=== PATIENT | female | born 1940 | race Caucasian/White ===

== ENCOUNTER → 2019-10-24 11:47 | Outpatient (BNVA) | payer MEDICARE, OTHER, SELFPAY | PROVIDERS: Family Provider Family Medicine; PCP Family Medicine; Referring Provider Family Medicine; Visit Provider Specialist | DX: M25.561 Pain in right knee (principal); M77.31 Calcaneal spur, right foot | CPT/HCPCS: 73560; 73565 ==

== ENCOUNTER → 2019-11-16 10:56 | Outpatient (BNVA) | payer MEDICARE, OTHER, SELFPAY | PROVIDERS: Family Provider Family Medicine; PCP Family Medicine; Visit Provider Nurse Practitioner | DX: R05 Cough (principal); R50.9 Fever, unspecified; J01.10 Acute frontal sinusitis, unspecified; J20.8 Acute bronchitis due to other specified organisms; B96.89 Other specified bacterial agents as the cause of diseases classified elsewhere | CPT/HCPCS: 87804 ==

== ENCOUNTER → 2019-11-22 00:01 | Outpatient (BNVA) | payer MEDICARE, OTHER, SELFPAY | PROVIDERS: Family Provider Family Medicine; PCP Family Medicine; Visit Provider Nurse Practitioner Family | DX: R05 Cough (principal); J02.9 Acute pharyngitis, unspecified; Z79.01 Long term (current) use of anticoagulants; E11.9 Type 2 diabetes mellitus without complications; J20.8 Acute bronchitis due to other specified organisms; B96.89 Other specified bacterial agents as the cause of diseases classified elsewhere; J32.9 Chronic sinusitis, unspecified; Z95.0 Presence of cardiac pacemaker; I51.7 Cardiomegaly | CPT/HCPCS: 71046; 83036; 85025; 85610; 87081; 87880 ==

== ENCOUNTER → 2020-01-16 12:35 | Outpatient (BNVA) | payer MEDICARE, OTHER, SELFPAY | PROVIDERS: Family Provider Family Medicine; PCP Family Medicine; Visit Provider Family Medicine | DX: I48.91 Unspecified atrial fibrillation (principal) | CPT/HCPCS: 85610 ==

== ENCOUNTER → 2020-04-10 11:16 | Outpatient (BNVA) | payer MEDICARE, OTHER, SELFPAY | PROVIDERS: Family Provider Family Medicine; PCP Nurse Practitioner Family; Visit Provider Nurse Practitioner Family | DX: E11.65 Type 2 diabetes mellitus with hyperglycemia (principal); I48.91 Unspecified atrial fibrillation; E55.9 Vitamin D deficiency, unspecified | CPT/HCPCS: 80053; 80061; 82306; 83036; 85025; 85610 ==

== ENCOUNTER → 2020-04-14 10:24 | Outpatient (BNVA) | payer MEDICARE, OTHER, SELFPAY | PROVIDERS: Family Provider Family Medicine; PCP Nurse Practitioner Family; Visit Provider Nurse Practitioner Family | DX: E11.9 Type 2 diabetes mellitus without complications (principal); I10 Essential (primary) hypertension; E11.65 Type 2 diabetes mellitus with hyperglycemia | CPT/HCPCS: 82043 ==

== ENCOUNTER → 2020-05-20 14:30 | Outpatient (BNVA) | payer MEDICARE, OTHER, SELFPAY | PROVIDERS: Family Provider Family Medicine; PCP Nurse Practitioner Family | DX: I48.91 Unspecified atrial fibrillation (principal); Z95.0 Presence of cardiac pacemaker | CPT/HCPCS: 85610 ==

== ENCOUNTER → 2020-07-06 12:12 | Outpatient (BNVA) | payer MEDICARE, OTHER, SELFPAY | PROVIDERS: Family Provider Family Medicine; PCP Nurse Practitioner Family; Visit Provider Nurse Practitioner Family | DX: I10 Essential (primary) hypertension (principal); E11.9 Type 2 diabetes mellitus without complications; Z79.01 Long term (current) use of anticoagulants | CPT/HCPCS: 80053; 80061; 83036; 85025; 85610 ==

== ENCOUNTER → 2020-08-26 16:55 | Outpatient (BNVA) | payer MEDICARE, OTHER, SELFPAY | PROVIDERS: Family Provider Family Medicine; PCP Nurse Practitioner Family; Visit Provider Nurse Practitioner Family | DX: I48.91 Unspecified atrial fibrillation (principal) | CPT/HCPCS: 85610 ==

== ENCOUNTER 2020-08-28 10:09 | Outpatient (CLI) | payer MEDICARE, OTHER, SELFPAY ==
--- NOTE | 2020-08-28 | CT_ITS ---
WS: [id number] CT NECK TECHNIQUE: Contrast-enhanced CT of the neck with coronal and sagittal reformatted images. CLINICAL INFORMATION: DISORDERS OF NOSE AND NASAL SINUSES COMPARISON: CT neck 3 13,018 DLP: 2855.[address] scans at [facility] use at least one of these dose optimization techniques: automat ed exposure control; mA and/or kV adjustment per patient size (includes targeted exams where dose is matched to clinical indication); or iterative reconstruction. FINDINGS: Parotid glands are normal. Normal submandibular glands. Dental artifact degrades images at the skull base. Mastoid air cells and paranasal sinuses are well aerated. Normal parapharyngeal fat. Normal pos terior nasopharynx. No cervical lymphadenopathy. No evidence of supraglottic or glottic mass. Normal epiglottis. Subglottic airway is normal. Multinodular enlarged thyroid similar in appearance to previ ous. Lung apices are well aerated. Partially visualized intracranial contents are normal. Hypertrophic diego nges cervical spine. Cervical lymphadenopathy. CT/CT neck w con* [id number] IMPRESSION: 1. Salivary glands are normal in appearance. 2. No evidence of supraglottic or glottic mass. Subglottic airway is normal. 3. No cervical lymphadenopathy. 4. Multinodular enlarged thyroid is unchanged.
[2020-08-28 10:54] LABS: Blood Urea Nitrogen 21 mg/dL (8-23)
== END 2020-08-28 10:10 | disposition home or self-care (01) ==
LOC: RADWPI 10:16
PROVIDERS: PCP Family Medicine; Visit Provider Specialist
DX: J34.89 Other specified disorders of nose and nasal sinuses (principal); R13.19 Other dysphagia; E04.2 Nontoxic multinodular goiter
CPT/HCPCS: 70491; 82565; 84520

== ENCOUNTER → 2020-11-19 11:25 | Outpatient (BNVA) | payer MEDICARE, OTHER, SELFPAY | PROVIDERS: PCP Family Medicine; Visit Provider Specialist | DX: M17.11 Unilateral primary osteoarthritis, right knee (principal) ==

== ENCOUNTER → 2021-01-14 11:33 | Outpatient (BNVA) | payer MEDICARE, OTHER, SELFPAY | PROVIDERS: PCP Family Medicine; Visit Provider Nurse Practitioner Family | DX: E78.2 Mixed hyperlipidemia (principal); I10 Essential (primary) hypertension; E11.9 Type 2 diabetes mellitus without complications; I48.19 Other persistent atrial fibrillation; M1A.9XX0 Chronic gout, unspecified, without tophus (tophi); J30.89 Other allergic rhinitis; Z79.4 Long term (current) use of insulin | CPT/HCPCS: 80053; 80061; 83036; 84443; 84550; 85025; 85610 ==

== ENCOUNTER → 2021-01-18 12:09 | Outpatient (BNVA) | payer MEDICARE, OTHER, SELFPAY | PROVIDERS: PCP Family Medicine; Visit Provider Nurse Practitioner Family | DX: I48.19 Other persistent atrial fibrillation (principal) | CPT/HCPCS: 85610 ==

== ENCOUNTER → 2021-02-01 11:53 | Outpatient (BNVA) | payer MEDICARE, OTHER, SELFPAY | PROVIDERS: PCP Family Medicine; Visit Provider Family Medicine | DX: I48.19 Other persistent atrial fibrillation (principal) | CPT/HCPCS: 85610 ==

== ENCOUNTER → 2021-02-17 15:39 | Outpatient (BNVA) | payer MEDICARE, OTHER, SELFPAY | PROVIDERS: PCP Family Medicine; Visit Provider Nurse Practitioner Family | DX: I48.19 Other persistent atrial fibrillation (principal) | CPT/HCPCS: 85610 ==

== ENCOUNTER → 2021-03-01 13:52 | Outpatient (BNVA) | payer MEDICARE, OTHER, SELFPAY | PROVIDERS: PCP Family Medicine; Visit Provider Nurse Practitioner Family | DX: R19.7 Diarrhea, unspecified (principal) | CPT/HCPCS: 83630; 87493; 87506 ==

== ENCOUNTER → 2021-03-24 11:18 | Outpatient (BNVA) | payer MEDICARE, OTHER, SELFPAY | PROVIDERS: PCP Family Medicine; Visit Provider Family Medicine | DX: R19.7 Diarrhea, unspecified (principal); I48.19 Other persistent atrial fibrillation | CPT/HCPCS: 85610; 87338 ==

== ENCOUNTER → 2021-04-26 11:32 | Outpatient (BNVA) | payer MEDICARE, OTHER, SELFPAY | PROVIDERS: PCP Family Medicine; Visit Provider Nurse Practitioner Family | DX: R79.89 Other specified abnormal findings of blood chemistry (principal); I48.19 Other persistent atrial fibrillation | CPT/HCPCS: 84439; 84443; 84481; 85610 ==

== ENCOUNTER 2021-06-03 09:24 | Outpatient (CLI) | payer MEDICARE, OTHER, SELFPAY ==
--- NOTE | 2021-06-03 09:44 | FL_ITS ---
WS: [id number] ESOPHAGRAM TECHNIQUE: Double contrast examination was performed with thin and thick barium. Upright and BEGUM imag es were obtained. CLINICAL INFORMATION: DYSPHAGIA COMPARISON: Barium swallow 3 16,018 FINDINGS: Exam is somewhat limited due to difficulty swallowing. Swallowing: No evidence of aspiration or penetration. Delayed oropharyngeal phase with small swallows . Esophagus: Moderate to advanced esophageal dysmotility with delayed emptying on the upright and supin e positions. No high-grade stricture or obstructing mass. Gastroesophageal reflux: Moderate reflux is visualized in the supine position with delayed emptying. Small esophageal hiatal hernia. Moderate spondylitic changes cervical spine with protruding osteophytes at C4-C6 with slight indentat ion on the pharynx. No significant pharyngeal stenosis. Cardiac pacer. * Fluoroscopy time: 2.8 minutes. FL/FL barium swallow [id number] IMPRESSION: 1. No evidence of high-grade stricture or obstructing mass. 2. Moderate to advanced esophageal dysmotility with delayed emptying. Associat ed tertiary contractions. 3. Moderate esophageal reflux on the supine imaging with delayed emptying. Sma ll esophageal hiatal hernia. 4. No aspiration or penetration.
--- NOTE | 2021-06-03 09:44 | CT_ITS ---
WS: [id number] CT NECK TECHNIQUE: Contrast-enhanced CT of the neck with coronal and sagittal reformatted images. CLINICAL INFORMATION: DYSPHAGIA COMPARISON: CT neck August 28, 2020 DLP: 980.[address] scans at [facility] use at least one of these dose optimization techniques: automated e xposure control; mA and/or kV adjustment per patient size (includes targeted exams where dose is matc hed to clinical indication); or iterative reconstruction. FINDINGS: Parotid glands are normal. Normal submandibular glands. Paranasal sinuses and mastoid air cells well aerated. No evidence of supraglottic or glottic mass. Normal posterior nasopharynx. Normal parapharyn geal fat. Normal vallecula. Subglottic airway is normal. Mild smooth soft tissue thickening along the posterior pharynx at the level of the hyoid with loss of the normal flat fat plane. This is likely related to prominent anterior hypertrophic changes at C4-C 6 with a small amount of retropharyngeal fluid. This can be further evaluated with endoscopy. Multino dular enlarged thyroid with mild right to left mass effect on the trachea unchanged from previous. No significant airway stenosis. No cervical lymphadenopathy. Lung apices are well aerated. Moderate spondylitic changes cervical spine. No cervical lymphadenopathy. CT/CT neck w con* [id number] IMPRESSION: 1. Normal salivary glands. 2. Mild posterior pharyngeal soft tissue thickening at the level of the hyoid extending from C4 through C6 likely related to anterior hypertrophic cervical c hanges with soft tissue thickening and a small amount of inflammatory retrophar yngeal fluid. This appears new or more prominent compared to previous. 3. Otherwise no evidence of supraglottic or glottic mass. 4. No cervical lymphadenopathy. 5. Multinodular heterogeneous enlarged thyroid unchanged from previous with mi ld mass effect on the upper trachea. 6. Paranasal sinuses and mastoid air cells are well aerated. 7. No other significant findings.
[2021-06-03 10:27] LABS: Blood Urea Nitrogen 23 mg/dL (8-23)
[2021-06-03] MEDS: iohexol 300 mg/mL 100 mL Btl IV (10:36)
== END 2021-06-03 09:25 | disposition home or self-care (01) ==
PROVIDERS: PCP Family Medicine; Visit Provider Specialist
DX: R13.19 Other dysphagia (principal); E04.2 Nontoxic multinodular goiter; K21.9 Gastro-esophageal reflux disease without esophagitis
CPT/HCPCS: 70491; 74220; 82565; 84520; Q9967

== ENCOUNTER → 2021-06-11 13:58 | Outpatient (BNVA) | payer MEDICARE, OTHER, SELFPAY | PROVIDERS: PCP Family Medicine; Visit Provider Nurse Practitioner Family | DX: I48.19 Other persistent atrial fibrillation (principal); Z79.01 Long term (current) use of anticoagulants | CPT/HCPCS: 85610 ==

== ENCOUNTER → 2021-07-07 11:09 | Outpatient (BNVA) | payer MEDICARE, OTHER, SELFPAY | PROVIDERS: PCP Family Medicine; Visit Provider Internal Medicine | DX: E11.9 Type 2 diabetes mellitus without complications (principal); E78.2 Mixed hyperlipidemia; I10 Essential (primary) hypertension; Z79.4 Long term (current) use of insulin; I48.19 Other persistent atrial fibrillation | CPT/HCPCS: 80053; 80061; 83036; 84439; 84443; 84480; 85025; 85610 ==

== ENCOUNTER → 2021-07-14 14:44 | Outpatient (BNVA) | payer MEDICARE, OTHER, SELFPAY | PROVIDERS: PCP Family Medicine; Visit Provider Family Medicine | DX: R79.89 Other specified abnormal findings of blood chemistry (principal) | CPT/HCPCS: 80053 ==

== ENCOUNTER → 2021-08-17 10:58 | Outpatient (BNVA) | payer MEDICARE, OTHER, SELFPAY | PROVIDERS: PCP Family Medicine; Visit Provider Family Medicine | DX: R07.81 Pleurodynia (principal); Z71.89 Other specified counseling | CPT/HCPCS: 71046; 80048; 84439; 84443; 84480; 85610 ==

== ENCOUNTER → 2021-09-15 13:40 | Outpatient (BNVA) | payer MEDICARE, OTHER, SELFPAY | PROVIDERS: PCP Family Medicine; Visit Provider Internal Medicine | DX: E05.90 Thyrotoxicosis, unspecified without thyrotoxic crisis or storm (principal); E07.9 Disorder of thyroid, unspecified; E11.42 Type 2 diabetes mellitus with diabetic polyneuropathy; Z79.4 Long term (current) use of insulin | CPT/HCPCS: 99214 ==

== ENCOUNTER → 2021-11-08 11:58 | Outpatient (BNVA) | payer MEDICARE, OTHER, SELFPAY | PROVIDERS: PCP Family Medicine; Visit Provider Nurse Practitioner Family | DX: N61.0 Mastitis without abscess (principal); Z20.822 Contact with and (suspected) exposure to COVID-19 | CPT/HCPCS: 87635 ==

== ENCOUNTER 2021-11-16 11:33 | Outpatient (CLI) | payer MEDICARE, OTHER, SELFPAY ==
--- NOTE | 2021-11-16 11:38 | MM_ITS ---
WS: [id number] SCREENING DIGITAL MAMMOGRAM WITH CAD HISTORY: SCREEN COMPARISON: 05/23/2019, 11/28/2017 at 08/09/2016 Bilateral CC and MLO views submitted. Computer aided detection analyzed. Breast composition: The breasts are heterogeneously dense, which may obscure small masses. There are numerous masses within each breast. Majority of these are stable. Some of these are moles. There is o ne mass measuring 6 mm along the posterior LEFT chest wall just medial to the nipple line. Not defini tely visualized on the lateral projection. This may be a mole but it is not marked. This 6 mm nodule was not seen on the prior studies. MM/[place] [id number] IMPRESSION: BI-RADS: 0-Incomplete: Need additional imaging evaluation FOLLOW UP: Need Additional Imaging LEFT breast: Spot compression views (CC and MLO). True ML. Ultrasound to follow if abnormality persists. Attempted evaluation of the 6 mm nodule in the diathermy equipment repairer ior LEFT breast. This may be a mole without a marker placed. Not definitely vis ualized on prior studies.
== END 2021-11-16 11:34 | disposition home or self-care (01) ==
LOC: RADSHAW 11:34
PROVIDERS: PCP Family Medicine; Visit Provider Family Medicine
DX: Z12.31 Encounter for screening mammogram for malignant neoplasm of breast (principal)
CPT/HCPCS: 77067

== ENCOUNTER → 2021-11-30 08:29 | Outpatient (BNVA) | payer MEDICARE, OTHER, SELFPAY | PROVIDERS: PCP Family Medicine; Visit Provider Nurse Practitioner Family | DX: E11.42 Type 2 diabetes mellitus with diabetic polyneuropathy (principal); M1A.9XX0 Chronic gout, unspecified, without tophus (tophi); I48.91 Unspecified atrial fibrillation; E78.5 Hyperlipidemia, unspecified; I10 Essential (primary) hypertension | CPT/HCPCS: 80053; 80061; 82043; 83036; 84550; 85025; 85610 ==

== ENCOUNTER 2021-12-03 10:53 | Outpatient (CLI) | payer MEDICARE, OTHER, SELFPAY ==
--- NOTE | 2021-12-03 12:00 | MM_ITS ---
WS: [id number] LEFT 3D TOMOSYNTHESIS DIGITAL MAMMOGRAPHY WITH CAD CLINICAL INFORMATION: LT BREAST NODULE HISTORY: COMPARISON: November 16, 2021 TECHNIQUE: 4 views of the left breast were obtained. FINDINGS: Scattered fibroglandular densities of the left breast. Again seen is a 6 mm nodule along the posterio r LEFT chest wall at the edge of the [id number]. This may represent an intramammary lymph node. Ul trasound is pending. ULTRASOUND BREAST LEFT TECHNIQUE: Ultrasound left breast focused area of concern. CLINICAL INFORMATION: LT BREAST NODULE COMPARISON: None. FINDINGS: Ultrasound LEFT breast 6 to 9:00 position. Small 5 x 5 x 3 mm hypoechoic lesion at the 6:00 position may represent a complex cyst or semisolid lesion. Additional complex cyst at the 7:00 position measur ing 5 x 5 x 3 mm. Findings are probably benign. Recommend 6 month follow-up. MM/MM tomos[place] [id number] IMPRESSION: BI-RADS: 3-Probably Benign FOLLOW UP: 6 Month Follow-up Recommend 6 month follow-up LEFT diagnostic mammography and ultrasound.
== END 2021-12-03 10:54 | disposition home or self-care (01) ==
PROVIDERS: PCP Family Medicine; Visit Provider Family Medicine
DX: N63.25 Unspecified lump in the left breast, overlapping quadrants (principal); N60.02 Solitary cyst of left breast
CPT/HCPCS: 76642; 77061

== ENCOUNTER → 2022-01-13 14:33 | Outpatient (BNVA) | payer MEDICARE, OTHER, SELFPAY | PROVIDERS: PCP Family Medicine; Visit Provider Internal Medicine | DX: E11.42 Type 2 diabetes mellitus with diabetic polyneuropathy (principal); E07.9 Disorder of thyroid, unspecified; Z79.4 Long term (current) use of insulin | CPT/HCPCS: 99214 ==

== ENCOUNTER → 2022-01-21 10:36 | Outpatient (BNVA) | payer MEDICARE, OTHER, SELFPAY | PROVIDERS: PCP Family Medicine; Visit Provider Internal Medicine Cardiovascular Disease | DX: I48.19 Other persistent atrial fibrillation (principal); Z45.010 Encounter for checking and testing of cardiac pacemaker pulse generator [battery]; I12.9 Hypertensive chronic kidney disease with stage 1 through stage 4 chronic kidney disease, or unspecified chronic kidney disease; E11.22 Type 2 diabetes mellitus with diabetic chronic kidney disease; N18.9 Chronic kidney disease, unspecified; Z79.4 Long term (current) use of insulin; Z79.84 Long term (current) use of oral hypoglycemic drugs; E11.42 Type 2 diabetes mellitus with diabetic polyneuropathy; E78.5 Hyperlipidemia, unspecified; Z79.01 Long term (current) use of anticoagulants | CPT/HCPCS: 93280; 99213 ==

== ENCOUNTER → 2022-01-27 14:48 | Outpatient (BNVA) | payer MEDICARE, OTHER, SELFPAY | PROVIDERS: PCP Family Medicine; Visit Provider Nurse Practitioner Family | DX: Z79.01 Long term (current) use of anticoagulants (principal) | CPT/HCPCS: 85610 ==

== ENCOUNTER → 2022-02-17 10:21 | Outpatient (BNVA) | payer MEDICARE, OTHER, SELFPAY | PROVIDERS: PCP Family Medicine; Visit Provider Specialist | DX: M17.0 Bilateral primary osteoarthritis of knee (principal); M25.561 Pain in right knee; M25.562 Pain in left knee | CPT/HCPCS: 20610; 73560; 73565; 99213; J7326 ==

== ENCOUNTER → 2022-03-10 14:20 | Outpatient (BNVA) | payer MEDICARE, OTHER, SELFPAY | PROVIDERS: PCP Family Medicine; Visit Provider Nurse Practitioner Family | DX: I48.91 Unspecified atrial fibrillation (principal) | CPT/HCPCS: 85610 ==

== ENCOUNTER → 2022-03-30 14:01 | Outpatient (BNVA) | payer MEDICARE, OTHER, SELFPAY | PROVIDERS: PCP Family Medicine; Visit Provider Nurse Practitioner Family | DX: I48.91 Unspecified atrial fibrillation (principal); E11.9 Type 2 diabetes mellitus without complications; Z79.4 Long term (current) use of insulin; E11.42 Type 2 diabetes mellitus with diabetic polyneuropathy | CPT/HCPCS: 83036; 84439; 84443; 85610 ==

== ENCOUNTER → 2022-04-08 09:39 | Outpatient (BNVA) | payer MEDICARE, OTHER, SELFPAY | PROVIDERS: PCP Family Medicine; Visit Provider Nurse Practitioner Family | DX: I10 Essential (primary) hypertension (principal); J06.9 Acute upper respiratory infection, unspecified; Z20.822 Contact with and (suspected) exposure to COVID-19; Z11.52 Encounter for screening for COVID-19; J02.9 Acute pharyngitis, unspecified | CPT/HCPCS: 80053 ==

== ENCOUNTER → 2022-05-06 15:21 | Outpatient (BNVA) | payer MEDICARE, OTHER, SELFPAY | PROVIDERS: PCP Family Medicine; Visit Provider Family Medicine | DX: I48.91 Unspecified atrial fibrillation (principal) | CPT/HCPCS: 85610 ==

== ENCOUNTER → 2022-05-17 15:48 | Outpatient (BNVA) | payer MEDICARE, OTHER, SELFPAY | PROVIDERS: PCP Family Medicine; Visit Provider Nurse Practitioner Family | DX: M79.642 Pain in left hand (principal); M65.30 Trigger finger, unspecified finger; R92.8 Other abnormal and inconclusive findings on diagnostic imaging of breast; E11.42 Type 2 diabetes mellitus with diabetic polyneuropathy | CPT/HCPCS: 73130 ==

== ENCOUNTER → 2022-07-05 13:58 | Outpatient (BNVA) | payer MEDICARE, OTHER, SELFPAY | PROVIDERS: PCP Family Medicine; Visit Provider Internal Medicine Cardiovascular Disease | DX: I48.19 Other persistent atrial fibrillation (principal); Z79.01 Long term (current) use of anticoagulants; I12.9 Hypertensive chronic kidney disease with stage 1 through stage 4 chronic kidney disease, or unspecified chronic kidney disease; E11.22 Type 2 diabetes mellitus with diabetic chronic kidney disease; N18.9 Chronic kidney disease, unspecified; Z79.4 Long term (current) use of insulin; E78.2 Mixed hyperlipidemia; E11.42 Type 2 diabetes mellitus with diabetic polyneuropathy | CPT/HCPCS: 99214 ==

== ENCOUNTER 2022-07-13 14:41 | Outpatient (CLI) | payer MEDICARE, OTHER, SELFPAY ==
--- NOTE | 2022-07-13 14:49 | MM_ITS ---
WS: [id number] LEFT 3D TOMOSYNTHESIS DIGITAL MAMMOGRAPHY WITH CAD CLINICAL INFORMATION: R92.8 - Other abnormal and inconclusive findings on diagn... HISTORY: Six-month follow-up COMPARISON: December 03, 2021 TECHNIQUE: 3 views of the left breast were obtained. FINDINGS: Scattered fibroglandular densities of the left breast. Nodular breast parenchyma is unchanged in appe arance compared to previous. Ultrasound described below. Incidental punctate calcifications. ULTRASOUND BREAST LEFT TECHNIQUE: Ultrasound left breast focused area of concern. CLINICAL INFORMATION: R92.8 - Other abnormal and inconclusive findings on diagn... COMPARISON: December 03, 2021 FINDINGS: Ultrasound LEFT breast at the 6 to 7:00 position. 6:00 complex lesion 3 cm from the nipple measures 7.4 x 5.1 x 6.5 mm increased in size from previous where it measured 5.1 x 4.5 x 3.4 mm. Considering increasing size recommend further evaluation with u ltrasound-guided biopsy. 7:00 lesion 2 cm from the nipple measures 6.1 x 6.3 x 3.6 mm cc with a nipple small amount of interna l echogenicity and through transmission. This is not significantly changed in appearance compared to previous. Recommend additional six-month follow-up of this lesion to confirm stability. MM/[place] [id number] IMPRESSION: BI-RADS: 4-Suspicious Finding-Biopsy Should Be Considered FOLLOW UP: US Guided Biopsy Recommended 6 o'clock lesion LEFT breast cyst has increased in size compared to previous an d remains indeterminate with a complex appearance. Recommend ultrasound-guided biopsy for more definitive evaluation.
== END 2022-07-13 14:42 | disposition home or self-care (01) ==
LOC: RAD 14:42
PROVIDERS: PCP Family Medicine; Visit Provider Nurse Practitioner Family
DX: R92.8 Other abnormal and inconclusive findings on diagnostic imaging of breast (principal); N63.25 Unspecified lump in the left breast, overlapping quadrants
CPT/HCPCS: 76642; 77061

== ENCOUNTER → 2022-07-19 15:28 | Outpatient (BNVA) | payer MEDICARE, OTHER, SELFPAY | PROVIDERS: PCP Family Medicine; Visit Provider Family Medicine | DX: I48.91 Unspecified atrial fibrillation (principal); Z79.01 Long term (current) use of anticoagulants | CPT/HCPCS: 85610 ==

== ENCOUNTER 2022-08-17 12:30 | Outpatient (CLI) | payer MEDICARE, OTHER, SELFPAY ==
--- NOTE | 2022-08-17 12:38 | US_ITS ---
WS: [id number] ULTRASOUND-GUIDED LEFT BREAST BIOPSY HISTORY: Biopsy LEFT breast mass at 6:00. COMPARISON: None. Procedure, risks and complications are explained to the patient. Medications are reviewed. Consent is obtained. The mass in the LEFT breast is localized with ultrasound. Mass localizes to 6:00. This mass is slight ly smaller than on the prior study. Skin is cleansed with ChloraPrep and anesthetized with 1% buffere d lidocaine. Small dermatome is made. Under sterile conditions mass is biopsied with a 14-gauge Achie ve needle. Multiple core biopsies are performed. After the initial biopsy this mass became much small er and was much more difficult to visualize. Only 2 core biopsies were obtained. Material placed in f ormalin and sent to pathology for review. No complications encountered. Breast tissue marker (Bard ultrasound enhanced ribbon): Single. Patient left the radiology suite with no complications. Patient is instructed to return to [facility] or [facility] with any concerns. US/[place] [id number] IMPRESSION: 1. Uncomplicated core needle biopsy LEFT breast mass at 6:00, 2 cm from the ni pple. PATHOLOGY: Benign breast tissue with fibrocystic changes and columnar cell bella ges. No malignancy. RECOMMENDATION: Diagnostic LEFT mammogram follow-up in 6 months. Ultrasound may also be necessary.
== END 2022-08-17 12:31 | disposition home or self-care (01) ==
LOC: RAD 12:30
PROVIDERS: PCP Family Medicine; Visit Provider Nurse Practitioner Family
DX: N63.25 Unspecified lump in the left breast, overlapping quadrants (principal)
CPT/HCPCS: 19083; 88305

== ENCOUNTER → 2022-10-25 15:50 | Outpatient (BNVA) | payer MEDICARE, OTHER, SELFPAY | PROVIDERS: PCP Family Medicine; Visit Provider Family Medicine | DX: N18.9 Chronic kidney disease, unspecified (principal); E11.42 Type 2 diabetes mellitus with diabetic polyneuropathy; M1A.9XX0 Chronic gout, unspecified, without tophus (tophi); I10 Essential (primary) hypertension; E78.5 Hyperlipidemia, unspecified; R19.7 Diarrhea, unspecified | CPT/HCPCS: 80053; 80061; 83036; 84443; 84550; 85025; 85610 ==

== ENCOUNTER → 2022-11-24 11:40 | Outpatient (BNVA) | payer MEDICARE, OTHER, SELFPAY | PROVIDERS: PCP Family Medicine; Visit Provider Specialist | DX: M17.0 Bilateral primary osteoarthritis of knee (principal) | CPT/HCPCS: 20610; J7326 ==

== ENCOUNTER 2022-12-15 23:04 | Emergency (ER) | payer MEDICARE, OTHER, SELFPAY ==
[2022-12-15 23:05] VITALS: BP 171/100; PULSE 71; RESP 17; TEMP 36.5; O2SAT 95; BMI 32.9
--- NOTE | 2022-12-15 23:38 | ED_ITS ---
HPI - Extremity Problem General: Chief complaint: Extremity Problem,Nontraumatic Stated complaint: Rt Toe Bone Showing Time Seen by Provider: 12/15/22 23:05 History of Present Illness: Patient is in today for pain to her second toe right foot. She reports that she has had bony correction surgery of that toe in the past. She reports that sometimes it does hurt her and rub however her daughter has been in the hospital and she has been doing a lot of extra walking due to this. She reports that she thinks it has been inflamed but it feels like the bone is coming through the skin. Associated symptoms: Deny chest pain or fever(s) Review of Systems Const: Denies: fever(s) or chills Card: Denies: chest pain or palpitations Resp: Denies: dyspnea, productive cough or non-productive cough Musc: Reports: joint pain PFSH ED PFSH: Medical History Atrial fibrillation Diabetes Environmental and seasonal allergies GERD (gastroesophageal reflux disease) History of nonmelanoma skin cancer History of pacemaker History of staph infection Warfarin anticoagulation Family History Other Hypertension Social History Smoking and tobacco status: never smoked Second hand smoke exposure: No Alcohol intake: current Alcohol intake frequency: holidays/special occasions only Lives independently: Yes Household members: children Marital status: / Current occupational status: retired Current gender identity: Female Special paz needs: No Physical Exam Const: COMMON NORMALS: no acute distress, patient oriented x3 and alert Resp: COMMON NORMALS: normal respiratory effort and No use of accessory muscles Extremity: OTHER: Patient patient has what appears to be a hammertoe deformity of the right foot second toe. Skin is intact. There is no erythema. No obvious soft tissue deformity. Patient is able to flex and extend the toe without difficulty, but it is mostly in a flexed position at rest. It is tender over the flexed joint. Straightening the toe out relieves pain. Neuro: COMMON NORMALS: patient oriented x3 SENSORIUM/ORIENTATION: Yes alert Course Vital Signs: Vital signs: Vital Signs Temperature 97.7 F 12/15/22 23:05 Pulse Rate 71 12/15/22 23:05 Respiratory Rate 17 12/15/22 23:05 Blood Pressure 171/100 12/15/22 23:05 Pulse Oximetry 95 12/15/22 23:05 Oxygen Delivery Me thod 12/15/22 23:05 MDM - Extremity (Nontraumatic) Medical Decision Making Patient is in for her toe pain has been worsening over the past 1 to 2 weeks that she has been walking x-ray with her daughter in the hospital. Physical exam is consistent with what appears to be a hammertoe of the second toe on the right foot. I did offer an x-ray however patient declines at this time and I agree we will refer patient to podiatry for further evaluation and treatment. I did go ahead and imelda tape the first and second toe for tonight to provide comfort and immediate relief. Encouraged the patient to use cushion pads that can be bought [id number] and wear loose-fitting shoes. Follow-up with podiatry. Return to the ER for new or worsening symptoms. Patient is agreeable with plan of care and all questions were answered to satisfaction. Discharged in stable condition Discharge Plan Discharge Patient Disposition: Home Clinical Impression: Hammertoe Qualifiers: Laterality: right Qualified Code(s): M20.41 - Other hammer toe(s) (acquired), right foot Condition: Stable Prescriptions: No Action (DME) mDINR See Rx Instructions .Route .MEDSUPPLY Qty: 1 0RF Rx Instructions: As directed (DME) Blood Glucose Test Strip See Rx Instructions .ROUTE .MEDSUPPLY Qty: 100 2RF Rx Instructions: As directed; to test TID cetirizine 10 mg tablet See Rx Instructions .ROUTE .COMPLEX Qty: 30 1RF Dose Instruction: TAKE ONE TABLET BY MOUTH EVERY DAY Rx Instructions: TAKE ONE TABLET BY MOUTH EVERY DAY diphenoxylate-atropine [Lomotil] 2.5-0.025 mg tablet 1 tab PO TID PRN (Reason: diarrhea) Qty: 20 0RF insulin aspart U-100 [Novolog FlexPen U-100 Insulin] 100 unit/mL (3 mL) insulin pen See Rx Instructions .ROUTE .COMPLEX Qty: 30 2RF Dose Instruction: inject using sliding scale THREE TIMES DAILY UP TO 100 units DAILY Rx Instructions: inject using sliding scale THREE TIMES DAILY UP TO 100 units DAILY Lantus Solostar U-100 Insulin 100 unit/mL (3 mL) insulin pen See Rx Instructions .ROUTE .COMPLEX Qty: 63 2RF Dose Instruction: inject 35 units SUBCUTANEOUSLY TWICE DAILY Rx Instructions: inject 10 units in AM and 20 units in PM lisinopril-hydrochlorothiazide 20-12.5 mg tablet See Rx Instructions .ROUTE .COMPLEX Qty: 30 2RF Dose Instruction: TAKE ONE TABLET BY MOUTH EVERY DAY Rx Instructions: TAKE ONE TABLET BY MOUTH EVERY DAY methimazole 5 mg tablet 5 mg PO DAILY Qty: 90 1RF Rx Instructions: Take one tablet by mouth daily. ketoconazole 2 % cream 1 applic topical BID PRN (Reason: intertrigo) Qty: 60 1RF Rx Instructions: inframammary folds omeprazole 20 mg capsule,delayed release(DR/EC) See Rx Instructions .ROUTE .COMPLEX Qty: 60 1RF Dose Instruction: TAKE ONE CAPSULE BY MOUTH TWICE DAILY Rx Instructions: TAKE ONE CAPSULE BY MOUTH TWICE DAILY (DME) pen needle, diabetic [TRUEplus Pen Needle] 31 gauge x 5/16 needle See Rx Instructions .ROUTE .COMPLEX Qty: 100 11RF Dose Instruction: USE THREE TIMES DAILY Rx Instructions: USE FIVE TIMES DAILY warfarin 4 mg tablet See Rx Instructions .ROUTE .COMPLEX Qty: 30 1RF Protocol: Dose Management Condition: Monday Dose/Route: 4 mg Instruction: 1 x 4 mg tablet Condition: Monday Dose/Route: 2 mg Instruction: 0.5 x 4 mg tablets Condition: Monday Dose/Route: 4 mg Instruction: 1 x 4 mg tablet Condition: Monday Dose/Route: 4 mg Instruction: 1 x 4 mg tablet Condition: Dose/Route: 4 mg Instruction: 1 x 4 mg tablet Condition: Monday Dose/Route: 4 mg Instruction: 1 x 4 mg tablet Condition: Monday Dose/Route: 4 mg Instruction: 1 x 4 mg tablet Protocol Text: Adjustment Start Date: Monday10/25/22 INR Value: 26.00 SECONDS INR Date: 10/25/22 Recheck Date: 11/24/22 Dose Instruction: TAKE ONE TABLET BY MOUTH EVERY DAY Rx Instructions: TAKE ONE TABLET BY MOUTH EVERY DAY febuxostat 40 mg tablet See Rx Instructions .ROUTE .COMPLEX Qty: 30 2RF Dose Instruction: TAKE ONE TABLET BY MOUTH EVERY DAY Rx Instructions: TAKE ONE TABLET BY MOUTH EVERY DAY warfarin 4 mg tablet See Rx Instructions .ROUTE .COMPLEX Qty: 30 1RF Protocol: Dose Management Condition: Monday Dose/Route: 4 mg Instruction: 1 x 4 mg tablet Condition: Monday Dose/Route: 2 mg Instruction: 0.5 x 4 mg tablets Condition: Monday Dose/Route: 4 mg Instruction: 1 x 4 mg tablet Condition: Monday Dose/Route: 4 mg Instruction: 1 x 4 mg tablet Condition: Dose/Route: 4 mg Instruction: 1 x 4 mg tablet Condition: Monday Dose/Route: 4 mg Instruction: 1 x 4 mg tablet Condition: Monday Dose/Route: 4 mg Instruction: 1 x 4 mg tablet Protocol Text: Adjustment Start Date: Monday10/25/22 INR Value: 26.00 SECONDS INR Date: 10/25/22 Recheck Date: 11/24/22 Dose Instruction: TAKE ONE TABLET BY MOUTH EVERY DAY ON monday,monday, MONDAY, monday AND monday Rx Instructions: TAKE ONE TABLET BY MOUTH EVERY DAY ON monday,monday, MONDAY, monday AND monday atorvastatin 40 mg tablet See Rx Instructions .ROUTE .COMPLEX Qty: 30 5RF Dose Instruction: TAKE ONE TABLET BY MOUTH EVERY DAY Rx Instructions: TAKE ONE TABLET BY MOUTH EVERY DAY (DME) FreeStyle Linda 2 Sensor Kit See Rx Instructions .ROUTE .COMPLEX Qty: 1 0RF Dose Instruction: DIRECTED Rx Instructions: DIRECTED metoprolol succinate 50 mg tablet extended release 24 hr See Rx Instructions .ROUTE .COMPLEX Qty: 45 1RF Dose Instruction: TAKE 1 AND 1/2 TABLETS BY MOUTH EVERY DAY Rx Instructions: TAKE 1 AND 1/2 TABLETS BY MOUTH EVERY DAY Discharge Orders: Discharge ED (Routine); Ordered 12/16/22 Ordered By: Nathaly Petersen Referrals: Dorothy Batista MD [Primary Care Provider] - Discharge Diet: Usual diet Discharge Activity: Resume usual activity Patient Instructions: Hammertoe Activity Restrictions/Additional Instructions: We imelda taped the toe for tonight to give you some immediate relief however after you remove the tape in 24 hours I would use the cushioning pads that you can buy [id number] for hammertoe. Make sure that you are wearing loosefitting shoes. A referral has been made to podiatry. Return to the ER as needed for new or worsening symptoms Coding Level of Care Code ED Principal Java Software Engineer for Maria Luisa Ingram
[2022-12-16 01:05] VITALS: BP 143/77; PULSE 60; RESP 16; O2SAT 94
--- NOTE | 2022-12-16 11:51 | DCPLANNER ---
Addendum entered by Tabitha Mullins 12/21/22 14:48: Patient had a follow up appointment scheduled with podiatry - patient did attend appointment Addendum entered by Tabitha Mullins 12/19/22 07:58: Patient has a follow up appointment scheduled for Monday, December 19, 2022 at 1:[address] Amezquita at ortho Original Note: cafe or restaurant manager had message to schedule a follow up appointment for patient with ortho. cafe or restaurant manager sent patients information to the front office staff at ortho. Patients information will be printed and reviewed. Clinic will call patient with appointment information.
== END 2022-12-16 01:06 | disposition home or self-care (01) ==
PROVIDERS: Emergency Provider Nurse Practitioner Family; PCP Family Medicine
DX: M20.41 Other hammer toe(s) (acquired), right foot (principal); Z79.4 Long term (current) use of insulin; Z79.01 Long term (current) use of anticoagulants; E11.9 Type 2 diabetes mellitus without complications; Z95.0 Presence of cardiac pacemaker
CPT/HCPCS: 99282

== ENCOUNTER → 2022-12-19 13:58 | Outpatient (BNVA) | payer MEDICARE, OTHER, SELFPAY | PROVIDERS: PCP Family Medicine; Visit Provider Podiatrist Foot & Ankle Surgery | DX: M20.41 Other hammer toe(s) (acquired), right foot (principal); E11.9 Type 2 diabetes mellitus without complications; Z79.4 Long term (current) use of insulin | CPT/HCPCS: 73630; 99203 ==

== ENCOUNTER 2023-03-03 14:06 | Outpatient (CLI) | payer MEDICARE, OTHER, SELFPAY ==
--- NOTE | 2023-03-03 14:13 | MM_ITS ---
WS: [id number] DIAGNOSTIC BILATERAL DIGITAL BREAST TOMOSYNTHESIS MAMMOGRAPHY WITH CAD HISTORY: 6MFU POST BX, LEFT breast COMPARISON: 11/16/2021, 05/23/2019, 07/13/2022, breast ultrasound 08/17/2022 TECHNIQUE: Bilateral craniocaudad, mediolateral oblique, and mediolateral views are submitted with to mosynthesis and SM. Spot compression LEFT CC and MLO. Computer aided detection utilized. Breast composition: There are scattered areas of fibroglandular density. The previously biopsied nodu le no longer present. Patient has multiple skin moles with markers placed. No residual mass or nodule is identified. There are numerous masses which are all stable. These are probably intramammary lymph nodes. MM/[place] [id number] IMPRESSION: BI-RADS: 2-Benign FOLLOW UP: 1 Year Follow-up Return to screening.
== END 2023-03-03 14:07 | disposition home or self-care (01) ==
LOC: RAD 14:08
PROVIDERS: PCP Family Medicine; Visit Provider Family Medicine
DX: I48.19 Other persistent atrial fibrillation (principal); E78.2 Mixed hyperlipidemia; E11.42 Type 2 diabetes mellitus with diabetic polyneuropathy; I12.9 Hypertensive chronic kidney disease with stage 1 through stage 4 chronic kidney disease, or unspecified chronic kidney disease; N18.9 Chronic kidney disease, unspecified; E11.22 Type 2 diabetes mellitus with diabetic chronic kidney disease; Z79.01 Long term (current) use of anticoagulants
CPT/HCPCS: 77062; 99214; G0279

== ENCOUNTER → 2023-04-05 11:00 | Outpatient (BNVA) | payer MEDICARE, OTHER, SELFPAY | PROVIDERS: PCP Family Medicine; Visit Provider Family Medicine | DX: I48.91 Unspecified atrial fibrillation (principal); E11.42 Type 2 diabetes mellitus with diabetic polyneuropathy; M1A.9XX0 Chronic gout, unspecified, without tophus (tophi); E78.5 Hyperlipidemia, unspecified; I10 Essential (primary) hypertension | CPT/HCPCS: 80053; 80061; 83036; 85025; 85610 ==

== ENCOUNTER → 2023-05-11 15:43 | Outpatient (BNVA) | payer MEDICARE, OTHER, SELFPAY | PROVIDERS: PCP Family Medicine; Visit Provider Family Medicine | DX: I48.91 Unspecified atrial fibrillation (principal); N18.9 Chronic kidney disease, unspecified; E11.9 Type 2 diabetes mellitus without complications; Z79.4 Long term (current) use of insulin | CPT/HCPCS: 85610 ==

== ENCOUNTER → 2023-05-24 16:26 | Outpatient (BNVA) | payer MEDICARE, OTHER, SELFPAY | PROVIDERS: PCP Family Medicine; Visit Provider Nurse Practitioner Family | DX: J02.9 Acute pharyngitis, unspecified (principal); R05.9 Cough, unspecified; Z79.01 Long term (current) use of anticoagulants | CPT/HCPCS: 85610; 87071; 87400; 87426; 87880 ==

== ENCOUNTER → 2023-06-08 15:25 | Outpatient (BNVA) | payer MEDICARE, OTHER, SELFPAY | PROVIDERS: PCP Family Medicine; Visit Provider Family Medicine | DX: I48.91 Unspecified atrial fibrillation (principal); N18.9 Chronic kidney disease, unspecified; E11.9 Type 2 diabetes mellitus without complications; Z79.4 Long term (current) use of insulin; Z79.01 Long term (current) use of anticoagulants; K21.9 Gastro-esophageal reflux disease without esophagitis | CPT/HCPCS: 85610 ==

== ENCOUNTER → 2023-08-09 13:23 | Outpatient (BNVA) | payer MEDICARE, OTHER, SELFPAY | PROVIDERS: PCP Family Medicine; Referring Provider Family Medicine; Visit Provider Surgery | DX: K21.9 Gastro-esophageal reflux disease without esophagitis (principal); K92.0 Hematemesis; J04.0 Acute laryngitis | CPT/HCPCS: 99204 ==

== ENCOUNTER → 2023-08-30 12:42 | Outpatient (BNVA) | payer MEDICARE, OTHER, SELFPAY | PROVIDERS: PCP Family Medicine; Visit Provider Specialist | DX: M17.0 Bilateral primary osteoarthritis of knee (principal); Z71.89 Other specified counseling | CPT/HCPCS: 20610 ==

== ENCOUNTER 2023-09-20 08:14 | Day surgery (SDC) | payer MEDICARE, OTHER, SELFPAY ==
[2023-09-20] MEDS: sodium chloride 0.9% 1,000 ML 30 ML IV (08:49)
[2023-09-20 08:53] VITALS: BP 148/87; PULSE 87; RESP 18; TEMP 36.5; O2SAT 93
[2023-09-20 09:05] LABS: OR HCG Qualitative Urine Negative (Negative)
[2023-09-20 09:11] LABS: Glucose Point of Care 165 mg/dL (70-110)
--- NOTE | 2023-09-20 09:21 | PM.HP ---
Providers/Chief Complaint Primary Care Provider: Diego Saucedo DO Chief Complaint: [id number] History of Present Illness Mae Rosa is a 82 year old female Review of Systems General: Reports: 10 or more systems reviewed and unremarkable except in HPI and below Medications/Allergies Home Medications Medication Instructions Recorded Confirmed Last Taken Type diphenoxylate-atropine 2.5 1 tab PO TID PRN diarrhea #20 tabs 11/03/22 09/15/23 09/19/23 Rx mg-0.025 mg tablet (Lomotil) insulin aspart U-100 100 unit/mL See Rx Instructions .Route 11/03/22 09/15/23 09/19/23 Rx (3 mL) subcutaneous pen (Novolog .COMPLEX #30 mL FlexPen U-100 Insulin aspart) pen needle, diabetic 31 gauge x #100 ea 11/03/22 09/15/23 09/15/23 Rx 5/16 (TRUEplus Pen Needle) flash glucose sensor (FreeStyle #1 kit 11/25/22 09/15/23 09/15/23 Rx Linda 2 Sensor kit) metoprolol succinate 50 mg 75 mg PO DAILY 03/03/23 09/15/23 09/20/23 History tablet,extended release 24 hr insulin glargine 100 unit/mL (3 See Rx Instructions .Route 05/11/23 09/15/23 09/19/23 Rx mL) subcutaneous pen (Lantus .COMPLEX #63 mL Solostar U-100 Insulin) pantoprazole 40 mg tablet,delayed 40 mg PO BID #60 tabs 06/08/23 09/15/23 09/19/23 Rx release blood sugar diagnostic (Blood #100 ea 06/23/23 09/15/23 09/15/23 Rx Glucose Test strips) lisinopril 20 1 tab PO DAILY #30 tabs 07/04/23 09/15/23 09/19/23 Rx mg-hydrochlorothiazide 12.5 mg tablet mupirocin 2 % topical ointment 1 applic topical BID #22 grams 07/20/23 09/15/23 09/19/23 Rx methimazole 5 mg tablet 5 mg PO DAILY #90 tabs 08/02/23 09/15/23 09/19/23 Rx apixaban 2.5 mg tablet 2.5 mg PO BID #60 tabs 08/24/23 09/15/23 09/17/23 Rx atorvastatin 40 mg tablet 40 mg PO DAILY 09/15/23 09/15/23 09/19/23 History cetirizine 10 mg tablet 10 mg PO DAILY 09/15/23 09/15/23 09/19/23 History febuxostat 40 mg tablet 40 mg PO DAILY 09/15/23 09/15/23 09/19/23 History Allergies Allergy/AdvReac Type Severity Reaction Status Date / Time aspirin Allergy vomit Verified 09/15/23 13:21 codeine Allergy vomit Verified 09/15/23 13:21 liraglutide [From Victoza] Allergy ADR-Vomitin Verified 09/15/23 13:21 g meperidine [From Demerol] Allergy vomit Verified 09/15/23 13:21 Penicillins Allergy hives Verified 09/15/23 13:21 PFSH Acute PFSH: Medical History GERD (gastroesophageal reflux disease) Warfarin anticoagulation Environmental and seasonal allergies History of nonmelanoma skin cancer Diabetes Atrial fibrillation History of pacemaker History of staph infection Family History Other Hypertension Social History Smoking and tobacco/nicotine status: never used tobacco/nicotine Second hand smoke exposure: No Alcohol intake: never Substance/Drug Use: never Lives independently: Yes Household members: children Marital status: / Current occupational status: retired Current gender identity: Female Special paz needs: No Female Reproductive History: Spontaneous abortions: No Vitals/I&O/Wt Last Vital Signs Temp 97.7 F 09/20/23 08:53 Pulse 87 09/20/23 08:53 Resp 18 09/20/23 08:53 BP 148/87 09/20/23 08:53 Pulse Ox 93 09/20/23 08:53 O2 Del Method Room Air 09/20/23 08:53 Weight last 48 hrs Weight 190 lb A&P Assessment and plan (1) GERD (gastroesophageal reflux disease): Qualifiers: Esophagitis presence: without esophagitis Qualified Code(s): K21.9 - Gastro-esophageal reflux disease without esophagitis (2) Hematemesis/vomiting blood: Plan EGD Attestations Medical Necessity Statement*: home Coding Level of Care Code Acute Code for Chg Fwd Diagnoses Gastroesophageal reflux disease without esophagitis K21.9 Esophagitis presence: without esophagitis Hematemesis/vomiting blood K92.0
--- NOTE | 2023-09-20 09:23 | ANES.PREANE2 ---
Pre-Anesthetic Assessment Height/Weight: Height 1.57 m Weight 86.183 kg Temp Pulse Resp BP Pulse Ox O2 Del Method 97.7 F 87 18 148/87 93 Room Air 09/20/23 08:53 09/20/23 08:53 09/20/23 08:53 09/20/23 08:53 09/20/23 08:53 09/20/23 08:53 Preop Diagnosis: Gerd, hematemesis Operation Date: 09/20/23 09:15 Proposed Procedures p 70587 egd K21.9,K92.0,J04.0(Not Applicable) - Oleg Padilla DO Familial anesthetic complications: None Was Beta Yo taken within 24 hours: Yes Was Clonidine taken within 24 hours: N/A Last intake: Intake Last Liquid Date 09/19/23 Last Liquid Time 21:00 Last Solid Date 09/19/23 Last Solid Time 21:00 Social No alcohol and No tobacco Exam alert, oriented x 3 and regular rate & rhythm Airway Submandibular: within normal limits Mallampati: Class III Dentition: full History/ROS No significant history except as noted Pulmonary Cough CV/HEM Atrial Fibrillation (on eliquis- last taken 09/17) and Hypertension Kidney Stones Hepatic None reported GI Gastroesophageal Reflux Disease Metabolic Diabetes Mellitus and Thyroid Disease [facility] [place] None reported Neuropsych None reported Anesthetic Plan ASA status: 3 Anesthesia: Anesthesia Evaluation and MAC Risk of > 500 ml blood loss (7ml/kg in children): No Medications/Allergies Home Medications Medication Instructions Recorded Confirmed Last Taken Type diphenoxylate-atropine 2.5 1 tab PO TID PRN diarrhea #20 tabs 11/03/22 09/15/23 09/19/23 Rx mg-0.025 mg tablet (Lomotil) insulin aspart U-100 100 unit/mL See Rx Instructions .Route 11/03/22 09/15/23 09/19/23 Rx (3 mL) subcutaneous pen (Novolog .COMPLEX #30 mL FlexPen U-100 Insulin aspart) pen needle, diabetic 31 gauge x #100 ea 11/03/22 09/15/23 09/15/23 Rx 5/16 (TRUEplus Pen Needle) flash glucose sensor (FreeStyle #1 kit 11/25/22 09/15/23 09/15/23 Rx Linda 2 Sensor kit) metoprolol succinate 50 mg 75 mg PO DAILY 03/03/23 09/15/23 09/20/23 History tablet,extended release 24 hr insulin glargine 100 unit/mL (3 See Rx Instructions .Route 05/11/23 09/15/23 09/19/23 Rx mL) subcutaneous pen (Lantus .COMPLEX #63 mL Solostar U-100 Insulin) pantoprazole 40 mg tablet,delayed 40 mg PO BID #60 tabs 06/08/23 09/15/23 09/19/23 Rx release blood sugar diagnostic (Blood #100 ea 06/23/23 09/15/23 09/15/23 Rx Glucose Test strips) lisinopril 20 1 tab PO DAILY #30 tabs 07/04/23 09/15/23 09/19/23 Rx mg-hydrochlorothiazide 12.5 mg tablet mupirocin 2 % topical ointment 1 applic topical BID #22 grams 07/20/23 09/15/23 09/19/23 Rx methimazole 5 mg tablet 5 mg PO DAILY #90 tabs 08/02/23 09/15/23 09/19/23 Rx apixaban 2.5 mg tablet 2.5 mg PO BID #60 tabs 08/24/23 09/15/23 09/17/23 Rx atorvastatin 40 mg tablet 40 mg PO DAILY 09/15/23 09/15/23 09/19/23 History cetirizine 10 mg tablet 10 mg PO DAILY 09/15/23 09/15/23 09/19/23 History febuxostat 40 mg tablet 40 mg PO DAILY 09/15/23 09/15/23 09/19/23 History Allergies Allergy/AdvReac Type Severity Reaction Status Date / Time aspirin Allergy vomit Verified 09/15/23 13:21 codeine Allergy vomit Verified 09/15/23 13:21 liraglutide [From Victoza] Allergy ADR-Vomitin Verified 09/15/23 13:21 g meperidine [From Demerol] Allergy vomit Verified 09/15/23 13:21 Penicillins Allergy hives Verified 09/15/23 13:21 Current Medications Generic Name Dose Route Start Last Admin Trade Name Freq PRN Reason Stop Dose Admin Sodium Chloride 1,000 mls @ 30 mls/hr 09/20/23 08:30 09/20/23 08:49 Sodium Chloride 0.9% IV 09/21/23 08:29 30 mls/hr .Q24H ZEFERINO Administration PFSH Anesthesia Medical History GERD (gastroesophageal reflux disease) Warfarin anticoagulation Environmental and seasonal allergies History of nonmelanoma skin cancer Diabetes Atrial fibrillation History of pacemaker History of staph infection Family History Other Hypertension Social History Smoking and tobacco/nicotine status: never used tobacco/nicotine Second hand smoke exposure: No Alcohol intake: never Substance/Drug Use: never Lives independently: Yes Household members: children Marital status: / Current occupational status: retired Current gender identity: Female Special paz needs: No Female Reproductive History Spontaneous abortions: No Data Anesthesia Cardiac Studies: No Data to Display
[2023-09-20 10:09] VITALS: BP 112/68; PULSE 60; RESP 14; TEMP 36.6; O2SAT 96
[2023-09-20 10:20] VITALS: BP 102/75; PULSE 61; RESP 16; O2SAT 98
[2023-09-20 10:30] VITALS: BP 157/102; PULSE 59; RESP 18; O2SAT 99
--- NOTE | 2023-09-20 16:35 | ANE.PACU2 ---
Inpatient post-anesthesia follow up: Airway intact: Yes Vital signs: Temperature 97.8 F Pulse Rate 59 Respiratory Rate 18 Blood Pressure 157/102 Pulse Oximetry 99 Oxygen Delivery Me thod Room Air Oxygen Flow Rate Fraction of Inspir ed Oxygen Hydration adequate: Yes Nausea and vomiting: No Pain level: 2 Mental status: Baseline
== END 2023-09-20 11:17 | disposition home or self-care (01) ==
PROVIDERS: Anesthesiology; PCP Family Medicine; Visit Provider Surgery
PROC: 0DJ08ZZ Inspection of Upper Intestinal Tract, Via Natural or Artificial Opening Endoscopic (ICD-10-PCS; CPT 43235; principal; 2023-09-20 09:15)
DX: K21.9 Gastro-esophageal reflux disease without esophagitis (principal); K92.0 Hematemesis; K29.50 Unspecified chronic gastritis without bleeding; Z79.4 Long term (current) use of insulin; Z79.01 Long term (current) use of anticoagulants; Z85.828 Personal history of other malignant neoplasm of skin; E11.9 Type 2 diabetes mellitus without complications; I48.91 Unspecified atrial fibrillation; Z95.0 Presence of cardiac pacemaker; I10 Essential (primary) hypertension
CPT/HCPCS: 36416; 43239; 76937; 82962; 84703; 88305; 88312; 88342; J2704; J7030

== ENCOUNTER → 2023-10-04 13:52 | Outpatient (BNVA) | payer MEDICARE, OTHER, SELFPAY | PROVIDERS: PCP Family Medicine; Visit Provider Surgery | DX: Z09 Encounter for follow-up examination after completed treatment for conditions other than malignant neoplasm (principal); Q40.2 Other specified congenital malformations of stomach | CPT/HCPCS: 99213 ==

== ENCOUNTER → 2023-10-12 16:00 | Outpatient (BNVA) | payer MEDICARE, OTHER, SELFPAY | PROVIDERS: PCP Family Medicine; Visit Provider Family Medicine | DX: L82.1 Other seborrheic keratosis (principal); L91.8 Other hypertrophic disorders of the skin; L98.9 Disorder of the skin and subcutaneous tissue, unspecified; I48.19 Other persistent atrial fibrillation; E11.9 Type 2 diabetes mellitus without complications; Z79.4 Long term (current) use of insulin | CPT/HCPCS: 80048; 83036; 84443; 85025 ==

== ENCOUNTER → 2023-11-09 12:42 | Outpatient (BNVA) | payer MEDICARE, OTHER, SELFPAY | PROVIDERS: PCP Family Medicine; Referring Provider Family Medicine; Visit Provider Dermatology | DX: L82.1 Other seborrheic keratosis (principal); L82.0 Inflamed seborrheic keratosis; L81.4 Other melanin hyperpigmentation; Z85.828 Personal history of other malignant neoplasm of skin | CPT/HCPCS: 17110; 99203 ==

== ENCOUNTER → 2024-01-29 14:00 | Outpatient (BNVA) | payer MEDICARE, OTHER, SELFPAY | PROVIDERS: PCP Family Medicine; Visit Provider Family Medicine | DX: E11.9 Type 2 diabetes mellitus without complications (principal); E11.42 Type 2 diabetes mellitus with diabetic polyneuropathy; I10 Essential (primary) hypertension; I48.19 Other persistent atrial fibrillation; Z79.4 Long term (current) use of insulin; I48.91 Unspecified atrial fibrillation; E78.2 Mixed hyperlipidemia; N18.9 Chronic kidney disease, unspecified | CPT/HCPCS: 80048; 83036 ==

== ENCOUNTER → 2024-03-04 12:56 | Outpatient (BNVA) | payer MEDICARE, OTHER, SELFPAY | PROVIDERS: PCP Family Medicine; Visit Provider Specialist | DX: M17.0 Bilateral primary osteoarthritis of knee (principal); Z71.89 Other specified counseling | CPT/HCPCS: 20610; J1100; J2795; J3301 ==

== ENCOUNTER → 2024-03-18 14:30 | Outpatient (BNVA) | payer MEDICARE, OTHER, SELFPAY | PROVIDERS: PCP Family Medicine; Visit Provider Internal Medicine Cardiovascular Disease | DX: I48.19 Other persistent atrial fibrillation (principal); I10 Essential (primary) hypertension; E78.2 Mixed hyperlipidemia; E11.42 Type 2 diabetes mellitus with diabetic polyneuropathy; Z79.4 Long term (current) use of insulin; Z79.01 Long term (current) use of anticoagulants | CPT/HCPCS: 99214 ==

== ENCOUNTER 2024-04-05 19:52 | Emergency (ER) | payer MEDICARE, OTHER, SELFPAY ==
[2024-04-05 19:53] VITALS: BP 148/91; PULSE 69; RESP 16; TEMP 36.7; O2SAT 97
--- NOTE | 2024-04-05 20:03 | XRR_ITS ---
PROCEDURE INFORMATION: Exam: XR Chest Exam date and time: 04/05/2024 8:13 PM Age: 83 years old Clinical indication: Patient HX: Fever; Weakness TECHNIQUE: Imaging protocol: Radiologic exam of the chest. Views: 1 view. COMPARISON: CR XR chest 2V* [id number] 08/17/2021 11:08 AM FINDINGS: Tubes, catheters and devices: Pacer device noted in the right chest wall. Lungs: Unremarkable. No consolidation. Pleural spaces: Unremarkable. No pleural effusion. No pneumothorax. Heart/Mediastinum: Cardiomegaly. Bones/joints: Unremarkable. XR/XR chest 1V portable [id number] IMPRESSION: No acute findings.
--- NOTE | 2024-04-05 20:05 | ECG_ITS ---
[facility] Test Date: 2024-04-05 Pat Name: Mae Rosa Department: Room: Gender: Female Soup Mixer: : 1940 Requested By: Sam Alvarado Order Number: [id number] Efrain MD: Tre Mae M.D. Measurements Intervals [place] Rate: 62 P: 265 VA: 262 QRS: 4 QRSD: 106 T: 21 QT: 408 QTc: 416 Interpretive Statements ELECTRONIC ATRIAL PACEMAKER LOW QRS VOLTAGE IN PRECORDIAL LEADS [QRS DEFLECTION < 1.0 mV IN CHEST LEADS] MODERATE VOLTAGE CRITERIA FOR LVH, CONSIDER NORMAL VARIANT [MEETS CRITERIA IN ONE OF: R(aVL), S(V1), R(V5), R(V5/V6)+S(V1)] ABNORMAL RHYTHM ECG Compared to ECG 05/14/2018 13:32:03 Low QRS voltage now present Electronically Signed On 04-05-2024 22:41:30 CDT by Tre Mae M.D. [id number]
[2024-04-05 20:16] VITALS: BP 163/91; PULSE 65; O2SAT 94
[2024-04-05 20:21] LABS: Basophils # 0.1 10^3/uL (0.0-0.1); Basophils % 0.7 %; Eosinophils # 0.2 10^3/uL (0.0-0.8); Eosinophils % 2.1 %; Hematocrit 35.3 % (36-47); Lymphocytes # 1.9 10^3/uL (0.8-4.8); Lymphocytes % 26.7 %; Mean Corpuscular Volume 90.5 fl (85-98); Mean Platelet Volume 9.9 fL (7.4-10.4); Monocytes # 0.6 10^3/uL (0.2-0.9); Monocytes % 7.9 %; Neutrophils % 62.5 %; Nucleated Red Blood Cells % 0 %; Platelet Count 208 10^3/cmm (157-399); Red Cell Distribution Width 13.1 % (12.1-15.1)
[2024-04-05 20:33] VITALS: BP 150/78; PULSE 68; O2SAT 93
[2024-04-05 20:37] LABS: Add Urine Microscopic? NO; Charge for UA Resulting for Rev
[2024-04-05 20:38] LABS: Troponin(5th) Baseline 36 ng/L (0-10)
--- NOTE | 2024-04-05 20:40 | CTR_ITS ---
PROCEDURE INFORMATION: Exam: CT Head Without Contrast Exam date and time: 04/05/2024 8:48 PM Age: 83 years old Clinical indication: Pain; Headache; Patient HX: Frontal GÓMEZ with fever and generalized weakness. ; Additional info: Frontal headache, fever, weakness TECHNIQUE: Imaging protocol: Computed tomography of the head without contrast. Radiation optimization: All CT scans at this facility use at least one of these dose optimization techniques: automated exposure control; mA and/or kV adjustment per patient size (includes targeted exams where dose is matched to clinical indication); or iterative reconstruction. COMPARISON: CT head wo con* [id number] 05/06/2019 10:56 PM RADIATION DOSE METRICS: Total DLP (mGy-cm): 1039.08 FINDINGS: Brain: No hemorrhage. No edema. Advanced diffuse cerebral atrophy and mild sequela of chronic small vessel ischemic disease. No mass effect. Cerebral ventricles: No ventriculomegaly. Paranasal sinuses: Visualized sinuses are unremarkable. No fluid levels. Mastoid air cells: Visualized mastoid air cells are well aerated. Bones: Unremarkable. No acute fracture. Soft tissues: Unremarkable. CT/CT head wo con* [id number] IMPRESSION: No acute intracranial abnormality.
[2024-04-05 20:42] LABS: Bilirubin Urine Neg (Negative); Blood Urine Neg (Negative); Glucose Urine UA Norm (Normal); Ketones Urine Negative (Negative); Nitrate Urine Negative (Negative); Protein Urine Neg (Negative); Specific Gravity, Urine 1.015 (1.005-1.030); Urine Appearance Clear (CLEAR); Urine Color Yellow (Yellow); pH Urine 5 (5-7)
--- NOTE | 2024-04-05 20:42 | ED_ITS ---
HPI - Weakness 2 General: Chief complaint: Weakness Stated complaint: Fever and light headed Time Seen by Provider: 04/05/24 20:02 History of Present Illness: Patient presents to the ER with complaints of headache in a bandlike distribution just above her eyes, patient had this when she woke up she also had a fever but then she took 2 Exer strength Tylenol and the fever went away but the headache did not go away. Patient does not have a history of headaches and she says she never gets them. Patient denies any mental status changes, vision or hearing changes. No nausea vomiting diarrhea constipation coughs colds etc. Patient did state when she got up from her chair her knees were wobbly and weak but this is resolved and she is back to normal now. Review of Systems 2 General: Reports: 10 or more systems reviewed and unremarkable except in HPI and below PFSH ED 2 PFSH: Medical History History of COVID-19 Ectopic gastric mucosa GERD (gastroesophageal reflux disease) Warfarin anticoagulation Environmental and seasonal allergies History of nonmelanoma skin cancer Diabetes Atrial fibrillation History of pacemaker History of staph infection Surgical History History of esophagogastroduodenoscopy (EGD) Family History Other Hypertension Social History Smoking and tobacco/nicotine status: never used tobacco/nicotine Second hand smoke exposure: No Alcohol intake: never Substance/Drug Use: never Lives independently: Yes Household members: children Marital status: / Current occupational status: retired Current gender identity: Female Special paz needs: No Female Reproductive History: Spontaneous abortions: No Physical Exam 2 Const: COMMON NORMALS: no acute distress, average body habitus, patient oriented x3, no limitations, healthy appearing, alert and well nourished HENMT: COMMON NORMALS: normocephalic, atraumatic, hearing grossly normal bilaterally, external ears normal, Normal external nose present and moist oral mucous membranes HEAD & SCALP: normocephalic and atraumatic NOSE: Normal external nose present EXTERNAL EAR: Yes external ears normal Eye: COMMON NORMALS: Equal, round and reactive pupils present, EOMs intact bilaterally, conjunctivae normal and no scleral icterus CONJUNCTIVA: Yes conjunctivae normal PUPIL: Yes Equal, round and reactive pupils present Neck/C-Spine: COMMON NORMALS: full ROM, no lymphadenopathy, supple, no meningeal signs and no JVD Chest: COMMONS NORMALS: normal inspection of the chest and normal palpation of entire chest wall Resp: COMMON NORMALS: normal respiratory effort, No retractions, No use of accessory muscles and clear to auscultation bilaterally AUSCULTATION: clear to auscultation bilaterally Cardio: COMMON NORMALS: no JVD, regular rate, regular rhythm, S1 normal heart sound present, S2 normal heart sound present, No gallops present (Cardio), No clicks present (Cardio), No murmurs present (Cardio) and No rub (Cardio) R ATE: regular rate RHYTHM: regular rhythm HEART SOUNDS: S1 normal heart sound present and S2 normal heart sound present GI: COMMON NORMALS: Normal to inspection, nondistended, normoactive bowel sounds present, Soft to palpation, non-tender, No hepatosplenomegaly present and no masses PALPATION: Yes Soft to palpation and Yes No hepatosplenomegaly present Neuro: COMMON NORMALS: patient oriented x3 SENSORIUM/ORIENTATION: Yes alert MENINGEAL SIGNS: Yes no meningeal signs Course 2 Vital Signs: Vital signs: Vital Signs Temperature 98.1 F 04/05/24 19:53 Pulse Rate 68 04/05/24 20:33 Respiratory Rate 16 04/05/24 19:53 Blood Pressure 150/78 04/05/24 20:33 Pulse Oximetry 93 04/05/24 20:33 Oxygen Delivery Me thod Room Air 04/05/24 20:33 MDM - Weakness Medical Decision Making Patient was worked up in a standard chest pain fashion along with having a head CT performed, while waiting on time for the second troponin to be drawn as well as a second EKG patient said she was ready to go home and refused the blood draw or the EKG. Patient be discharged home. Differential Diagnosis Unlikely acute myocardial infarction, anemia, hypoglycemia, hypothyroidism, rhabdomyolysis, sepsis or dehydration Medical Records I reviewed the patient's medical records. Lab Data I reviewed the patient's lab results. 04/05/24 20:14 04/05/24 20:14 Radiology Impressions Chest X-Ray 04/05/24 20:03 IMPRESSION: No acute findings. Head CT 04/05/24 20:40 IMPRESSION: No acute intracranial abnormality. Laboratory Results WBC 7.20 10^3/uL (3.29-11.43) 04/05/24 20:14 RBC 3.90 10^6/uL (3.85-5.65) 04/05/24 20:14 Hgb 11.30 g/dL (11.27-16.99) 04/05/24 20:14 Hct 35.3 % (36-47) L 04/05/24 20:14 MCV 90.5 fl (85-98) 04/05/24 20:14 MCH 29.0 pg (27-33) 04/05/24 20:14 MCHC 32.0 g/dL (30-55) 04/05/24 20:14 RDW 13.1 % (12.1-15.1) 04/05/24 20:14 Plt Count 208 10^3/cmm (157-399) 04/05/24 20:14 MPV 9.9 fL (7.4-10.4) 04/05/24 20:14 Neut % (Auto) 62.5 % 04/05/24 20:14 Lymph % (Auto) 26.7 % 04/05/24 20:14 [place] % (Auto) 7.9 % 04/05/24 20:14 Eos % (Auto) 2.1 % 04/05/24 20:14 Baso % (Auto) 0.7 % 04/05/24 20:14 Neut # (Auto) 4.50 10^3/uL (1.8-7.7) 04/05/24 20:14 Lymph # (Auto) 1.9 10^3/uL (0.8-4.8) 04/05/24 20:14 [place] # (Auto) 0.6 10^3/uL (0.2-0.9) 04/05/24 20:14 Eos # (Auto) 0.2 10^3/uL (0.0-0.8) 04/05/24 20:14 Baso # (Auto) 0.1 10^3/uL (0.0-0.1) 04/05/24 20:14 Nucleated RBC % (auto) 0 % 04/05/24 20:14 Nucleated RBCs # 0.0 /100WBC 04/05/24 20:14 PT 13.40 SECONDS (12.1-14.9) 04/05/24 20:14 INR 0.99 (0.8-1.2) 04/05/24 20:14 Sodium 138 mmol/L (136-145) 04/05/24 20:14 Potassium 4.2 mmol/L (3.5-5.1) 04/05/24 20:14 Chloride 104 mmol/L (98-107) 04/05/24 20:14 Carbon Dioxide 28 mmol/L (22-29) 04/05/24 20:14 Anion Gap 10.2 (5-19) 04/05/24 20:14 BUN 32 mg/dL (8-23) H 04/05/24 20:14 Creatinine 1.3 mg/dL (0.5-0.9) H 04/05/24 20:14 GFR Calculation Not Reportable 04/05/24 20:14 Glucose 137 mg/dL (65-115) H 04/05/24 20:14 Calculated Osmolality 295 mOsm/kg (285-295) 04/05/24 20:14 Calcium 9.7 mg/dL (8.5-10.5) 04/05/24 20:14 Magnesium 1.7 mg/dL (1.7-2.3) 04/05/24 20:14 Total Bilirubin 0.3 mg/dL (0.15-1.2) 04/05/24 20:14 AST 13 U/L (0-32) 04/05/24 20:14 ALT 13 U/L (0-33) 04/05/24 20:14 Alkaline Phosphatase 96 U/L (35-105) 04/05/24 20:14 Troponin T Baseline 36 ng/L (0-10) H 04/05/24 20:14 Total Protein 6.4 g/dL (6.6-8.7) L 04/05/24 20:14 Albumin 3.8 g/dL (3.5-5.2) 04/05/24 20:14 Globulin 2.6 g/dL (1.3-4.6) 04/05/24 20:14 Procalcitonin 0.04 ng/mL (0-0.5) 04/05/24 20:14 Urine Color Yellow (Yellow) 04/05/24 20:24 Urine Appearance Clear (CLEAR) 04/05/24 20:24 Urine pH 5 (5-7) 04/05/24 20:24 Ur Specific Gordon 1.015 (1.005-1.030) 04/05/24 20:24 Urine Protein Neg (Negative) 04/05/24 20:24 Urine Glucose (UA) Norm (Normal) 04/05/24 20:24 Urine Ketones Negative (Negative) 04/05/24 20:24 Urine Blood Neg (Negative) 04/05/24 20:24 Urine Nitrate Negative (Negative) 04/05/24 20:24 Urine Bilirubin Neg (Negative) 04/05/24 20:24 Urine Urobilinogen Neg mg/dL (Negative) 04/05/24 20:24 Ur Leukocyte Esterase Negative (Negative) 04/05/24 20:24 All radiology interpretation(s) finalized by discharge Discharge Plan Discharge Patient Disposition: Home Clinical Impression: Headache Qualifiers: Headache type: unspecified Headache chronicity pattern: acute headache I ntractability: not intractable Qualified Code(s): R51.9 - Headache, unspecified Condition: Stable Prescriptions: No Action (DME) pen needle, diabetic [TRUEplus Pen Needle] 31 gauge x 5/16 needle See Rx Instructions .ROUTE .COMPLEX Qty: 100 11RF Dose Instruction: USE THREE TIMES DAILY Rx Instructions: USE FIVE TIMES DAILY pantoprazole 40 mg tablet,delayed release (DR/EC) 40 mg PO DAILY 30 Days Qty: 30 11RF mupirocin 2 % ointment 1 applic topical DAILY Qty: 22 0RF atorvastatin 40 mg tablet 40 mg PO DAILY Qty: 90 3RF Rx Instructions: TAKE ONE TABLET BY MOUTH EVERY DAY insulin aspart U-100 [Novolog FlexPen U-100 Insulin] 100 unit/mL (3 mL) insulin pen See Rx Instructions .ROUTE .COMPLEX Qty: 30 2RF Dose Instruction: inject using sliding scale THREE TIMES DAILY UP TO 100 units DAILY Rx Instructions: inject using sliding scale THREE TIMES DAILY UP TO 100 units DAILY lisinopril-hydrochlorothiazide 20-12.5 mg tablet 1 tab PO DAILY Qty: 90 3RF methimazole 5 mg tablet 5 mg PO DAILY Qty: 90 1RF Rx Instructions: Take one tablet by mouth daily. metoprolol succinate 50 mg tablet extended release 24 hr 75 mg PO DAILY Qty: 90 3RF Lantus Solostar U-100 Insulin 100 unit/mL (3 mL) insulin pen See Rx Instructions .ROUTE .COMPLEX Qty: 63 2RF Dose Instruction: inject 35 units SUBCUTANEOUSLY TWICE DAILY Rx Instructions: Administer 30 units sub-q daily. apixaban 2.5 mg tablet 2.5 mg PO BID Qty: 60 11RF Hold Instructions: Resume on 09/22/23. (DME) FreeStyle Linda 2 Sensor Kit See Rx Instructions .ROUTE .COMPLEX Qty: 1 0RF Dose Instruction: DIRECTED Rx Instructions: DIRECTED (DME) Blood Glucose Test Strip See Rx Instructions .ROUTE .MEDSUPPLY Qty: 100 2RF Rx Instructions: As directed; to test TID diphenoxylate-atropine [Lomotil] 2.5-0.025 mg tablet 1 tab PO TID PRN (Reason: diarrhea) Qty: 20 0RF cetirizine 10 mg tablet 10 mg PO DAILY Qty: 30 3RF Rx Instructions: TAKE ONE TABLET BY MOUTH EVERY DAY febuxostat 40 mg tablet See Rx Instructions .ROUTE .COMPLEX Qty: 30 0RF Dose Instruction: TAKE ONE TABLET BY MOUTH EVERY DAY Rx Instructions: TAKE ONE TABLET BY MOUTH EVERY DAY Discharge Orders: Discharge ED (Routine); Ordered 04/05/24 Ordered By: Sam Alvarado Referrals: Diego Saucedo DO [Primary Care Provider] - 1 week Patient Instructions: Acute Headache (ED) Activity Restrictions/Additional Instructions: The workup we were able to perform including blood work did not show any acute causes for your symptoms. However you refused having a second troponin, second EKG, and wanted to leave before your respiratory panel came back therefore limiting our ability to fully diagnose your situation. If your symptoms worsen please feel free to return to the ER. Otherwise follow-up with your family practice physician within the next 7 to 10 days. Coding Level of Care Code ED Rn Emergency for Maria Luisa Ingram
[2024-04-05 20:43] LABS: Leukocyte Esterase Urine Negative (Negative); Urobilinogen Urine Neg (Negative)
[2024-04-05 20:50] LABS: Alanine Aminotransferase 13 U/L (0-33); Albumin Level 3.8 g/dL (3.5-5.2); Alkaline Phosphatase 96 U/L (35-105); Anion Gap 10.2 (5-19); Aspartate Amino Transferase 13 U/L (0-32); Blood Urea Nitrogen 32 mg/dL (8-23); Calcium 9.7 mg/dL (8.5-10.5); Carbon Dioxide 28 mmol/L (22-29); Chloride 104 mmol/L (98-107); Creatinine Clr Calc Pharmacy 31.3259; Globulin 2.6 g/dL (1.3-4.6); Glucose 137 mg/dL (65-115); Magnesium 1.7 mg/dL (1.7-2.3); Osmolality Calculated 295 mOsm/kg (285-295); Potassium 4.2 mmol/L (3.5-5.1); Sodium 138 mmol/L (136-145); Total Bilirubin 0.3 mg/dL (0.15-1.2); Total Protein 6.4 g/dL (6.6-8.7)
[2024-04-05 20:52] LABS: Procalcitonin 0.04 ng/mL (0-0.5)
[2024-04-05 20:53] LABS: INR 0.99 (0.8-1.2)
[2024-04-05 22:08] LABS: Adenovirus Not Detected (NOT DETECT); Chlamydia Pneumoniae Not Detected (NOT DETECT); Coronavirus 229E,HKU1,NL63,OC4 Not Detected (NOT DETECT); Human Metapneumovirus Not Detected (NOT DETECT); Human Rhinovirus/Enterovirus Not Detected (NOT DETECT); Influenza A Not Detected (NOT DETECT); Influenza A H1 Not Detected (NOT DETECT); Influenza A H1-2009 Not Detected (NOT DETECT); Influenza A H3 Not Detected (NOT DETECT); Influenza B Not Detected (NOT DETECT); Mycoplasma Pneumoniae Not Detected (NOT DETECT); Parainfluenza Virus Type 1 Not Detected (NOT DETECT); Parainfluenza Virus Type 2 Not Detected (NOT DETECT); Parainfluenza Virus Type 3 Not Detected (NOT DETECT); Parainfluenza Virus Type 4 Not Detected (NOT DETECT); Respiratory Syncytial Virus A Not Detected (NOT DETECT); Respiratory Syncytial Virus B Not Detected (NOT DETECT); SARS-COV-2 Not Detected (NOT DETECT)
== END 2024-04-05 22:22 | disposition home or self-care (01) ==
PROVIDERS: Emergency Provider Emergency Medicine; PCP Family Medicine
DX: R51.9 Headache, unspecified (principal); Z79.4 Long term (current) use of insulin; E11.9 Type 2 diabetes mellitus without complications; Z95.0 Presence of cardiac pacemaker
CPT/HCPCS: 36415; 70450; 71045; 80053; 81003; 83735; 84145; 84484; 85025; 85610; 87486; 87581; 87633; 93005; 99285

== ENCOUNTER → 2024-06-05 11:35 | Outpatient (BNVA) | payer MEDICARE, OTHER, SELFPAY | PROVIDERS: PCP Nurse Practitioner Family; Visit Provider Nurse Practitioner Family | DX: E11.42 Type 2 diabetes mellitus with diabetic polyneuropathy (principal) | CPT/HCPCS: 80053; 80061; 82607; 83036; 84439; 84443; 85025 ==

== ENCOUNTER → 2024-06-07 10:43 | Outpatient (BNVA) | payer MEDICARE, OTHER, SELFPAY | PROVIDERS: PCP Nurse Practitioner Family; Visit Provider Specialist | DX: M17.0 Bilateral primary osteoarthritis of knee (principal); Z71.89 Other specified counseling | CPT/HCPCS: 20610 ==

== ENCOUNTER → 2024-06-10 15:11 | Outpatient (BNVA) | payer MEDICARE, OTHER, SELFPAY | PROVIDERS: PCP Nurse Practitioner Family; Visit Provider Nurse Practitioner Family | DX: L82.0 Inflamed seborrheic keratosis (principal); L72.0 Epidermal cyst; D22.5 Melanocytic nevi of trunk; L81.4 Other melanin hyperpigmentation; D23.39 Other benign neoplasm of skin of other parts of face; Z85.828 Personal history of other malignant neoplasm of skin | CPT/HCPCS: 17110; 99213 ==

== ENCOUNTER 2024-07-04 21:06 | Emergency (ER) | payer MEDICARE, OTHER, SELFPAY ==
[2024-07-04 21:16] VITALS: BP 117/65; PULSE 65; RESP 18; TEMP 36.8; O2SAT 95; BMI 29.2
--- NOTE | 2024-07-04 21:43 | XRR_ITS ---
PROCEDURE INFORMATION: Exam: XR Chest Exam date and time: 07/04/2024 10:01 PM Age: 83 years old Clinical indication: Injury or trauma; Fall; Blunt trauma (contusions or hematomas); Additional info: Cough TECHNIQUE: Imaging protocol: Radiologic exam of the chest. Views: 2 views. COMPARISON: CR (CHEST, ) 04/05/2024 8:13 PM FINDINGS: Tubes, catheters and devices: Right subclavian transvenous atrioventricular pacemaker is in expected position. Lungs: Clear, symmetrically inflated lungs. Pleural spaces: No pleural effusion. No pneumothorax. Heart/Mediastinum: Stable moderate cardiomegaly. Bones/joints: Subjective bony demineralization. No displaced fractures are evident. XR/XR chest 2V* [id number] IMPRESSION: 1. Clear lungs. Stable moderate cardiomegaly. 2. No displaced rib fractures are seen, but there is limited plain film sensitivity for nondisplaced fractures. Regardless, there is no evidence of pneumothorax, pulmonary parenchymal contusion, or pleural effusion.
[2024-07-04 22:54] LABS: Basophils % 0.6 %; Eosinophils # 0.1 10^3/uL (0.0-0.8); Eosinophils % 1.8 %; Hematocrit 35.6 % (36-47); Lymphocytes # 1.7 10^3/uL (0.8-4.8); Mean Corpuscular HGB Conc 31.5 g/dL (30-55); Mean Corpuscular Hemoglobin 28.6 pg (27-33); Mean Platelet Volume 9.7 fL (7.4-10.4); Monocytes # 0.6 10^3/uL (0.2-0.9); Monocytes % 8.5 %; Neutrophils # 4.71 10^3/uL (1.8-7.7); Neutrophils % 65.7 %; Nucleated Red Blood Cells % 0 %; Platelet Count 209 10^3/cmm (157-399); Red Blood Count 3.91 10^6/uL (3.85-5.65); Red Cell Distribution Width 12.4 % (12.1-15.1); White Blood Count 7.17 10^3/uL (3.29-11.43)
--- NOTE | 2024-07-04 23:08 | W.ED.GENADLT ---
HPI - General Adult General: Chief complaint: General Medical Stated complaint: fall, fever, cough Time Seen by Provider: 07/04/24 22:37 History of Present Illness: 83-year-old female who presents emergency room with cough, subjective fevers at home. She had a fall couple of days ago. Now she hurts everywhere. Nothing focal. She has some mild bruising on her right hand. Otherwise she says she just hurts everywhere. Vitals are normal. She had no head injury. No altered mental status. No focal motor deficits. Related Data Previous Rx's Medication Instructions Recorded pen needle, diabetic 31 gauge x #100 ea 11/03/2201/31 (TRUEplus Pen Needle) flash glucose sensor (FreeStyle #1 kit 11/25/22 Linda 2 Sensor kit) pantoprazole 40 mg tablet,delayed 40 mg PO DAILY 30 days #30 tabs 10/04/23 release cetirizine 10 mg tablet 10 mg PO DAILY #30 tabs 04/29/24 metoprolol succinate 50 mg See Rx Instructions .Route 05/02/24 tablet,extended release 24 hr .COMPLEX #90 tabs apixaban 2.5 mg tablet 2.5 mg PO BID #60 tabs 05/17/24 atorvastatin 40 mg tablet 40 mg PO DAILY #90 tabs 05/17/24 blood sugar diagnostic (Blood #100 ea 05/17/24 Glucose Test strips) insulin aspart U-100 100 unit/mL See Rx Instructions .Route 05/17/24 (3 mL) subcutaneous pen (Novolog .COMPLEX #30 mL FlexPen U-100 Insulin aspart) lisinopril 20 1 tab PO DAILY #90 tabs 05/17/24 mg-hydrochlorothiazide 12.5 mg tablet methimazole 5 mg tablet See Rx Instructions .Route 05/17/24 .COMPLEX #135 tabs mupirocin 2 % topical ointment 1 applic topical DAILY #22 grams 05/17/24 insulin glargine 100 unit/mL (3 See Rx Instructions .Route 06/19/24 mL) subcutaneous pen (Lantus .COMPLEX #63 mL Solostar U-100 Insulin) febuxostat 40 mg tablet See Rx Instructions .Route 07/01/24 .COMPLEX #30 tabs azithromycin 250 mg tablet See Rx Instructions PO .COMPLEX #6 07/04/24 (Zithromax Z-Nishant) tabs Allergies Allergy/AdvReac Type Severity Reaction Status Date / Time aspirin Allergy vomit Verified 06/07/24 11:19 codeine Allergy vomit Verified 06/07/24 11:19 liraglutide [From Victoza] Allergy ADR-Vomitin Verified 06/07/24 11:19 g meperidine [From Demerol] Allergy vomit Verified 06/07/24 11:19 Penicillins Allergy hives Verified 06/07/24 11:19 Review of Systems Narrative: Constitutional symptoms: Negative except as documented in HPI. Skin symptoms: Negative except as documented in HPI. Eye symptoms: Negative except as documented in HPI. ENMT symptoms: Negative except as documented in HPI. Respiratory symptoms: Negative except as documented in HPI. Cardiovascular symptoms: Negative except as documented in HPI. Gastrointestinal symptoms: Negative except as documented in HPI. Genitourinary symptoms: Negative except as documented in HPI. Musculoskeletal symptoms: Negative except as documented in HPI. Neurologic symptoms: Negative except as documented in HPI. Psychiatric symptoms: Negative except as documented in HPI. Endocrine symptoms: Negative except as documented in HPI. PFSH ED PFSH: Medical History History of COVID-19 Ectopic gastric mucosa GERD (gastroesophageal reflux disease) Warfarin anticoagulation Environmental and seasonal allergies History of nonmelanoma skin cancer Diabetes Atrial fibrillation History of pacemaker History of staph infection Surgical History History of esophagogastroduodenoscopy (EGD) Family History Other Hypertension Social History Smoking and tobacco/nicotine status: never used tobacco/nicotine Second hand smoke exposure: No Alcohol intake: never Substance/Drug Use: never Lives independently: Yes Household members: children Marital status: / Current occupational status: retired Current gender identity: Female Special paz needs: No Female Reproductive History: Spontaneous abortions: No Physical Exam Narrative: EXAM NARRATIVE: General: Alert, no acute distress. Skin: Warm, dry. Head: Normocephalic, atraumatic. Neck: Supple, trachea midline. Eye: Extraocular movements are intact. Ears, nose, mouth and throat: mucosa moist. Cardiovascular: Regular, Normal peripheral perfusion. Respiratory: Lungs are clear to auscultation, respirations are non-labored, breath sounds are equal, Symmetrical chest wall expansion. Gastrointestinal: Soft, Nontender, Non distended Musculoskeletal: Normal ROM, no deformity. Neurological: Alert and oriented, No focal neurological deficit observed. Psychiatric: Cooperative, appropriate mood & affect. Course Vital Signs: Vital signs: Vital Signs Temperature 98.3 F 07/04/24 21:16 Pulse Rate 65 07/04/24 21:16 Respiratory Rate 18 07/04/24 21:16 Blood Pressure 117/65 07/04/24 21:16 Pulse Oximetry 95 07/04/24 21:16 Oxygen Delivery Me thod Room Air 07/04/24 21:16 MDM - General Adult Medical Decision Making Differential diagnosis for patient with shortness of breath includes but is not limited to and based on the above HPI, review of systems and physical exam: Pneumonia. Bronchitis. Asthma or COPD with acute exacerbation. Acute coronary syndrome / [place]. Pulmonary embolism. Anxiety. Congestive heart failure. Viral infections including influenza and Covid-19. Atrial fibrillation. Anxiety. Pleural effusion. Pneumothorax. Orders placed to evaluate differential diagnosis based on the above differential, HPI and physical exam Lab Review: Laboratory results were reviewed and interpreted by myself the emergency room physician. Lab work is unremarkable. Flu and COVID are pending but patient demands discharge. When I let her go home she can call back for her results. Chest x-ray: No acute process. No infiltrate. No pneumothorax. This was reviewed and interpreted by myself the ER physician. I reviewed the patient's medical record. Re patient remained stable. No increased work of breathing. No altered mental status. No focal motor deficits. Examination: Assessment and plan: Upper respiratory infection Fall - Discharged home - Discussed plan with patient. Answered any questions. - Evaluation and treatment of this problem were appropriate in the emergency setting. Lab Data 07/04/24 22:43 07/04/24 22:43 Radiology Impressions Chest X-Ray 07/04/24 21:43 IMPRESSION: 1. Clear lungs. Stable moderate cardiomegaly. 2. No displaced rib fractures are seen, but there is limited plain film sensitivity for nondisplaced fractures. Regardless, there is no evidence of pneumothorax, pulmonary parenchymal contusion, or pleural effusion. Laboratory Results WBC 7.17 10^3/uL (3.29-11.43) 07/04/24 22:43 RBC 3.91 10^6/uL (3.85-5.65) 07/04/24 22:43 Hgb 11.20 g/dL (11.27-16.99) L 07/04/24 22:43 Hct 35.6 % (36-47) L 07/04/24 22:43 MCV 91.0 fl (85-98) 07/04/24 22:43 MCH 28.6 pg (27-33) 07/04/24 22:43 MCHC 31.5 g/dL (30-55) 07/04/24 22:43 RDW 12.4 % (12.1-15.1) 07/04/24 22:43 Plt Count 209 10^3/cmm (157-399) 07/04/24 22:43 MPV 9.7 fL (7.4-10.4) 07/04/24 22:43 Neut % (Auto) 65.7 % 07/04/24 22:43 Lymph % (Auto) 23.0 % 07/04/24 22:43 [place] % (Auto) 8.5 % 07/04/24 22:43 Eos % (Auto) 1.8 % 07/04/24 22:43 Baso % (Auto) 0.6 % 07/04/24 22:43 Neut # (Auto) 4.71 10^3/uL (1.8-7.7) 07/04/24 22:43 Lymph # (Auto) 1.7 10^3/uL (0.8-4.8) 07/04/24 22:43 [place] # (Auto) 0.6 10^3/uL (0.2-0.9) 07/04/24 22:43 Eos # (Auto) 0.1 10^3/uL (0.0-0.8) 07/04/24 22:43 Baso # (Auto) 0.0 10^3/uL (0.0-0.1) 07/04/24 22:43 Nucleated RBC % (auto) 0 % 07/04/24 22:43 Nucleated RBCs # 0.0 /100WBC 07/04/24 22:43 Sodium 138 mmol/L (136-145) 10/17/24 22:43 Potassium 4.3 mmol/L (3.5-5.1) 07/04/24 22:43 Chloride 102 mmol/L (98-107) 07/04/24 22:43 Carbon Dioxide 27 mmol/L (22-29) 07/04/24 22:43 Anion Gap 13.3 (5-19) 07/04/24 22:43 BUN 32 mg/dL (8-23) H 07/04/24 22:43 Creatinine 1.2 mg/dL (0.5-0.9) H 07/04/24 22:43 GFR Calculation Not Reportable 07/04/24 22:43 Glucose 304 mg/dL (65-115) H 07/04/24 22:43 Calculated Osmolality 304 mOsm/kg (285-295) H 07/04/24 22:43 Lactic Acid 1.0 mmol/L (0.5-2.2) 07/04/24 22:43 Calcium 8.7 mg/dL (8.5-10.5) 07/04/24 22:43 Total Bilirubin 0.3 mg/dL (0.15-1.2) 07/04/24 22:43 AST 15 U/L (0-32) 07/04/24 22:43 ALT 12 U/L (0-33) 07/04/24 22:43 Alkaline Phosphatase 107 U/L (35-105) H 07/04/24 22:43 C-Reactive Protein 5.1 mg/L (0.0-4.9) H 07/04/24 22:43 Total Protein 6.4 g/dL (6.6-8.7) L 07/04/24 22:43 Albumin 3.7 g/dL (3.5-5.2) 07/04/24 22:43 Globulin 2.7 g/dL (1.3-4.6) 07/04/24 22:43 All radiology interpretation(s) finalized by discharge Discharge Plan Discharge Patient Disposition: Home Clinical Impression: Acute upper respiratory infection, Fall Condition: Stable Prescriptions: New azithromycin [Zithromax Z-Nishant] 250 mg tablet See Rx Instructions .ROUTE .COMPLEX Qty: 6 0RF Rx Instructions: For 250 mg dose pack: take 500 mg today (day 1), then 250 mg for 4 days (days 2-5) No Action (DME) pen needle, diabetic [TRUEplus Pen Needle] 31 gauge x 5/16 needle See Rx Instructions .ROUTE .COMPLEX Qty: 100 11RF Dose Instruction: USE THREE TIMES DAILY Rx Instructions: USE FIVE TIMES DAILY pantoprazole 40 mg tablet,delayed release (DR/EC) 40 mg PO DAILY 30 Days Qty: 30 11RF (DME) FreeStyle Linda 2 Sensor Kit See Rx Instructions .ROUTE .COMPLEX Qty: 1 0RF Dose Instruction: DIRECTED Rx Instructions: DIRECTED cetirizine 10 mg tablet 10 mg PO DAILY Qty: 30 3RF Rx Instructions: TAKE ONE TABLET BY MOUTH EVERY DAY metoprolol succinate 50 mg tablet extended release 24 hr See Rx Instructions .ROUTE .COMPLEX Qty: 90 3RF Dose Instruction: TAKE 1 AND 1/2 TABLETS BY MOUTH DAILY Rx Instructions: TAKE 1 AND 1/2 TABLETS BY MOUTH DAILY apixaban 2.5 mg tablet 2.5 mg PO BID Qty: 60 2RF Hold Instructions: Resume on 09/22/23. atorvastatin 40 mg tablet 40 mg PO DAILY Qty: 90 0RF Rx Instructions: TAKE ONE TABLET BY MOUTH EVERY DAY (DME) Blood Glucose Test Strip See Rx Instructions .ROUTE .MEDSUPPLY Qty: 100 2RF Rx Instructions: As directed; to test TID insulin aspart U-100 [Novolog FlexPen U-100 Insulin] 100 unit/mL (3 mL) insulin pen See Rx Instructions .ROUTE .COMPLEX Qty: 30 2RF Dose Instruction: inject using sliding scale THREE TIMES DAILY UP TO 100 units DAILY Rx Instructions: inject using sliding scale THREE TIMES DAILY UP TO 100 units DAILY lisinopril-hydrochlorothiazide 20-12.5 mg tablet 1 tab PO DAILY Qty: 90 0RF methimazole 5 mg tablet See Rx Instructions .ROUTE .COMPLEX Qty: 135 0RF Dose Instruction: TAKE ONE TABLET BY MOUTH DAILY Rx Instructions: TAKE ONE TABLET BY MOUTH DAILY mupirocin 2 % ointment 1 applic topical DAILY Qty: 22 0RF Lantus Solostar U-100 Insulin 100 unit/mL (3 mL) insulin pen See Rx Instructions .ROUTE .COMPLEX Qty: 63 2RF Dose Instruction: inject 35 units SUBCUTANEOUSLY TWICE DAILY Rx Instructions: Administer 20 units sub-q twice daily. febuxostat 40 mg tablet See Rx Instructions .ROUTE .COMPLEX Qty: 30 5RF Dose Instruction: TAKE ONE TABLET BY MOUTH EVERY DAY Rx Instructions: TAKE ONE TABLET BY MOUTH EVERY DAY Discharge Orders: Discharge ED (Routine); Ordered 07/04/24 Ordered By: Sarah Butler Referrals: Esme Ramires FNP [Primary Care Provider] - Discharge Diet: Usual diet Discharge Activity: Increase activity as tolerated Patient Instructions: Fall Prevention for Older Adults (ED), Upper Respiratory Infection (ED) Activity Restrictions/Additional Instructions: Thank you for choosing [facility] for your healthcare needs today. Please realize this is an emergency room and that we are providing you with a medical screening exam and this may not be complete and all inclusive of all the testing and or work up that you may need to determine your ailment or severity of your illness. You have been screened and evaluated and felt safe for discharge. Health conditions do change or evolve sometimes and as such it is important that you follow up with your Primary Doctor to be re checked, 3-5 days is a general good time frame for follow up. You are always welcome to return to the ED for re assessment if your symptoms are worsening or you have new concerns Coding Level of Care Code ED Rn Document Improvement Specialist for Maria Luisa Ingram
[2024-07-04 23:13] LABS: Alanine Aminotransferase 12 U/L (0-33); Albumin Level 3.7 g/dL (3.5-5.2); Alkaline Phosphatase 107 U/L (35-105); Anion Gap 13.3 (5-19); Aspartate Amino Transferase 15 U/L (0-32); Blood Urea Nitrogen 32 mg/dL (8-23); C Reactive Protein 5.1 mg/L (0.0-4.9); Calcium 8.7 mg/dL (8.5-10.5); Carbon Dioxide 27 mmol/L (22-29); Chloride 102 mmol/L (98-107); Creatinine Clr Calc Pharmacy 35.7837; Globulin 2.7 g/dL (1.3-4.6); Glucose 304 mg/dL (65-115); Osmolality Calculated 304 mOsm/kg (285-295); Potassium 4.3 mmol/L (3.5-5.1); Sodium 138 mmol/L (136-145); Total Bilirubin 0.3 mg/dL (0.15-1.2); Total Protein 6.4 g/dL (6.6-8.7)
[2024-07-05 00:19] LABS: Covid PCR NEGATIVE (Negative); Influenza A NEGATIVE (Negative); Influenza B NEGATIVE (Negative); Respiratory Syncytial Virus Ce NEGATIVE (Negative)
== END 2024-07-04 23:50 | disposition home or self-care (01) ==
PROVIDERS: Nurse Practitioner Family; Emergency Provider Emergency Medicine; PCP Nurse Practitioner Family
DX: J06.9 Acute upper respiratory infection, unspecified (principal); Z79.4 Long term (current) use of insulin; E11.9 Type 2 diabetes mellitus without complications; Z95.0 Presence of cardiac pacemaker; Z11.52 Encounter for screening for COVID-19
CPT/HCPCS: 0241U; 36415; 71046; 80053; 83605; 85025; 86140; 87040; 99284

== ENCOUNTER 2024-07-17 15:43 | Outpatient (CLI) | payer MEDICARE, OTHER, SELFPAY ==
--- NOTE | 2024-07-17 15:46 | XR_ITS ---
WS: [id number] Chest 2 views, 07/17/2024 Clinical Data: R05.9 - Cough, unspecified Comparison: Portable chest 2 views, 07/04/2024 Findings: No nodules, masses or effusions are seen. The heart is slightly enlarged. The pulmonary vas cularity is not increased. No pneumonia or pneumothorax is seen. There is a cardiac pacemaker with th e generator overlying the right upper chest unchanged. The aortic arch shows tortuosity. There are ch olecystectomy clips in the right upper quadrant. XR/XR chest 2V* [id number] Impression: Atherosclerosis, cardiomegaly and permanent cardiac pacemaker.
== END 2024-07-17 15:44 | disposition home or self-care (01) ==
LOC: RAD 15:45
PROVIDERS: PCP Nurse Practitioner Family; Visit Provider Nurse Practitioner Family
DX: R05.9 Cough, unspecified (principal); I51.7 Cardiomegaly; Z95.0 Presence of cardiac pacemaker; I70.90 Unspecified atherosclerosis
CPT/HCPCS: 71046

== ENCOUNTER → 2024-09-06 11:15 | Outpatient (BNVA) | payer MEDICARE, OTHER, SELFPAY | PROVIDERS: PCP Nurse Practitioner Family; Visit Provider Specialist | DX: M25.561 Pain in right knee (principal); M25.562 Pain in left knee; M17.0 Bilateral primary osteoarthritis of knee; Z71.89 Other specified counseling | CPT/HCPCS: 20610; J1100; J2795; J3301 ==

== ENCOUNTER 2024-10-07 15:25 | Outpatient (CLI) | payer MEDICARE, OTHER, SELFPAY ==
[2024-10-07 16:04] LABS: Basophils # 0.1 10^3/uL (0.0-0.1); Basophils % 0.8 %; Eosinophils # 0.1 10^3/uL (0.0-0.8); Eosinophils % 1.2 %; Hematocrit 39.9 % (36-47); Lymphocytes # 2.1 10^3/uL (0.8-4.8); Lymphocytes % 24.7 %; Mean Corpuscular HGB Conc 31.3 g/dL (30-55); Mean Corpuscular Hemoglobin 28.7 pg (27-33); Mean Corpuscular Volume 91.5 fl (85-98); Mean Platelet Volume 9.8 fL (7.4-10.4); Monocytes # 0.6 10^3/uL (0.2-0.9); Monocytes % 6.4 %; Neutrophils % 66.7 %; Nucleated Red Blood Cells % 0 %; Platelet Count 252 10^3/cmm (157-399); Red Blood Count 4.36 10^6/uL (3.85-5.65); Red Cell Distribution Width 12.5 % (12.1-15.1); White Blood Count 8.55 10^3/uL (3.29-11.43)
[2024-10-07 16:19] LABS: Estmated Average Glucose 240
[2024-10-07 16:45] LABS: Anion Gap 11.8 (5-19); Blood Urea Nitrogen 25 mg/dL (8-23); Carbon Dioxide 30 mmol/L (22-29); Chloride 103 mmol/L (98-107); Glucose 216 mg/dL (65-115); Osmolality Calculated 301 mOsm/kg (285-295); Potassium 4.8 mmol/L (3.5-5.1); Sodium 140 mmol/L (136-145)
== END 2024-10-07 15:26 | disposition home or self-care (01) ==
LOC: LAB 15:27
PROVIDERS: PCP Nurse Practitioner Family; Visit Provider Ophthalmology
DX: E11.9 Type 2 diabetes mellitus without complications (principal)
CPT/HCPCS: 36415; 80048; 83036; 85025

== ENCOUNTER → 2024-11-11 12:54 | Outpatient (BNVA) | payer MEDICARE, OTHER, SELFPAY | PROVIDERS: PCP Nurse Practitioner Family; Visit Provider Nurse Practitioner Family | DX: L72.0 Epidermal cyst (principal); D23.39 Other benign neoplasm of skin of other parts of face; H02.105 Unspecified ectropion of left lower eyelid; D18.01 Hemangioma of skin and subcutaneous tissue; L81.4 Other melanin hyperpigmentation; Z08 Encounter for follow-up examination after completed treatment for malignant neoplasm; Z85.828 Personal history of other malignant neoplasm of skin; L82.0 Inflamed seborrheic keratosis; R20.8 Other disturbances of skin sensation; L53.8 Other specified erythematous conditions | CPT/HCPCS: 17110; 99213 ==

== ENCOUNTER → 2024-12-13 11:09 | Outpatient (BNVA) | payer MEDICARE, OTHER, SELFPAY | PROVIDERS: PCP Nurse Practitioner Family; Visit Provider Specialist | DX: M17.0 Bilateral primary osteoarthritis of knee (principal) | CPT/HCPCS: 20610; J1100; J2795; J3301; J9999 ==

== ENCOUNTER 2024-12-23 04:10 | Emergency (ER) | payer OTHER, MEDICARE, SELFPAY ==
[2024-12-23 04:27] VITALS: BP 150/78; PULSE 80; RESP 18; TEMP 37.2; O2SAT 96; BMI 29.9
[2024-12-23 04:49] LABS: Bacteria Urine None Seen /hpf; Hyaline Casts Urine 0-4 /lpf; RBC Urine 51-100 /hpf (0-2); Squamous Epithelial Cell Urine 0-5 /hpf (0-5); WBC Urine >100 /hpf (0-5)
[2024-12-23 04:52] LABS: Add Urine Culture? Yes; Add Urine Microscopic? YES; Bilirubin Urine Neg (Negative); Blood Urine 3+ (Negative); Glucose Urine UA 1+ (Normal); Ketones Urine Negative (Negative); Leukocyte Esterase Urine 2+ (Negative); Nitrate Urine Negative (Negative); Protein Urine 1+ (Negative); Specific Gravity, Urine 1.005 (1.005-1.030); Urine Appearance Slightly Cloudy (CLEAR); Urine Color Other (Yellow); Urobilinogen Urine Norm (Negative); pH Urine 6 (5-7)
--- NOTE | 2024-12-23 04:55 | CTR_ITS ---
PROCEDURE INFORMATION: Exam: CT Abdomen And Pelvis Without Contrast Exam date and time: 12/23/2024 5:42 AM Age: 84 years old Clinical indication: Abdominal pain; Localized; Prior surgery; Surgery date: 6+ months; Surgery type: Pacer; Lower abd pain with hematuria; Additional info: Abd pain hematuria TECHNIQUE: Imaging protocol: Computed tomography of the abdomen and pelvis without contrast. Radiation optimization: All CT scans at this facility use at least one of these dose optimization techniques: automated exposure control; mA and/or kV adjustment per patient size (includes targeted exams where dose is matched to clinical indication); or iterative reconstruction. COMPARISON: CR XR chest 2V* [id number] 07/17/2024 3:51 PM RADIATION DOSE METRICS: Total DLP (mGy-cm): 473.68 FINDINGS: Tubes, catheters and devices: There is a pacemaker in place. Lungs: There is atelectasis in both lung bases.. Diaphragm: There is a small hiatal hernia. Liver: The liver is unremarkable. Gallbladder and biliary ducts: Patient has undergone previous cholecystectomy. There is no biliary ductal dilatation Pancreas: There is no pancreatic mass or ductal dilatation. Spleen: There are no focal splenic lesions. Adrenal glands: The adrenal glands are unremarkable. Kidneys and ureters: There is no renal or ureteral calculus. There is no hydronephrosis . There is a complex cystic lesion in the right mid kidney measuring 2.3 x 2.1 x 2.3 cm. Follow-up with either renal mass protocol CT or MRI. There are smaller low-density lesions in the right kidney too small to accurately characterize but likely cysts. Stomach and bowel: The bowel-gas pattern is not obstructed. There is a fairly large amount of stool suggesting constipation. There is diverticulosis without CT evidence for active diverticulitis Appendix: The appendix is not identified. There are no inflammatory changes adjacent to the cecum. Intraperitoneal space: Unremarkable. No free air. No significant fluid collection. Vasculature: Unremarkable. No abdominal aortic aneurysm. Lymph nodes: Unremarkable. No enlarged lymph nodes. Urinary bladder: There is circumferential wall thickening involving the bladder. Reproductive: Patient appears to be status post hysterectomy. Bones/joints: There are degenerative changes in the hips, symphysis, sacroiliac joints and spine. There is spinal scoliosis present. Sclerotic foci in the bony pelvis are likely bone islands in the absence of any known primary malignancy Soft tissues: There is a small umbilical hernia containing only fat. Other findings: There is an 8 mm nodule in the right breast not included in its entirety. CT/CT kidney stone [id number] IMPRESSION: 1. Previous cholecystectomy. Negative for biliary ductal dilatation 2. Previous hysterectomy 3. Circumferential wall thickening bladder 4. Negative for renal or ureteral calculi. Negative for hydronephrosis. Complex cystic lesion right kidney which needs further evaluation either with CT renal mass protocol or MRI. Ultrasound may be helpful. 5. Pacemaker 6. [id number] amount of stool suggesting constipation. Diverticulosis without CT evidence for active diverticulitis 7. Pacemaker 8. Right breast nodule. Recommend correlation with mammogram and ultrasound 9. Small hiatal hernia 10. Small umbilical hernia containing only fat COMMENTS: Consistent with the [employer]'s Incidental Findings Committee white paper (J Am Amara Radiol 2018): Any incidental renal lesion less than 1 cm or classified as too small to characterize, or any incidental cystic renal lesion characterized as simple-appearing, is likely benign. No follow-up imaging is recommended for these lesions per consensus recommendations based on imaging criteria.
[2024-12-23 05:23] VITALS: RESP 20; O2SAT 100
[2024-12-23] MEDS: ondansetron 2 mg/ML SDV 2 mL 4 MG IVP (05:23)
[2024-12-23] MEDS: fentaNYL 50 mcg/mL INJ 2mL 25 MCG IVP (05:23)
--- NOTE | 2024-12-23 05:25 | ED_ITS ---
HPI - Female Genitourinary 2 General: Chief complaint: Urogenital-Female Stated complaint: Blood in urin Time Seen by Provider: 12/23/24 04:30 History of Present Illness: 84-year-old female who lives at home. S he complains of dysuria, mild abdominal pain, and blood in her urine. She noticed the blood earlier this morning which concerned her. No fever. No vomiting. Related Data Previous Rx's ?Medication ?Instructions ?Recorded pen needle, diabetic 31 gauge x #100 ea 11/03/2201/31 (TRUEplus Pen Needle) flash glucose sensor (FreeStyle #1 kit 11/25/22 Linda 2 Sensor kit) metoprolol succinate 50 mg See Rx Instructions .Route 05/02/24 tablet,extended release 24 hr .COMPLEX #90 tabs apixaban 2.5 mg tablet 2.5 mg PO BID #60 tabs 05/17 atorvastatin 40 mg tablet 40 mg PO DAILY #90 tabs 04/20 blood sugar diagnostic (Blood #100 ea 05/17/24 Glucose Test strips) insulin aspart U-100 100 unit/mL See Rx Instructions . Route 05/17/24 (3 mL) subcutaneous pen (Novolog .COMPLEX #30 mL FlexPen U-100 Insulin aspart) lisinopril 20 1 tab PO DAILY #90 tabs 04/20 mg-hydrochlorothiazide 12.5 mg tablet mupirocin 2 % topical ointment 1 applic topical DAILY #22 grams 05/17/24 insulin glargine 100 unit/mL (3 See Rx Instructions .R oute 06/19/24 mL) subcutaneous pen (Lantus .COMPLEX #63 mL Solostar U-100 Insulin) febuxostat 40 mg tablet See Rx Instructions .Route 1 .COMPLEX #30 tabs doxycycline hyclate 100 mg capsule 100 mg PO BID 10 da ys #20 caps 07/10/24 methimazole 5 mg tablet See Rx Instructions .Route 1 10/21/23 .COMPLEX #90 tabs cetirizine 10 mg tablet See Rx Instructions .Route 0 11/22/24 .COMPLEX #30 tabs pantoprazole 40 mg tablet,delayed See Rx Instructions .Route 12/18/24 release .COMPLEX #90 tabs cefdinir 300 mg capsule 300 mg PO BID #14 caps 12/23 magnesium citrate (Citrate of 296 ml PO DAILY #296 mL 12/23/24 Magnesia oral) Allergies Allergy/AdvReac Type Severity Reaction Status Date / Time aspirin Allergy vomit Verified 12/13/24 11:19 codeine Allergy vomit Verified 12/13/24 11:19 liraglutide (From Victoza) Allergy ADR-Vomitin Verified 12/13/24 11:19 g meperidine (From Demerol) Allergy vomit Verified 12/13/24 11:19 Penicillins Allergy hives Verified 12/13/24 11:19 PFSH ED 2 PFSH: Medical History History of COVID-19 Ectopic gastric mucosa GERD (gastroesophageal reflux disease) Warfarin anticoagulation Environmental and seasonal allergies History of nonmelanoma skin cancer Diabetes Atrial fibrillation History of pacemaker History of staph infection Surgical History History of esophagogastroduodenoscopy (EGD) Family History Other Hypertension Social History Smoking and tobacco/nicotine status: never used tobacco/nicotine Second hand smoke exposure: No Alcohol intake: never Substance/Drug Use: never Lives independently: Yes Household members: children Marital status: / Current occupational status: retired Current gender identity: Female Special paz needs: No Female Reproductive History: Spontaneous abortions: No Physical Exam 2 Const: COMMON NORMALS: no acute distress GENERAL APPEARANCE: cooperative; not ill appearing HENMT: COMMON NORMALS: normocephalic, atraumatic and Normal external nose present HEAD & SCALP: normocephalic and atraumatic FACE & SINUS: normal facial exam and face symmetric NOSE: Normal external nose present Eye: COMMON NORMALS: Equal, round and reactive pupils present and EOMs intact bilaterally PUPIL: Yes Equal, round and reactive pupils present Neck/C-Spine: GENERAL: Yes trachea midline Chest: CHEST: Yes Symmetrical chest wall rise Resp: COMMON NORMALS: normal respiratory effort, No retractions, No use of accessory muscles and clear to auscultation bilaterally AUSCULTATION: clear to auscultation bilaterally Cardio: COMMON NORMALS: regular rate and regular rhythm RATE: regular rate RHYTHM: regular rhythm GI: COMMON NORMALS: Normal to inspection, nondistended, normoactive bowel sounds present Extremity: COMMON NORMALS: no pedal edema Neuro: MAGGIE COMA SCALE: document GCS findings Maggie coma scale eye opening: Spontaneous [place] coma scale verbal response: Orientated [place] coma scale motor response: Obey commands [place] coma scale total score: 15 S ENSORY EXAM: Yes extremities (intact) Psych: COMMON NORMALS: speech normal SPEECH: Yes normal speech Skin: COMMON NORMALS: no rashes or lesions noted GENERAL SKIN EXAM: no rashes or lesions noted Course 2 Vital Signs: Vital signs: Vital Signs Temperature 98.9 F 12/23/24 04:27 Pulse Rate 59 L 12/23/24 06:18 Respiratory Rate 16 12/23/24 06:18 Blood Pressure 150/60 12/23/24 06:18 Pulse Oximetry 93 12/23/24 06:18 Oxygen Delivery Me thod Room Air 12/23/24 05:28 MDM - Female Medical Decision Making White blood cell count is 14. Creatinine is 1.2. Other laboratory not remarkable. Urinalysis reveals greater than 100 whites with 50-100 RBCs and 2+ leukocyte esterase. CT shows constipation, cystitis, and no urinary obstruction or calculus. She will be discharged on antibiotics. She is given a gram of Rocephin here. She will also be given a prescription for magnesium citrate. Lab Data 12/23/24 05:20 12/23/24 05:20 Radiology Impressions Abdomen/Pelvis CT 12/23/24 04:55 IMPRESSION: 1. Previous cholecystectomy. Negative for biliary ductal dilatation 2. Previous hysterectomy 3. Circumferential wall thickening bladder 4. Negative for renal or ureteral calculi. Negative for hydronephrosis. Complex cystic lesion right kidney which needs further evaluation either with CT renal mass protocol or MRI. Ultrasound may be helpful. 5. Pacemaker 6. [id number] amount of stool suggesting constipation. Diverticulosis without CT evidence for active diverticulitis 7. Pacemaker 8. Right breast nodule. Recommend correlation with mammogram and ultrasound 9. Small hiatal hernia 10. Small umbilical hernia containing only fat COMMENTS: Consistent with the [employer]'s Incidental Findings Committee white paper (J Am Amara Radiol 2018): Any incidental renal lesion less than 1 cm or classified as too small to characterize, or any incidental cystic renal lesion characterized as simple-appearing, is likely benign. No follow-up imaging is recommended for these lesions per consensus recommendations based on imaging criteria. Laboratory Results WBC 14.11 10^3/uL (3.29-11.43) H 12/23/24 05:20 RBC 4.01 10^6/uL (3.85-5.65) 12/23/24 05:20 Hgb 11.60 g/dL (11.27-16.99) 12/23/24 05:20 Hct 36.1 % (36-47) 12/23/24 05:20 MCV 90.0 fl (85-98) 12/23/24 05:20 MCH 28.9 pg (27-33) 12/23/24 05:20 MCHC 32.1 g/dL (30-55) 12/23/24 05:20 RDW 12.5 % (12.1-15.1) 12/23/24 05:20 Plt Count 241 10^3/cmm (157-399) 12/23/24 05:20 MPV 9.7 fL (7.4-10.4) 12/23/24 05:20 Neut % (Auto) 77.2 % 12/23/24 05:20 Lymph % (Auto) 13.6 % 12/23/24 05:20 [place] % (Auto) 7.5 % 12/23/24 05:20 Eos % (Auto) 0.9 % 12/23/24 05:20 Baso % (Auto) 0.4 % 12/23/24 05:20 Neut # (Auto) 10.90 10^3/uL (1.8-7.7) H 12/23/24 05:20 Lymph # (Auto) 1.9 10^3/uL (0.8-4.8) 12/23/24 05:20 [place] # (Auto) 1.1 10^3/uL (0.2-0.9) H 12/23/24 05:20 Eos # (Auto) 0.1 10^3/uL (0.0-0.8) 12/23/24 05:20 Baso # (Auto) 0.1 10^3/uL (0.0-0.1) 12/23/24 05:20 Nucleated RBC % (auto) 0 % 12/23/24 05:20 Nucleated RBCs # 0.0 /100WBC 12/23/24 05:20 Sodium 139 mmol/L (136-145) 12/23/24 05:20 Potassium 4.5 mmol/L (3.5-5.1) 12/23/24 05:20 Chloride 102 mmol/L (98-107) 12/23/24 05:20 Carbon Dioxide 28 mmol/L (22-29) 12/23/24 05:20 Anion Gap 13.5 (5-19) 12/23/24 05:20 BUN 31 mg/dL (8-23) H 12/23/24 05:20 Creatinine 1.2 mg/dL (0.5-0.9) H 12/23/24 05:20 GFR Calculation Not Reportable 12/23/24 05:20 Glucose 231 mg/dL (65-115) H 12/23/24 05:20 Calculated Osmolality 302 mOsm/kg (285-295) H 12/23/24 05:20 Lactic Acid 0.7 mmol/L (0.5-2.2) 12/23/24 05:20 Calcium 9.5 mg/dL (8.5-10.5) 12/23/24 05:20 Total Bilirubin 0.4 mg/dL (0.15-1.2) 12/23/24 05:20 AST 10 U/L (0-32) 12/23/24 05:20 ALT 11 U/L (0-33) 12/23/24 05:20 Alkaline Phosphatase 95 U/L (35-105) 12/23/24 05:20 Total Protein 6.5 g/dL (6.6-8.7) L 12/23/24 05:20 Albumin 3.9 g/dL (3.5-5.2) 12/23/24 05:20 Globulin 2.6 g/dL (1.3-4.6) 12/23/24 05:20 Lipase 25 U/L (13-60) 12/23/24 05:20 Urine Color Other (Yellow) A 12/23/24 04:31 Urine Appearance Slightly cloudy (CLEAR) 12/23/24 04:31 Urine pH 6 (5-7) 12/23/24 04:31 Ur Specific [place] 1.005 (1.005-1.030) 12/23/24 04:31 Urine Protein 1+ (Negative) A 12/23/24 04:31 Urine Glucose (UA) 1+ (Normal) H 12/23/24 04:31 Urine Ketones Negative (Negative) 12/23/24 04:31 Urine Blood 3+ (Negative) A 12/23/24 04:31 Urine Nitrate Negative (Negative) 12/23/24 04:31 Urine Bilirubin Neg (Negative) 12/23/24 04:31 Urine Urobilinogen Norm mg/dL (Negative) 12/23/24 04:31 Ur Leukocyte Esterase 2+ (Negative) A 12/23/24 04:31 Urine RBC 51-100 /hpf (0-2) H 12/23/24 04:31 Urine WBC >100 /hpf (0-5) H 12/23/24 04:31 Ur Squamous Epith Cells 0-5 /hpf (0-5) 12/23/24 04:31 Amorphous Sediment Not Reportable 12/23/24 04:31 Urine Bacteria None seen /hpf (NONE) 12/23/24 04:31 Hyaline Casts 0-4 /lpf H 12/23/24 04:31 All radiology interpretation(s) finalized by discharge Discharge Plan Discharge Patient Disposition: Home Clinical Impression: Cystitis, Urinary tract infection, Constipation Condition: Stable Prescriptions: New cefdinir 300 mg capsule 300 mg PO BID Qty: 14 0RF magnesium citrate [Citrate of Magnesia] Solution 296 ml PO DAILY Qty: 296 0RF No Action (DME) pen needle, diabetic [TRUEplus Pen Needle] 31 gauge x 5/16 needle See Rx Instructions .ROUTE .COMPLEX Qty: 100 11RF Dose Instruction: USE THREE TIMES DAILY Rx Instructions: USE FIVE TIMES DAILY doxycycline hyclate 100 mg capsule 100 mg PO BID 10 Days Qty: 20 0RF (DME) FreeStyle Linda 2 Sensor Kit See Rx Instructions .ROUTE .COMPLEX Qty: 1 0RF Dose Instruction: DIRECTED Rx Instructions: DIRECTED metoprolol succinate 50 mg tablet extended release 24 hr See Rx Instructions .ROUTE .COMPLEX Qty: 90 3RF Dose Instruction: TAKE 1 AND 1/2 TABLETS BY MOUTH DAILY Rx Instructions: TAKE 1 AND 1/2 TABLETS BY MOUTH DAILY apixaban 2.5 mg tablet 2.5 mg PO BID Qty: 60 2RF atorvastatin 40 mg tablet 40 mg PO DAILY Qty: 90 0RF Rx Instructions: TAKE ONE TABLET BY MOUTH EVERY DAY (DME) Blood Glucose Test Strip See Rx Instructions .ROUTE .MEDSUPPLY Qty: 100 2RF Rx Instructions: As directed; to test TID insulin aspart U-100 [Novolog FlexPen U-100 Insulin] 100 unit/mL (3 mL) insulin pen See Rx Instructions .ROUTE .COMPLEX Qty: 30 2RF Dose Instruction: inject using sliding scale THREE TIMES DAILY UP TO 100 units DAILY Rx Instructions: inject using sliding scale THREE TIMES DAILY UP TO 100 units DAILY lisinopril-hydrochlorothiazide 20-12.5 mg tablet 1 tab PO DAILY Qty: 90 0RF mupirocin 2 % ointment 1 applic topical DAILY Qty: 22 0RF Lantus Solostar U-100 Insulin 100 unit/mL (3 mL) insulin pen See Rx Instructions .ROUTE .COMPLEX Qty: 63 2RF Dose Instruction: inject 35 units SUBCUTANEOUSLY TWICE DAILY Rx Instructions: Administer 20 units sub-q twice daily. febuxostat 40 mg tablet See Rx Instructions .ROUTE .COMPLEX Qty: 30 5RF Dose Instruction: TAKE ONE TABLET BY MOUTH EVERY DAY Rx Instructions: TAKE ONE TABLET BY MOUTH EVERY DAY methimazole 5 mg tablet See Rx Instructions .ROUTE .COMPLEX Qty: 90 1RF Dose Instruction: TAKE ONE TABLET BY MOUTH DAILY Rx Instructions: TAKE ONE TABLET BY MOUTH DAILY cetirizine 10 mg tablet See Rx Instructions .ROUTE .COMPLEX Qty: 30 0RF Dose Instruction: TAKE 1 TABLET BY MOUTH EVERY DAY Rx Instructions: TAKE 1 TABLET BY MOUTH EVERY DAY pantoprazole 40 mg tablet,delayed release (DR/EC) See Rx Instructions .ROUTE .COMPLEX Qty: 90 0RF Dose Instruction: TAKE ONE TABLET BY MOUTH DAILY Rx Instructions: TAKE ONE TABLET BY MOUTH DAILY Discharge Orders: Discharge ED (Routine); Ordered 12/23/24 Ordered By: Michael Grace Referrals: Esme Ramires FNP [Primary Care Provider] - 1-3 days Patient Instructions: Constipation (ED), Urinary Tract Infection in Older Adults (ED), Opioid Safety, Pain Management Activity Restrictions/Additional Instructions: Use the liquid medication prescribed for constipation. An oral antibiotic is for your bladder infection. Return for fever despite 2-3 doses of antibiotics, vomiting liquids or medications, worsening pain, other concerning symptoms. See your doctor this week. Call later this morning for an appointment. Print Language: Bel[place]ian Coding Level of Care Code ED [employer] Representative [employer] for Maria Luisa Ingram
[2024-12-23 05:28] VITALS: BP 122/77; PULSE 59; O2SAT 97
[2024-12-23 05:31] LABS: Basophils # 0.1 10^3/uL (0.0-0.1); Basophils % 0.4 %; Eosinophils # 0.1 10^3/uL (0.0-0.8); Eosinophils % 0.9 %; Hematocrit 36.1 % (36-47); Lymphocytes # 1.9 10^3/uL (0.8-4.8); Lymphocytes % 13.6 %; Mean Corpuscular HGB Conc 32.1 g/dL (30-55); Mean Corpuscular Hemoglobin 28.9 pg (27-33); Mean Platelet Volume 9.7 fL (7.4-10.4); Monocytes # 1.1 10^3/uL (0.2-0.9); Monocytes % 7.5 %; Neutrophils % 77.2 %; Nucleated Red Blood Cells % 0 %; Platelet Count 241 10^3/cmm (157-399); Red Blood Count 4.01 10^6/uL (3.85-5.65); Red Cell Distribution Width 12.5 % (12.1-15.1); White Blood Count 14.11 10^3/uL (3.29-11.43)
[2024-12-23 05:46] LABS: Lactic Sepsis W/Reflex 0.7 mmol/L (0.5-2.2)
[2024-12-23 05:47] LABS: Alanine Aminotransferase 11 U/L (0-33); Albumin Level 3.9 g/dL (3.5-5.2); Alkaline Phosphatase 95 U/L (35-105); Anion Gap 13.5 (5-19); Aspartate Amino Transferase 10 U/L (0-32); Blood Urea Nitrogen 31 mg/dL (8-23); Calcium 9.5 mg/dL (8.5-10.5); Carbon Dioxide 28 mmol/L (22-29); Chloride 102 mmol/L (98-107); Creatinine Clr Calc Pharmacy 35.5187; Globulin 2.6 g/dL (1.3-4.6); Glucose 231 mg/dL (65-115); Lipase 25 U/L (13-60); Osmolality Calculated 302 mOsm/kg (285-295); Potassium 4.5 mmol/L (3.5-5.1); Sodium 139 mmol/L (136-145); Total Bilirubin 0.4 mg/dL (0.15-1.2); Total Protein 6.5 g/dL (6.6-8.7)
[2024-12-23 06:00] VITALS: PULSE 62; RESP 18; O2SAT 97
[2024-12-23] MEDS: cefTRIAXone 1,000 mg SDV 1000 MG IVP (06:14)
[2024-12-23 06:18] VITALS: BP 150/60; PULSE 59; RESP 16; O2SAT 93
[2024-12-23 07:03] VITALS: BP 146/64; PULSE 93; O2SAT 96
== END 2024-12-23 07:05 | disposition home or self-care (01) ==
PROVIDERS: Emergency Provider Emergency Medicine; PCP Nurse Practitioner Family
DX: N30.90 Cystitis, unspecified without hematuria (principal); K59.00 Constipation, unspecified; Z79.4 Long term (current) use of insulin; E11.9 Type 2 diabetes mellitus without complications; Z95.0 Presence of cardiac pacemaker
CPT/HCPCS: 36415; 74176; 80053; 81001; 83605; 83690; 85025; 87077; 87086; 87186; 96374; 96375; 99285; J0696; J2405; J3010

== ENCOUNTER → 2025-01-02 10:11 | Outpatient (BNVA) | payer OTHER, MEDICARE, SELFPAY | PROVIDERS: PCP Family Medicine; Visit Provider Nurse Practitioner Family | DX: R39.9 Unspecified symptoms and signs involving the genitourinary system (principal) | CPT/HCPCS: 81000 ==

== ENCOUNTER 2025-02-26 11:05 | Outpatient (CLI) | payer OTHER, MEDICARE, SELFPAY ==
--- NOTE | 2025-02-26 12:00 | CT_ITS ---
WS: [id number] CT ABDOMEN AND PELVIS NONCONTRAST HISTORY: N28.9 - Disorder of kidney and ureter, unspecified TECHNIQUE: Imaging performed through the abdomen and pelvis. Coronal and sagittal reformats are submitted. All CT scans at [facility] [place] use at least one of these dose optimization techniques: automated exposure control; mA and/or kV adjustment per patient size (includes targeted exams where dose is matched to clinical indication); or iterative reconstruction. DLP: 435.40 mGy.cm COMPARISON: 12/23/2024 Lower thorax: Small hiatal hernia. Otherwise negative. Liver: Normal size liver. No mass or bile duct dilatation. Gallbladder: Prior cholecystectomy. Pancreas: Normal size and attenuation. Normal pancreatic duct. No pancreatitis or mass. Spleen: Normal. Adrenal glands: Normal RIGHT adrenal gland. Subcentimeter LEFT adrenal nodule. Right kidney: Mild perinephric stranding. No obstruction. No ureteral calcification. 1.8 cm low-attenuation mass in the RIGHT kidney. RIGHT renal cyst was located at this location on a prior ultrasound from 2014. Left kidney: Normal size kidney with mild perinephric stranding. No obstruction. Aorta: Minimal atherosclerosis aorta. No free fluid, intraperitoneal air or significant lymphadenopathy. GI tract: Prior appendectomy. No obstruction. No colitis. Mild sigmoid diverticulosis without acute diverticulitis. Abdominal wall: Small umbilical hernia contains fat only. Pelvis: Nondistended urinary bladder. Rectocele may be present. Osseous structures: Degenerative disc disease in the lumbar spine. CT/CT kidney stone [id number] IMPRESSION: 1. No acute abdominal or pelvic abnormalities identified. 2. No renal obstruction. No ureteral obstruction. 3. Prior cholecystectomy and appendectomy. 4. Moderate diffuse constipation. 5. Moderate cardiomegaly with cardiac pacer wires noted. 6. Low-attenuation mass RIGHT kidney. A cyst was noted in this location of sim ilar size in 2015.
== END 2025-02-26 11:06 | disposition home or self-care (01) ==
LOC: RAD 11:07
PROVIDERS: PCP Family Medicine; Visit Provider Family Medicine
DX: N28.1 Cyst of kidney, acquired (principal); N28.9 Disorder of kidney and ureter, unspecified; K59.00 Constipation, unspecified; Z90.49 Acquired absence of other specified parts of digestive tract; I51.7 Cardiomegaly
CPT/HCPCS: 74176

== ENCOUNTER 2025-03-24 06:12 | Emergency (ER) | payer OTHER, MEDICARE, SELFPAY ==
--- NOTE | 2025-03-24 06:17 | XRR_ITS ---
PROCEDURE INFORMATION: Exam: XR Left Knee Exam date and time: 03/24/2025 6:38 AM Age: 84 years old Clinical indication: Pain; Knee; Left; Additional info: Trauma TECHNIQUE: Imaging protocol: Radiologic exam of the left knee. Views: 3 views. COMPARISON: No relevant prior studies available. FINDINGS: Bones/joints: Mild diffuse demineralization. Moderate medial compartment narrowing. Mild chondrocalcinosis. Moderate tricompartment spurring. Soft tissues: Normal. XR/XR knee LT 3V* [id number] IMPRESSION: Degenerative changes.
--- NOTE | 2025-03-24 06:17 | XRR_ITS ---
PROCEDURE INFORMATION: Exam: XR Left Hip Exam date and time: 03/24/2025 6:38 AM Age: 84 years old Clinical indication: Hip pain; Left hip; Additional info: Trauma TECHNIQUE: Imaging protocol: Radiologic exam of the left hip. Views: 2 or 3 views hip with pelvis when performed. COMPARISON: CT kidney stone [id number] 02/26/2025 11:57 AM FINDINGS: Bones/joints: Mild articular surface narrowing and spurring. No fracture or dislocation. No acute osseous or joint abnormality.. No acute fracture. Soft tissues: Unremarkable. XR/XR hip LT 2-3V wo/w pel* [id number] IMPRESSION: Mild degenerative changes.
[2025-03-24 06:22] VITALS: BP 143/113; PULSE 75; RESP 18; TEMP 36.4; O2SAT 97; BMI 28.3
--- NOTE | 2025-03-24 06:29 | ED_ITS ---
HPI - General Adult General: Chief complaint: Extremity Problem,Nontraumatic Stated complaint: L knee and hip fall Time Seen by Provider: 03/24/25 06:16 History of Present Illness: 84-year-old female presents emergency ro om complaining of left knee and left hip pain patient was up and active just today [place] No fall or trauma. Associated symptoms: Deny chest pain, dyspnea or rash Related Data Home Medications ?Medication ?Instructions ?Recorded ?Confirmed cholecalciferol (vitamin D3) 50 PO 12/24/24 02/12/25 mcg (2,000 unit) tablet (Vitamin D3) Previous Rx's ?Medication ?Instructions ?Recorded flash glucose sensor (FreeStyle #1 kit 11/25/22 Linda 2 Sensor kit) blood sugar diagnostic (Blood #100 ea 05/17/24 Glucose Test strips) cetirizine 10 mg tablet See Rx Instructions .Route 0 12/30/24 .COMPLEX #30 tabs pen needle, diabetic 31 gauge x #100 ea 01/13/2501/31 (TRUEplus Pen Needle) apixaban 2.5 mg tablet 2.5 mg PO BID #60 tabs 02/12 atorvastatin 40 mg tablet 40 mg PO DAILY #90 tabs 01/17 05/12 febuxostat 40 mg tablet See Rx Instructions .Route 0 02/12/25 .COMPLEX #30 tabs hydrocodone 5 mg-acetaminophen 325 See Rx Instructions PO Q4H 30 days 02/12/25 mg tablet #112 tabs insulin aspart U-100 100 unit/mL See Rx Instructions . Route 02/12/25 (3 mL) subcutaneous pen (Novolog .COMPLEX #30 mL FlexPen U-100 Insulin aspart) insulin glargine 100 unit/mL (3 See Rx Instructions .R oute 02/12/25 mL) subcutaneous pen (Lantus .COMPLEX #63 mL Solostar U-100 Insulin) lisinopril 20 1 tab PO DAILY #90 tabs 01/17 05/12 mg-hydrochlorothiazide 12.5 mg tablet methimazole 5 mg tablet See Rx Instructions .Route 0 02/12/25 .COMPLEX #90 tabs metoprolol succinate 50 mg See Rx Instructions .Route 02/12/25 tablet,extended release 24 hr .COMPLEX #90 tabs pantoprazole 40 mg tablet,delayed See Rx Instructions .Route 02/12/25 release .COMPLEX #90 tabs diclofenac sodium 75 mg 75 mg PO Q12H PRN pain #20 t abs 03/24/25 tablet,delayed release prednisone 20 mg tablet 20 mg PO TID #15 tabs Allergies Allergy/AdvReac Type Severity Reaction Status Date / Time aspirin Allergy vomit Verified 02/12/25 11:37 codeine Allergy vomit Verified 02/12/25 11:37 liraglutide (From Victoza) Allergy ADR-Vomitin Verified 02/12/25 11:37 g meperidine (From Demerol) Allergy vomit Verified 02/12/25 11:37 Penicillins Allergy hives Verified 02/12/25 11:37 Review of Systems Const: Denies: fever(s) or chills Card: Denies: chest pain Resp: Denies: dyspnea GI: Denies: abdominal pain : Denies: dysuria, urinary frequency or urinary urgency Musc: Reports: joint pain; Denies: neck pain or back pain Skin/Breast: Denies: rash PFSH ED PFSH: Medical History History of COVID-19 Ectopic gastric mucosa GERD (gastroesophageal reflux disease) Warfarin anticoagulation Environmental and seasonal allergies History of nonmelanoma skin cancer Diabetes Atrial fibrillation History of pacemaker History of staph infection Surgical History History of esophagogastroduodenoscopy (EGD) Family History Other Hypertension Social History Smoking and tobacco/nicotine status: never used tobacco/nicotine Second hand smoke exposure: No Alcohol intake: never Substance/Drug Use: never Lives independently: Yes Household members: children Marital status: / Current occupational status: retired Current gender identity: Female Special paz needs: No Female Reproductive History: Spontaneous abortions: No Physical Exam Const: GENERAL APPEARANCE: cooperative ORIENTATION/CONSCIOUSNESS: Yes awake, Yes oriented to person, Yes oriented to place and Yes oriented to time HENMT: COMMON NORMALS: normocephalic, atraumatic and hearing grossly normal bilaterally HEAD & SCALP: normocephalic and atraumatic Resp: COMMON NORMALS: normal respiratory effort, No retractions, No use of accessory muscles and clear to auscultation bilaterally AUSCULTATION: clear to auscultation bilaterally Cardio: COMMON NORMALS: regular rate, regular rhythm and No murmurs present (Cardio) RATE: regular rate RHYTHM: regular rhythm Extremity: COMMON NORMALS: normal to inspection, capillary refill normal, no clubbing, cyanosis or edema, no calf tenderness and no pedal edema Neuro: SENSORIUM/ORIENTATION: Yes oriented to person, Yes oriented to place and Yes oriented to time Skin: COMMON NORMALS: no rashes or lesions noted GENERAL SKIN EXAM: no rashes or lesions noted Course Vital Signs: Vital signs: Vital Signs Temperature 97.6 F 03/24/25 06:22 Pulse Rate 75 03/24/25 06:22 Respiratory Rate 18 03/24/25 06:22 Blood Pressure 143/113 03/24/25 06:22 Pulse Oximetry 97 03/24/25 06:22 Oxygen Delivery Me thod Room Air 03/24/25 06:22 MDM - General Adult Medical Decision Making Discharge home with steroid taper diclofenac to use as needed continue the hydrocodone that she had been given previously. Keep your appointment with Dr. Bejarano later this week for joint injection. Medical Records I reviewed the patient's medical records. Lab Data I reviewed the patient's lab results. All radiology interpretation(s) finalized by discharge Discharge Plan Discharge Patient Disposition: Home Clinical Impression: Primary osteoarthritis of knees, bilateral Condition: Stable Prescriptions: New prednisone 20 mg tablet 20 mg PO TID Qty: 15 0RF Rx Instructions: 1 p.o. 3 times daily x3 days, 1 p.o. twice daily x2 days, 1 p.o. daily x2 days diclofenac sodium 75 mg tablet,delayed release (DR/EC) 75 mg PO Q12H PRN (Reason: pain) Qty: 20 0RF No Action cholecalciferol (vitamin D3) [Vitamin D3] 50 mcg (2,000 unit) tablet PO hydrocodone-acetaminophen 5-325 mg tablet See Rx Instructions PO Q4H 30 Days Qty: 112 0RF Rx Instructions: take 1/2 to 1 tab orally every 4 hour as needed for pain. apixaban 2.5 mg tablet 2.5 mg PO BID Qty: 60 5RF atorvastatin 40 mg tablet 40 mg PO DAILY Qty: 90 3RF Rx Instructions: TAKE ONE TABLET BY MOUTH EVERY DAY febuxostat 40 mg tablet See Rx Instructions .ROUTE .COMPLEX Qty: 30 4RF Dose Instruction: TAKE ONE TABLET BY MOUTH EVERY DAY Rx Instructions: TAKE ONE TABLET BY MOUTH EVERY DAY insulin aspart U-100 [Novolog FlexPen U-100 Insulin] 100 unit/mL (3 mL) insulin pen See Rx Instructions .ROUTE .COMPLEX Qty: 30 5RF Dose Instruction: inject using sliding scale THREE TIMES DAILY UP TO 100 units DAILY Rx Instructions: inject using sliding scale THREE TIMES DAILY UP TO 100 units DAILY Lantus Solostar U-100 Insulin 100 unit/mL (3 mL) insulin pen See Rx Instructions .ROUTE .COMPLEX Qty: 63 3RF Dose Instruction: inject 35 units SUBCUTANEOUSLY TWICE DAILY Rx Instructions: Administer 20 units sub-q twice daily. lisinopril-hydrochlorothiazide 20-12.5 mg tablet 1 tab PO DAILY Qty: 90 2RF methimazole 5 mg tablet See Rx Instructions .ROUTE .COMPLEX Qty: 90 1RF Dose Instruction: TAKE ONE TABLET BY MOUTH DAILY Rx Instructions: TAKE ONE TABLET BY MOUTH DAILY metoprolol succinate 50 mg tablet extended release 24 hr See Rx Instructions .ROUTE .COMPLEX Qty: 90 3RF Dose Instruction: TAKE 1 AND 1/2 TABLETS BY MOUTH DAILY Rx Instructions: TAKE 1 AND 1/2 TABLETS BY MOUTH DAILY pantoprazole 40 mg tablet,delayed release (DR/EC) See Rx Instructions .ROUTE .COMPLEX Qty: 90 2RF Dose Instruction: TAKE ONE TABLET BY MOUTH DAILY Rx Instructions: TAKE ONE TABLET BY MOUTH DAILY ([facility]) FreeStyle Linda 2 Sensor Kit See Rx Instructions .ROUTE .COMPLEX Qty: 1 0RF Dose Instruction: DIRECTED Rx Instructions: DIRECTED (DME) Blood Glucose Test Strip See Rx Instructions .ROUTE .MEDSUPPLY Qty: 100 2RF Rx Instructions: As directed; to test TID cetirizine 10 mg tablet See Rx Instructions .ROUTE .COMPLEX Qty: 30 3RF Dose Instruction: TAKE 1 TABLET BY MOUTH EVERY DAY Rx Instructions: TAKE 1 TABLET BY MOUTH EVERY DAY (DME) pen needle, diabetic [TRUEplus Pen Needle] 31 gauge x 5/16 needle See Rx Instructions .ROUTE .COMPLEX Qty: 100 3RF Dose Instruction: USE DIRECTED FIVE TIMES DAILY Rx Instructions: USE DIRECTED FIVE TIMES DAILY Discharge Orders: Discharge ED (Routine); Ordered 03/24/25 Ordered By: Nba Pereyra Referrals: Diego Saucedo, [Primary Care Provider, Family Practice] Discharge Diet: Usual diet Patient Instructions: Opioid Safety, Pain Management, Patient Portal & Jose Instructions Activity Restrictions/Additional Instructions: Thank you for choosing [facility] for your healthcare needs today. It is very important that you follow up as instructed or that you return to the Emergency Department should you have concerns or if your condition changes or worsens in any way. Follow-up with Dr. Bejarano as planned. You are given a steroid taper as well as diclofenac to use as needed. You can continue the hydrocodone as well. Print Language: Iraqi Coding Level of Care Code ED Audit Intern for Maria Luisa Ingram
[2025-03-24] MEDS: morphine 4 mg/mL SDV 1 mL IVP (07:06)
[2025-03-24] MEDS: methylPREDNISolone sod succ 125 mg/2 mL INJ IVP (07:06)
== END 2025-03-24 07:43 | disposition home or self-care (01) ==
PROVIDERS: Emergency Provider Family Medicine; PCP Family Medicine
DX: M17.0 Bilateral primary osteoarthritis of knee (principal); Z79.4 Long term (current) use of insulin; E11.9 Type 2 diabetes mellitus without complications; Z95.0 Presence of cardiac pacemaker
CPT/HCPCS: 36415; 73502; 73562; 96374; 96375; 99284; J2270; J2919

== ENCOUNTER → 2025-03-28 10:45 | Outpatient (BNVA) | payer MEDICARE, SELFPAY | PROVIDERS: PCP Nurse Practitioner Family; Visit Provider Specialist | DX: M17.0 Bilateral primary osteoarthritis of knee (principal) | CPT/HCPCS: 20610; J1100; J2795; J3301; J7326; J9999 ==

== ENCOUNTER → 2025-04-14 15:05 | Outpatient (BNVA) | payer MEDICARE, OTHER, SELFPAY | PROVIDERS: PCP Nurse Practitioner Family; Visit Provider Family Medicine | DX: E55.9 Vitamin D deficiency, unspecified (principal); I10 Essential (primary) hypertension; I48.19 Other persistent atrial fibrillation; E11.42 Type 2 diabetes mellitus with diabetic polyneuropathy; E05.90 Thyrotoxicosis, unspecified without thyrotoxic crisis or storm; N18.9 Chronic kidney disease, unspecified; R79.89 Other specified abnormal findings of blood chemistry; R30.9 Painful micturition, unspecified | CPT/HCPCS: 80053; 80061; 81000; 82306; 82607; 83036; 84439; 84443; 85025 ==

== ENCOUNTER → 2025-04-22 15:30 | Outpatient (BNVA) | payer MEDICARE, OTHER, SELFPAY | PROVIDERS: PCP Nurse Practitioner Family; Visit Provider Nurse Practitioner Family | DX: L30.4 Erythema intertrigo (principal); D23.39 Other benign neoplasm of skin of other parts of face; D18.01 Hemangioma of skin and subcutaneous tissue; Z08 Encounter for follow-up examination after completed treatment for malignant neoplasm; Z85.828 Personal history of other malignant neoplasm of skin; L82.0 Inflamed seborrheic keratosis; L29.89 Other pruritus; R20.9 Unspecified disturbances of skin sensation; R20.8 Other disturbances of skin sensation | CPT/HCPCS: 17110; 99213 ==

== ENCOUNTER 2025-04-24 11:51 | Emergency (ER) | payer MEDICARE, OTHER, SELFPAY ==
--- OUTSIDE RECORDS SUMMARY | 2025-04-24 11:57 | XMS_ITS | Patient Health Record ---
Author Organization [facility] Address [address] [place], [place] [id number] Care Team Providers Care Training Consultant Name Role Phone Sri Vann MD Primary Care Provider Unavail able Mariana GOMES, Edy Unavailable [phone] Benjamín Casas DO Unavailable Unavailable Love Pinedo Unavailable [phone] Allergies Allergen (clinical drug ingredient) Drug/Non Drug Allergy documented on EMR Reaction Allergy Type Onset Date Status codeine codeine Unknown Drug Allergy Active aspirin aspirin Unknown Drug Allergy Active penicillin Unknown Drug Allergy Active liraglutide Victoza Unknown Drug Allergy Activ e meperidine Demerol vomiting - severe Drug Allergy Active Results Component Value Reference Range Notes Urine tox screen / MS if ind icated Reviewed date:07/31/2024 03:18:04 PM Interpretation:Consistent Performing Lab: Notes/Report: Consistent Reason For Referral No Information Medications Medication SIG (Take, Route, Frequency, Duration) Notes Start Date End Date Status pantoprazole 20 mg 1 tab orally twice a day 02/16/2021 Active NovoLOG FlexPen 100 units/mL subcutaneously as directed Active acetaminophen-hydroco done 325 mg-5 mg 1/2 - 1 tab orally Q4H prn pain (max 4/day; hold within 4H of planned sleep); Duration: 28 days Do not fill prior to 01/31/25. ICD-10: G89.29 01/22/2025 Active cetirizine 10 mg 1 tab orally once a day Active Tylenol Extra Strength 500 mg 1 tab orally every 6 hours Active atorvastatin 40 mg 1 tab orally once a day Active sucralfate 1 g 1 tab orally 4 times a day (before meals and at bedtime) 02/16/2021 Active febuxostat 40 mg 1 tab orally once a day 9 Active acetaminophen-hydroco done 325 mg-5 mg 1/2 - 1 tab orally Q4H prn pain (max 4/day; hold within 4H of planned sleep); Duration: 28 days Do not fill prior to 02/28/25. ICD-10: G89.29 01/22/2025 Active Eliquis 5 mg as directed orally 2 times a day; Duration: 30 day(s) Active Vitamin D3 400 intl units 1 cap orally once a day Acti ve hydrochlorothiazide-l isinopril 12.5 mg-20 mg 1 tab orally once a day Acti ve fluticasone nasal 50 mcg/inh 1 rinse in each nostril compound once a day 05/20/2021 Active acetaminophen-hydroco done 325 mg-5 mg 1/2 - 1 tab orally Q4H prn pain (max 4/day; hold within 4H of planned sleep); Duration: 28 days Do not fill prior to 03/28/25. ICD-10: G89.29 01/22/2025 Active Metoprolol Succinate ER 50 mg 1 1/2 tabs orally once a day Active methIMAzole 5 mg 1 tab orally every 8 hours 08/11/2021 Active Lantus Solostar Pen 100 units/mL subcutaneously as directed Active Social History Tobacco Use: Social History Observation Description Date Details (start date - stop date) Never Smoker NA - NA Tobacco use: Question Answer Notes : nonsmoker AUDIT-C (Standard) Question Answer Notes Did you have a drink containing alcohol in the p ast year? No Points 0 Interpretation Negative Problems Problem Type SNOMED Code ICD Code Onset Dates Problem Status W/U Status Risk Notes Problem Low back pain (261509591) Low back pain (M54.5) Active confirmed Problem High risk drug monitoring status (574417233) retirement (current) use of opiate analgesic (Z79.891) Active confirmed Problem Pain of right knee region (finding) (94160149036175 5) Pain in right knee (M25.561) Active confirmed Problem Pain of left knee joint (finding) (37677365630546 7) Pain in left knee (M25.562) Active confirmed Problem Hypersomnia (07256783) Hypersomnia, unspecified (G47.10) Active confirmed Problem Sleep disorder (67079618) Other sleep disorders (G47.8) Active confirmed Problem Chronic pain (20940815) Other chronic pain (G89.29) Active confirmed Problem Cervicalgia (30444319) Cervicalgia (M54.2) Active confirmed Problem Long-term current use of drug therapy (918067430) 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) Active confirmed Problem Pain in lumbar spine (111886021) Vertebrogenic low back pain (M54.51) Active confirmed Vital Signs Temperature 97.1 degrees Fahrenheit 01/22/2025 Oximetry 93 % 01/22/2025 Blood pressure diastolic 61 mm Hg 01/22/2025 Height 65 in 01/22/2025 Blood pressure systolic 115 mm Hg 01/22/2025 Weight 177.6 lbs 01/22/2025 BMI 29.55 kg/m2 01/22/2025 Encounters Encounter Location Date Provider Diagnosis [facility] [place] [address] [place], [place] [id number] 05/15/2024 Love Cortez Vertebrogenic low ba ck pain M54.51 ; Other sleep disorders G47.8 and Other chronic pain G89.29 [facility] [address] [place], [place] [id number] 07/24/2024 Edy Peña Vertebrogenic low ba ck pain M54.51 ; Other chronic pain G89.29 ; Other sleep disorders G47.8 and ad terminal makeup operator (current) use of opiate analgesic Z79.891 [facility] [address] [place], [place] [id number] 09/25/2024 Edy Peña Vertebrogenic low ba ck pain M54.51 ; Other chronic pain G89.29 and Other sleep disorders G47.8 [facility] [address] [place], [place] [id number] 11/27/2024 Edy Peña Vertebrogenic low ba ck pain M54.51 ; Other chronic pain G89.29 and Other sleep disorders G47.8 [facility] [address] [place], [place] [id number] 01/22/2025 Edy Peña Vertebrogenic low ba ck pain M54.51 ; Other chronic pain G89.29 and Other sleep disorders G47.8 Assessments Encounter Date Diagnosis (ICD Code) Assessment Notes Treatment Notes Treatment Clinical Notes Section Notes 05/15/2024 Vertebrogenic low back pain (ICD-10 - M54.51) Chronic axial lumbosacral spine pain. 07/24/2024 Other chronic pain (ICD-10 - G89.29) Patient reports that taking her pain medication allows her to clean out her flower beds. Plan to continue oral opioid medication management. 07/24/2024 Vertebrogenic low back pain (ICD-10 - M54.51) Chronic axial lumbosacral spine pain. 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 Plan to continue oral opioid medication management. 09/25/2024 Vertebrogenic low back pain (ICD-10 - M54.51) Chronic axial lumbosacral spine pain. 11/27/2024 Vertebrogenic low back pain (ICD-10 - M54.51) Chronic axial lumbosacral spine pain. 01/22/2025 Vertebrogenic low back pain (ICD-10 - M54.51) Chronic axial lumbosacral spine pain. 01/22/2025 Other chronic pain (ICD-10 - G89.29) Patient reports that taking her pain medication allows her to work in her flower beds. Plan to continue oral opioid medication at today's visit. 07/24/2024 Other sleep disorders (ICD-10 - G47.8) Plan to continue to restrict opioid use in relation to sleep for safety concerns. 11/27/2024 Other chronic pain (ICD-10 - G89.29) Patient reports that taking her pain medication allows her to start cleaning out her flower beds. Plan to continue oral opioid medication management. 09/25/2024 Other sleep disorders (ICD-10 - G47.8) Plan to continue to restrict opioid use in relation to sleep for safety concerns. 05/15/2024 Other sleep disorders (ICD-10 - G47.8) Plan to continue to restrict opioid use in relation to sleep for safety concerns. 05/15/2024 Other chronic pain (ICD-10 - G89.29) Patient reports that taking her pain medication allows her to work in her yard. Plan to continue oral opioid medication management. 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 This places the patient in the low risk category. Plan urine toxicology screen today to monitor for presence of any unprescribed or illicit controlled substance(s), as well as prescribed hydrocodone. 11/27/2024 Other sleep disorders (ICD-10 - G47.8) Plan to continue to restrict opioid use in relation to sleep for safety concerns. 01/22/2025 Other sleep disorders (ICD-10 - G47.8) Plan to continue to restrict opioid use in relation to sleep for safety concerns. 07/24/2024 Other The service was provided by ALEXANDER Garcia, as part of the ongoing care plan established by Edy Peña MD, who was present in the office for direct supervision during the encounter. 09/25/2024 Other The service was provided by ALEXANDER Garcia, as part of the ongoing care plan established by Edy Peña MD, who was present in the office for direct supervision during the encounter. 11/27/2024 Other The service was provided by ALEXANDER Garcia, as part of the ongoing care plan established by Edy Peña MD, who was present in the office for direct supervision during the encounter. 01/22/2025 Other The service was provided by ALEXANDER Garcia, as part of the ongoing care plan established by Edy Peña MD, who was present in the office for direct supervision during the encounter. Patient was provided with a letter at today's visit informing patient that this clinic is closing due to Dr. Peña's prison; see scanned document. Terminal prescriptions were given to the patient along with tapering instructions. 05/15/2024 Other Plan Of Treatment No Information Insurance Providers Payer Name Payer Address Payer Phone Subscriber Number Group Number Insured Name Patient Relationship to Insured Coverage Start Date Coverage End Date [employer] Medicare Part B Claims Department [address] [address] [place] [address] [id number] Mae Rosa Self - patient is the insured [facility] [employer] [address] [place] [address] [id number] Mae Rosa Self - patient is the insured Medical (General) History Medical History History ICD Code Chronic pain Knee pain, orthopedic evaluation per Dr. Coto OA knee / history of repeated steroid in jection therapy in knee Low back pain Lumbar spondylosis, disc dis ease, spinal stenosis and remote laminectomy / discectomy Sacroiliitis Neck pain Spinal stenosis in cervical region, C4-5 Myalgias Cardiac dysrhythmia Mixed hyperlipidemia Chronic GERD Diastolic dysfunction Idiopathic chronic gout Acute gout of right foot Pacemaker Reflux gastritis Atrial fibrillation, controlled Diabetes mellitus type II Vitamin D deficiency Hypertension Chronic kidney disease stage III Exostosis Sleep disorder to include re stless legs and hypersomnia (patient declined prior offer for a sleep study and possible treatment) Overweight, history of mild obesity Surgical History Surgery Date(Month/Year) Tonsillectomy and adenoidectomy Appendectomy Internal hemorrhaging, 1959 Low back surgery (lamineccto my and discectomy with great benefit per patient report), 1960 Hysterectomy (abdominal), 1980 Carpal tunnel release, bilateral Cholecystectomy Placement of pacemaker Bilateral rotator cuff repairs, performe d at [facility] by Dr. Gonzalez Arthroscopic bilateral knee surgeries, p erformed at [facility] by Dr. Gonzalez Right foot surgery, 2001 Excision of cyst, performed by Dr. 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 King and Dr. Jimenez, 2015, 2018 Replacement of pacemaker, performed at [facility] by Dr. Ch, 05/23/18 Right cataract surgery, performed at [facility] by Dr. Will, 01/17/20 Breast biopsy, performed at [facility], 2 EGD, performed at [facility], 08/2023 Eye surgery, right, 03/2024 Blepharoplasty, bilateral, performed at [facility] by Dr. Will, 09/2024 Hospitalization History Reason Date(Month/Year) Kidney failure, treated at [facility], 2008 Kidney failure, treated at [facility], 2008
[2025-04-24 12:04] VITALS: BP 129/65; PULSE 67; RESP 16; TEMP 36.7; O2SAT 95; BMI 27.1
--- NOTE | 2025-04-24 12:45 | USCV_ITS ---
Mae Rosa Age: 84 Gender: F : 1940 Exam Date: 04/24/2025 12:57 Ordering Phys: Sarah Butler MD Technologist: Exam [place] [facility] [place]: lt leg swelling PROCEDURES: Venous duplex imaging was performed in only the left lower extremity. The following venous structures were evaluated: common femoral vein, profunda vein, proximal portion of the greater saphenous vein, superficial femoral vein, and the popliteal vein. In addition, the posterior tibial and peroneal trunk were evaluated. FINDINGS: Normal 2-D Doppler and augmentation and compressibility throughout the lower extremity venous structures. Additional imaging through the proximal calf veins also reveals no thrombus. Limited evaluation of the greater saphenous vein is patent with no thrombus. CONCLUSIONS No DVT left lower extremity. Dr. Christie Simmons DO (Electronically Signed) Final Date: 24 April 2025 13:18 S
--- NOTE | 2025-04-24 12:48 | ED_ITS ---
HPI - Extremity Problem General: Chief complaint: Extremity Problem,Nontraumatic Stated complaint: Ortho sent L knee pain, swelling, possible clot Time Seen by Provider: 04/24/25 12:40 History of Present Illness: 84-year-old female with a history of ROSENDO D, chronic anticoagulation on Eliquis, atrial fibrillation, pacemaker placement, obesity and diabetes who presents the emergency room with left leg pain and swelling. There is no redness. But she says she has pain in her calf and it goes all the way up into her thigh. She called her orthopedic doctor who is out of town currently and they told her to come to the emergency room for an ultrasound. No chest pain. No shortness of breath. Related Data Home Medications ?Medication ?Instructions ?Recorded ?Confirmed cholecalciferol (vitamin D3) 50 PO 12/24/24 04/14/25 mcg (2,000 unit) tablet (Vitamin D3) Previous Rx's ?Medication ?Instructions ?Recorded flash glucose sensor (FreeStyle #1 kit 11/25/22 Linda 2 Sensor kit) cetirizine 10 mg tablet See Rx Instructions .Route 0 12/30/24 .COMPLEX #30 tabs pen needle, diabetic 31 gauge x #100 ea 01/13/2501/31 (TRUEplus Pen Needle) apixaban 2.5 mg tablet 2.5 mg PO BID #60 tabs 02/12 atorvastatin 40 mg tablet 40 mg PO DAILY #90 tabs 01/17 05/12 febuxostat 40 mg tablet See Rx Instructions .Route 0 02/12/25 .COMPLEX #30 tabs hydrocodone 5 mg-acetaminophen 325 See Rx Instructions PO Q4H 30 days 02/12/25 mg tablet #112 tabs insulin aspart U-100 100 unit/mL See Rx Instructions . Route 02/12/25 (3 mL) subcutaneous pen (Novolog .COMPLEX #30 mL FlexPen U-100 Insulin aspart) methimazole 5 mg tablet See Rx Instructions .Route 0 02/12/25 .COMPLEX #90 tabs metoprolol succinate 50 mg See Rx Instructions .Route 02/12/25 tablet,extended release 24 hr .COMPLEX #90 tabs pantoprazole 40 mg tablet,delayed See Rx Instructions .Route 02/12/25 release .COMPLEX #90 tabs diclofenac sodium 75 mg 75 mg PO Q12H PRN pain #20 t abs 03/24/25 tablet,delayed release blood sugar diagnostic (True #100 ea 04/09/25 Metrix Glucose Test Strip) amlodipine 5 mg-valsartan 160 1 tab PO DAILY #90 tabs 04/14/25 mg-hydrochlorothiazide 12.5 mg tablet insulin glargine 100 unit/mL (3 See Rx Instructions .R oute 04/24/25 mL) subcutaneous pen (Lantus .COMPLEX #63 mL Solostar U-100 Insulin) Allergies Allergy/AdvReac Type Severity Reaction Status Date / Time aspirin Allergy vomit Verified 04/24/25 12:07 codeine Allergy vomit Verified 04/24/25 12:07 liraglutide (From Victoza) Allergy ADR-Vomitin Verified 04/24/25 12:07 g meperidine (From Demerol) Allergy vomit Verified 04/24/25 12:07 Penicillins Allergy hives Verified 04/24/25 12:07 Review of Systems Narrative: Constitutional symptoms: Negative except as documented in HPI. Skin symptoms: Negative except as documented in HPI. Eye symptoms: Negative except as documented in HPI. ENMT symptoms: Negative except as documented in HPI. Respiratory symptoms: Negative except as documented in HPI. Cardiovascular symptoms: Negative except as documented in HPI. Gastrointestinal symptoms: Negative except as documented in HPI. Genitourinary symptoms: Negative except as documented in HPI. Musculoskeletal symptoms: Negative except as documented in HPI. Neurologic symptoms: Negative except as documented in HPI. Psychiatric symptoms: Negative except as documented in HPI. Endocrine symptoms: Negative except as documented in HPI. PFS ED PFSH: Medical History (Updated 04/24/25 @ 13:39 by Sarah Butler MD) History of COVID-19 Ectopic gastric mucosa GERD (gastroesophageal reflux disease) Warfarin anticoagulation Environmental and seasonal allergies History of nonmelanoma skin cancer Diabetes Persistent atrial fibrillation History of pacemaker History of staph infection Surgical History History of esophagogastroduodenoscopy (EGD) Family History Other Hypertension Social History Smoking and tobacco/nicotine status: never used tobacco/nicotine Second hand smoke exposure: No Alcohol intake: never Substance/Drug Use: never Lives independently: Yes Household members: children Marital status: / Current occupational status: retired Current gender identity: Female Special paz needs: No Female Reproductive History: Spontaneous abortions: No Physical Exam Narrative: EXAM NARRATIVE: General: Alert, no acute distress. Skin: warm and dry Head: Normocephalic Neck: Trachea midline Eye: Extraocular movements are intact. Ears, nose, mouth and throat: Oral mucosa moist Respiratory: Respirations are non-labored Musculoskeletal: Normal ROM. Some tenderness of the left calf but no obvious warmth or redness. Gastrointestinal: Abdomen does not appear distended Neurological: Alert and oriented, No focal neurological deficit observed. Psychiatric: Cooperative, appropriate mood & affect. Course Vital Signs: Vital signs: Vital Signs Temperature 98.1 F 04/24/25 12:04 Pulse Rate 67 04/24/25 12:04 Respiratory Rate 16 04/24/25 12:04 Blood Pressure 129/65 04/24/25 12:04 Pulse Oximetry 95 04/24/25 12:04 Oxygen Delivery Me thod Room Air 04/24/25 12:04 MDM - Extremity (Nontraumatic) Medical Decision Making Medical decision making: Differential diagnosis including but not limited to and based on the above HPI, review of systems and physical exam: In this patient with left calf pain there is concern for DVT. However she is on a low-dose Eliquis therapy so this seems a little less likely but we will ultrasound her to be sure. Orders placed to evaluate differential diagnosis based on the above differential, HPI and physical exam Ultrasound of the lower extremity shows no DVT. This was reviewed and interpreted by myself the emergency room physician. I also reviewed the radiology report. I reviewed the patient's medical record. Reexamination: Patient remained stable. No increased work of breathing. No altered mental status. No focal motor deficits. Assessment and plan: Calf pain - Discharged home - Discussed plan with patient. Answered any questions. - Evaluation and treatment of this problem were appropriate in the emergency setting. All radiology interpretation(s) finalized by discharge Discharge Plan Discharge Patient Disposition: Home Clinical Impression: Calf pain Condition: Stable Prescriptions: No Action cholecalciferol (vitamin D3) [Vitamin D3] 50 mcg (2,000 unit) tablet PO hydrocodone-acetaminophen 5-325 mg tablet See Rx Instructions PO Q4H 30 Days Qty: 112 0RF Rx Instructions: take 1/2 to 1 tab orally every 4 hour as needed for pain. apixaban 2.5 mg tablet 2.5 mg PO BID Qty: 60 5RF atorvastatin 40 mg tablet 40 mg PO DAILY Qty: 90 3RF Rx Instructions: TAKE ONE TABLET BY MOUTH EVERY DAY febuxostat 40 mg tablet See Rx Instructions .ROUTE .COMPLEX Qty: 30 4RF Dose Instruction: TAKE ONE TABLET BY MOUTH EVERY DAY Rx Instructions: TAKE ONE TABLET BY MOUTH EVERY DAY insulin aspart U-100 [Novolog FlexPen U-100 Insulin] 100 unit/mL (3 mL) insulin pen See Rx Instructions .ROUTE .COMPLEX Qty: 30 5RF Dose Instruction: inject using sliding scale THREE TIMES DAILY UP TO 100 units DAILY Rx Instructions: inject using sliding scale THREE TIMES DAILY UP TO 100 units DAILY methimazole 5 mg tablet See Rx Instructions .ROUTE .COMPLEX Qty: 90 1RF Dose Instruction: TAKE ONE TABLET BY MOUTH DAILY Rx Instructions: TAKE ONE TABLET BY MOUTH DAILY metoprolol succinate 50 mg tablet extended release 24 hr See Rx Instructions .ROUTE .COMPLEX Qty: 90 3RF Dose Instruction: TAKE 1 AND 1/2 TABLETS BY MOUTH DAILY Rx Instructions: TAKE 1 AND 1/2 TABLETS BY MOUTH DAILY pantoprazole 40 mg tablet,delayed release (DR/EC) See Rx Instructions .ROUTE .COMPLEX Qty: 90 2RF Dose Instruction: TAKE ONE TABLET BY MOUTH DAILY Rx Instructions: TAKE ONE TABLET BY MOUTH DAILY ndzowvfmwa-yoypdlxlo-uhrmgxpxu 5-160-12.5 mg tablet 1 tab PO DAILY Qty: 90 1RF (DME) FreeStyle Linda 2 Sensor Kit See Rx Instructions .ROUTE .COMPLEX Qty: 1 0RF Dose Instruction: DIRECTED Rx Instructions: DIRECTED cetirizine 10 mg tablet See Rx Instructions .ROUTE .COMPLEX Qty: 30 3RF Dose Instruction: TAKE 1 TABLET BY MOUTH EVERY DAY Rx Instructions: TAKE 1 TABLET BY MOUTH EVERY DAY (DME) pen needle, diabetic [TRUEplus Pen Needle] 31 gauge x 5/16 needle See Rx Instructions .ROUTE .COMPLEX Qty: 100 3RF Dose Instruction: USE DIRECTED FIVE TIMES DAILY Rx Instructions: USE DIRECTED FIVE TIMES DAILY (DME) True Metrix Glucose Test Strip Strip See Rx Instructions .ROUTE .COMPLEX Qty: 100 2RF Dose Instruction: USE DIRECTED TO TEST THREE TIMES DAILY Rx Instructions: USE DIRECTED TO TEST THREE TIMES DAILY Lantus Solostar U-100 Insulin 100 unit/mL (3 mL) insulin pen See Rx Instructions .ROUTE .COMPLEX Qty: 63 3RF Dose Instruction: inject 35 units SUBCUTANEOUSLY TWICE DAILY Rx Instructions: Administer 25 units sub-q twice daily. diclofenac sodium 75 mg tablet,delayed release (DR/EC) 75 mg PO Q12H PRN (Reason: pain) Qty: 20 0RF Discharge Orders: Discharge ED (Routine); Ordered 04/24/25 Ordered By: Sarah Butler Referrals: Diego Saucedo DO [Primary Care Provider, Family Practice] Patient Instructions: Opioid Safety, Pain Management, Patient Portal & Jose Instructions Activity Restrictions/Additional Instructions: Thank you for choosing [facility] for your healthcare needs today. You have been screened and evaluated and felt safe for discharge. Health conditions do change or evolve sometimes and as such it is important that you follow up with your Primary Doctor to be re checked, 3-5 days is a general good time frame for follow up. You are always welcome to return to the ED for re assessment if your symptoms are worsening or you have new concerns Print Language: Slovenian Coding Level of Care Code ED Spring Upholsterer for Maria Luisa Ingram
== END 2025-04-24 13:47 | disposition home or self-care (01) ==
PROVIDERS: Emergency Provider Emergency Medicine; PCP Family Medicine
DX: M79.605 Pain in left leg (principal); Z79.4 Long term (current) use of insulin; E11.9 Type 2 diabetes mellitus without complications; Z95.0 Presence of cardiac pacemaker; Z79.01 Long term (current) use of anticoagulants
CPT/HCPCS: 93971; 99284

== ENCOUNTER 2025-04-25 05:59 | Emergency (ER) | payer MEDICARE, OTHER, SELFPAY ==
--- NOTE | 2025-04-25 06:06 | W.ED.LOWEXIN ---
HPI - Extremity Injury (Lower) General: Chief Complaint: Extremity Problem,Nontraumatic Stated Complaint: L leg swollen from the knee down painful Time Seen by Provider: 04/25/25 06:03 History of Present Illness: 84-year-old female presents emergency room complaining of leg pain and swelling on her left leg. Last month she has been to the emergency room several times for the similar complaints she has seen Ortho. She did have an injection in her knee on March 28 last month. She had low-dose Eliquis because of atrial fibrillation she was seen yesterday for the same complaint and had ultrasound of her leg to evaluate for DVT which was negative. Patient is reporting pain that radiates through her buttock across the anterior lateral thigh down to the level of the knee. She has not noticed anything that makes it better or worse she took multiple doses of hydrocodone overnight without improvement. No trauma since we have seen her in early March where she related the pain you are need to walking on a gravel bar. She does have some mild low back pain accompanying this as well. No saddle anesthesia no urinary retention or fecal incontinence Related Data Home Medications ?Medication ?Instructions ?Recorded ?Confirmed cholecalciferol (vitamin D3) 50 PO 12/24/24 04/14/25 mcg (2,000 unit) tablet (Vitamin D3) Previous Rx's ?Medication ?Instructions ?Recorded flash glucose sensor (FreeStyle #1 kit 11/25/22 Linda 2 Sensor kit) cetirizine 10 mg tablet See Rx Instructions .Route 12/30/24 .COMPLEX #30 tabs pen needle, diabetic 31 gauge x #100 ea 01/13/2501/31 (TRUEplus Pen Needle) apixaban 2.5 mg tablet 2.5 mg PO BID #60 tabs 02/12/25 atorvastatin 40 mg tablet 40 mg PO DAILY #90 tabs 02/12/25 febuxostat 40 mg tablet See Rx Instructions .Route 02/12/25 .COMPLEX #30 tabs hydrocodone 5 mg-acetaminophen 325 See Rx Instructions PO Q4H 30 days 02/12/25 mg tablet #112 tabs insulin aspart U-100 100 unit/mL See Rx Instructions .Route 02/12/25 (3 mL) subcutaneous pen (Novolog .COMPLEX #30 mL FlexPen U-100 Insulin aspart) methimazole 5 mg tablet See Rx Instructions .Route 02/12/25 .COMPLEX #90 tabs metoprolol succinate 50 mg See Rx Instructions .Route 02/12/25 tablet,extended release 24 hr .COMPLEX #90 tabs pantoprazole 40 mg tablet,delayed See Rx Instructions .Route 02/12/25 release .COMPLEX #90 tabs diclofenac sodium 75 mg 75 mg PO Q12H PRN pain #20 tabs 03/24/25 tablet,delayed release blood sugar diagnostic (True #100 ea 04/09/25 Metrix Glucose Test Strip) amlodipine 5 mg-valsartan 160 1 tab PO DAILY #90 tabs 04/14/25 mg-hydrochlorothiazide 12.5 mg tablet insulin glargine 100 unit/mL (3 See Rx Instructions .Route 04/24/25 mL) subcutaneous pen (Lantus .COMPLEX #63 mL Solostar U-100 Insulin) prednisone 20 mg tablet 20 mg PO TID #15 tabs 04/25/25 pregabalin 75 mg capsule 75 mg PO BID #60 caps 04/25/25 Allergies Allergy/AdvReac Type Severity Reaction Status Date / Time aspirin Allergy vomit Verified 04/24/25 12:07 codeine Allergy vomit Verified 04/24/25 12:07 liraglutide (From Victoza) Allergy ADR-Vomitin Verified 04/24/25 12:07 g meperidine (From Demerol) Allergy vomit Verified 04/24/25 12:07 Penicillins Allergy hives Verified 04/24/25 12:07 Review of Systems Const: Denies: fever(s) or chills Card: Denies: chest pain Resp: Denies: dyspnea GI: Denies: abdominal pain : Denies: dysuria, urinary frequency or urinary urgency Musc: Reports: back pain; Denies: neck pain Skin/Breast: Denies: rash PFSH ED PFSH: Medical History History of COVID-19 Ectopic gastric mucosa GERD (gastroesophageal reflux disease) Warfarin anticoagulation Environmental and seasonal allergies History of nonmelanoma skin cancer Diabetes Persistent atrial fibrillation History of pacemaker History of staph infection Surgical History History of esophagogastroduodenoscopy (EGD) Family History Other Hypertension Social History Smoking and tobacco/nicotine status: never used tobacco/nicotine Second hand smoke exposure: No Alcohol intake: never Substance/Drug Use: never Lives independently: Yes Household members: children Marital status: / Current occupational status: retired Current gender identity: Female Special paz needs: No Female Reproductive History: Spontaneous abortions: No Physical Exam Const: GENERAL APPEARANCE: cooperative ORIENTATION/CONSCIOUSNESS: Yes awake, Yes oriented to person, Yes oriented to place and Yes oriented to time HENMT: COMMON NORMALS: normocephalic, atraumatic and hearing grossly normal bilaterally HEAD & SCALP: normocephalic and atraumatic Resp: COMMON NORMALS: normal respiratory effort, No retractions, No use of accessory muscles and clear to auscultation bilaterally AUSCULTATION: clear to auscultation bilaterally Cardio: COMMON NORMALS: regular rate, regular rhythm and No murmurs present (Cardio) RATE: regular rate RHYTHM: regular rhythm GI: COMMON NORMALS: Soft to palpation and No hepatosplenomegaly present AUSCULTATION: Yes normoactive bowel sounds PALPATION: Yes Soft to palpation, No Tenderness to palpation present (GI), No Guarding due to palpation present (GI) and Yes No hepatosplenomegaly present Extremity: COMMON NORMALS: normal to inspection, capillary refill normal, no clubbing, cyanosis or edema, no calf tenderness and no pedal edema Neuro: SENSORIUM/ORIENTATION: Yes oriented to person, Yes oriented to place and Yes oriented to time Skin: COMMON NORMALS: no rashes or lesions noted GENERAL SKIN EXAM: no rashes or lesions noted Course Vital Signs: Vital signs: Vital Signs Temperature 98.2 F 04/25/25 06:09 Pulse Rate 60 04/25/25 09:13 Respiratory Rate 16 04/25/25 09:13 Blood Pressure 109/90 04/25/25 09:13 Pulse Oximetry 95 04/25/25 09:13 Oxygen Delivery Me thod Room Air 04/25/25 08:49 MDM - Extremity Injury (Lower) Medical Decision Making Suspect patient's symptoms are more radicular in nature she describes pain in her low back is radiating through the buttock across anterior lateral thigh. Describes an L4 V nerve root irritation. Notably acute on his CTA. Her pain is improved here will discharge home on a steroid taper continue the hydrocodone she currently has at home. Will also added pregabalin. Chest x-ray was read as suspected retrocardiac pneumonia however patient is not hypoxic has no cough and no leukocytosis clinically there is no signs of pneumonia did not start an antibiotic at this time. Medical Records I reviewed the patient's medical records. Lab Data I reviewed the patient's lab results. 04/25/25 06:45 04/25/25 06:45 Radiology Impressions Chest X-Ray 04/25/25 06:09 IMPRESSION: Suspected retrocardiac pneumonia. Lumbar Spine CT 04/25/25 06:13 IMPRESSION: Lumbar spondylosis, dextroscoliosis. Laboratory Results WBC 5.21 10^3/uL (3.29-11.43) 04/25/25 06:45 RBC 3.74 10^6/uL (3.85-5.65) L 04/25/25 06:45 Hgb 10.80 g/dL (11.27-16.99) L 04/25/25 06:45 Hct 33.5 % (36-47) L 04/25/25 06:45 MCV 89.6 fl (85-98) 04/25/25 06:45 MCH 28.9 pg (27-33) 04/25/25 06:45 MCHC 32.2 g/dL (30-55) 04/25/25 06:45 RDW 12.3 % (12.1-15.1) 04/25/25 06:45 Plt Count 194 10^3/cmm (157-399) 04/25/25 06:45 MPV 9.9 fL (7.4-10.4) 04/25/25 06:45 Neut % (Auto) 49.6 % 04/25/25 06:45 Lymph % (Auto) 36.3 % 04/25/25 06:45 [place] % (Auto) 9.2 % 04/25/25 06:45 Eos % (Auto) 3.1 % 04/25/25 06:45 Baso % (Auto) 1.0 % 04/25/25 06:45 Neut # (Auto) 2.59 10^3/uL (1.8-7.7) 04/25/25 06:45 Lymph # (Auto) 1.9 10^3/uL (0.8-4.8) 04/25/25 06:45 [place] # (Auto) 0.5 10^3/uL (0.2-0.9) 04/25/25 06:45 Eos # (Auto) 0.2 10^3/uL (0.0-0.8) 04/25/25 06:45 Baso # (Auto) 0.1 10^3/uL (0.0-0.1) 04/25/25 06:45 Nucleated RBC % (auto) 0 % 04/25/25 06:45 Nucleated RBCs # 0.0 /100WBC 04/25/25 06:45 Sodium 137 mmol/L (136-145) 04/25/25 06:45 Potassium 4.2 mmol/L (3.5-5.1) 04/25/25 06:45 Chloride 101 mmol/L (98-107) 04/25/25 06:45 Carbon Dioxide 29 mmol/L (22-29) 04/25/25 06:45 Anion Gap 11.2 (5-19) 04/25/25 06:45 BUN 31 mg/dL (8-23) H 04/25/25 06:45 Creatinine 1.1 mg/dL (0.5-0.9) H 04/25/25 06:45 GFR Calculation Not Reportable 04/25/25 06:45 Glucose 362 mg/dL (65-115) H 04/25/25 06:45 Calculated Osmolality 305 mOsm/kg (285-295) H 04/25/25 06:45 Calcium 9.2 mg/dL (8.5-10.5) 04/25/25 06:45 Total Bilirubin 0.5 mg/dL (0.15-1.2) 04/25/25 06:45 AST 13 U/L (0-32) 04/25/25 06:45 ALT 14 U/L (0-33) 04/25/25 06:45 Alkaline Phosphatase 88 U/L (35-105) 04/25/25 06:45 C-Reactive Protein 3.0 mg/L (0.0-4.9) 04/25/25 06:45 Total Protein 6.0 g/dL (6.6-8.7) L 04/25/25 06:45 Albumin 3.5 g/dL (3.5-5.2) 04/25/25 06:45 Globulin 2.5 g/dL (1.3-4.6) 04/25/25 06:45 All radiology interpretation(s) finalized by discharge Discharge Plan Discharge Patient Disposition: Home Clinical Impression: Lumbar radiculopathy Condition: Stable Prescriptions: New prednisone 20 mg tablet 20 mg PO TID Qty: 15 0RF Rx Instructions: 1 p.o. 3 times daily x3 days, 1 p.o. twice daily x2 days, 1 p.o. daily x2 days pregabalin 75 mg capsule 75 mg PO BID Qty: 60 0RF No Action cholecalciferol (vitamin D3) [Vitamin D3] 50 mcg (2,000 unit) tablet PO hydrocodone-acetaminophen 5-325 mg tablet See Rx Instructions PO Q4H 30 Days Qty: 112 0RF Rx Instructions: take 1/2 to 1 tab orally every 4 hour as needed for pain. apixaban 2.5 mg tablet 2.5 mg PO BID Qty: 60 5RF atorvastatin 40 mg tablet 40 mg PO DAILY Qty: 90 3RF Rx Instructions: TAKE ONE TABLET BY MOUTH EVERY DAY febuxostat 40 mg tablet See Rx Instructions .ROUTE .COMPLEX Qty: 30 4RF Dose Instruction: TAKE ONE TABLET BY MOUTH EVERY DAY Rx Instructions: TAKE ONE TABLET BY MOUTH EVERY DAY insulin aspart U-100 [Novolog FlexPen U-100 Insulin] 100 unit/mL (3 mL) insulin pen See Rx Instructions .ROUTE .COMPLEX Qty: 30 5RF Dose Instruction: inject using sliding scale THREE TIMES DAILY UP TO 100 units DAILY Rx Instructions: inject using sliding scale THREE TIMES DAILY UP TO 100 units DAILY methimazole 5 mg tablet See Rx Instructions .ROUTE .COMPLEX Qty: 90 1RF Dose Instruction: TAKE ONE TABLET BY MOUTH DAILY Rx Instructions: TAKE ONE TABLET BY MOUTH DAILY metoprolol succinate 50 mg tablet extended release 24 hr See Rx Instructions .ROUTE .COMPLEX Qty: 90 3RF Dose Instruction: TAKE 1 AND 1/2 TABLETS BY MOUTH DAILY Rx Instructions: TAKE 1 AND 1/2 TABLETS BY MOUTH DAILY pantoprazole 40 mg tablet,delayed release (DR/EC) See Rx Instructions .ROUTE .COMPLEX Qty: 90 2RF Dose Instruction: TAKE ONE TABLET BY MOUTH DAILY Rx Instructions: TAKE ONE TABLET BY MOUTH DAILY iwkgncknoh-fqtzplgbn-xcrlqxuoc 5-160-12.5 mg tablet 1 tab PO DAILY Qty: 90 1RF (DME) FreeStyle Linda 2 Sensor Kit See Rx Instructions .ROUTE .COMPLEX Qty: 1 0RF Dose Instruction: DIRECTED Rx Instructions: DIRECTED cetirizine 10 mg tablet See Rx Instructions .ROUTE .COMPLEX Qty: 30 3RF Dose Instruction: TAKE 1 TABLET BY MOUTH EVERY DAY Rx Instructions: TAKE 1 TABLET BY MOUTH EVERY DAY (DME) pen needle, diabetic [TRUEplus Pen Needle] 31 gauge x 5/16 needle See Rx Instructions .ROUTE .COMPLEX Qty: 100 3RF Dose Instruction: USE DIRECTED FIVE TIMES DAILY Rx Instructions: USE DIRECTED FIVE TIMES DAILY (DME) True Metrix Glucose Test Strip Strip See Rx Instructions .ROUTE .COMPLEX Qty: 100 2RF Dose Instruction: USE DIRECTED TO TEST THREE TIMES DAILY Rx Instructions: USE DIRECTED TO TEST THREE TIMES DAILY Lantus Solostar U-100 Insulin 100 unit/mL (3 mL) insulin pen See Rx Instructions .ROUTE .COMPLEX Qty: 63 3RF Dose Instruction: inject 35 units SUBCUTANEOUSLY TWICE DAILY Rx Instructions: Administer 25 units sub-q twice daily. diclofenac sodium 75 mg tablet,delayed release (DR/EC) 75 mg PO Q12H PRN (Reason: pain) Qty: 20 0RF Discharge Orders: Discharge ED (Routine); Ordered 04/25/25 Ordered By: Nba Pereyra Referrals: Diego Saucedo DO [Primary Care Provider, Family Practice] Discharge Diet: Usual diet Discharge Activity: Limit activity as instructed Patient Instructions: Opioid Safety, Pain Management, Patient Portal & Jose Instructions Activity Restrictions/Additional Instructions: Thank you for choosing [facility] for your healthcare needs today. It is very important that you follow up as instructed or that you return to the Emergency Department should you have concerns or if your condition changes or worsens in any way. You were seen in the emergency room with complaints of leg pain. Based on your history and presenting symptoms suspect that you have a nerve impingement causing pain radiating down your leg. Will start you on a steroid taper additionally start pregabalin 1 tablet twice a day continue take the hydrocodone you are previously prescribed as needed. internal audit senior manager will make arrangements for you to have a follow-up appointment with Dr. Palmer. Print Language: [place] Coding Level of Care Code ED Wood Repatcher for Maria Luisa Ingram
[2025-04-25 06:09] VITALS: BP 151/75; PULSE 81; RESP 18; TEMP 36.8; O2SAT 94; BMI 27.1
--- NOTE | 2025-04-25 06:09 | XRR_ITS ---
PROCEDURE INFORMATION: Exam: XR Chest Exam date and time: 04/25/2025 6:35 AM Age: 84 years old Clinical indication: Dyspnea; Prior surgery; Surgery date: 6+ months; Surgery type: Pacer; Additional info: Leg edema TECHNIQUE: Imaging protocol: Radiologic exam of the chest. Views: 1 view. COMPARISON: CR XR chest 2V* [id number] 07/17/2024 3:51 PM FINDINGS: Tubes, catheters and devices: A permanent pacemaker overlies and obscures the lateral right upper chest with atrial and ventricular wire leads. Lungs: There is hazy retrocardiac opacity. Pleural spaces: Unremarkable. No pleural effusion. No pneumothorax. Heart/Mediastinum: Unremarkable. No cardiomegaly. Bones/joints: The bones are osteopenic. XR/XR chest 1V portable [id number] IMPRESSION: Suspected retrocardiac pneumonia.
--- OUTSIDE RECORDS SUMMARY | 2025-04-25 06:09 | XMS_ITS | Patient Health Record ---
Author Organization [facility] Address [address] [place], [place] [id number] Care Team Providers Care Digital Assistant Name Role Phone Sri Vann MD Primary Care Provider Unavail able Mariana GOMES, Edy Unavailable [phone] Benjamín Casas DO Unavailable Unavailable Love Pinedo Unavailable [phone] Allergies Allergen (clinical drug ingredient) Drug/Non Drug [...] Status Risk Notes Problem Low back pain (960376094) Low back pain (M54.5) Active confirmed Problem High risk drug monitoring status (892607553) intermediate (current) use of opiate analgesic (Z79.891) Active confirmed Problem Pain of right knee region (finding) (59561401207084 5) Pain in right knee (M25.561) Active confirmed Problem Pain of left knee joint (finding) (83676062136500 7) Pain in left knee (M25.562) Active confirmed Problem Hypersomnia (03865686) Hypersomnia, unspecified (G47.10) Active confirmed Problem Sleep disorder (52553114) Other sleep disorders (G47.8) Active confirmed Problem Chronic pain (52336937) Other chronic pain (G89.29) Active confirmed Problem Cervicalgia (48900657) Cervicalgia (M54.2) Active confirmed Problem Long-term current use of drug therapy (397514118) Other exterminator helper (current) drug therapy (Z79.899) Active confirmed Problem Pain in lumbar spine (693978505) Vertebrogenic low back pain (M54.51) Active confirmed Vital Signs Temperature 97.1 degrees Fahrenheit 01/22/2025 Blood pressure diastolic 61 mm Hg 01/22/2025 Oximetry 93 % 01/22/2025 Height 65 in 01/22/2025 Blood pressure systolic 115 mm Hg 01/22/2025 Weight 177.6 lbs 01/22/2025 BMI 29.55 kg/m2 01/22/2025 Encounters Encounter Location Date Provider Diagnosis [facility], [place] [address] [place], [place] [id number] 05/15/2024 Love Cortez Vertebrogenic low ba ck pain M54.51 ; Other sleep disorders G47.8 and Other chronic pain G89.29 [facility], [facility] [address] [place], [place] [id number] 07/24/2024 Edy Peña Vertebrogenic low ba ck pain M54.51 ; Other chronic pain G89.29 ; Other sleep disorders G47.8 and medical terminologist (current) use of opiate analgesic Z79.891 [facility], [facility] [address] [place], [place] [id number] 09/25/2024 Edy Peña Vertebrogenic low ba ck pain M54.51 ; Other chronic pain G89.29 and Other sleep disorders G47.8 [facility], [facility] [address] [place], [place] [id number] 11/27/2024 Edy Peña Vertebrogenic low ba ck pain M54.51 ; Other chronic pain G89.29 and Other sleep disorders G47.8 [facility], [facility] [address] [place], [place] [id number] 01/22/2025 Edy Peña Vertebrogenic low ba ck [...] to continue oral opioid medication management. 07/24/2024 medical terminologist (current) use of opiate analgesic (ICD-10 - [...] clinic is closing due to Dr. Peña's custodial; see scanned document. Terminal prescriptions were given to the patient along with tapering instructions. 05/15/2024 Other Plan Of Treatment No Information Insurance Providers Payer Name Payer Address Payer Phone Subscriber Number Group Number Insured Name Patient Relationship to Insured Coverage Start Date Coverage End Date [employer] Medicare Part B Claims Department [address] [address] [place] [address] [id number] Mae Rosa Self - patient is the insured [facility] [employer] [address] [place] [address] [id number] Mae Rosa Self - patient is the [...] Bilateral rotator cuff repairs, performe d at [facility] by [facility]. Gonzalez Arthroscopic bilateral knee surgeries, p erformed at [facility] by Dr. Gonzalez Right foot surgery, 2001 Excision of cyst, performed by Dr. 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 King and Dr. Jimenez, 2015, 2018 Replacement of pacemaker, performed at [facility] by Dr. Ch, 05/23/18 Right cataract surgery, performed at [facility] by Dr. Will, 01/17/20 Breast biopsy, performed at [facility], 2 EGD, performed at [facility], 08/2023 Eye surgery, right, 03/2024 Blepharoplasty, bilateral, performed at [facility] by Dr. Will, 09/2024 Hospitalization History Reason Date(Month/Year) Kidney failure, treated at [facility], 2008 Kidney failure, treated at [facility], 2008
--- NOTE | 2025-04-25 06:13 | CTR_ITS ---
PROCEDURE INFORMATION: Exam: CT Lumbar Spine Without Contrast Exam date and time: 04/25/2025 6:20 AM Age: 84 years old Clinical indication: Low back pain; Prior surgery; Surgery date: 6+ months; Surgery type: Lumbar surgery 65 years ago; Additional info: Radiculopathy TECHNIQUE: Imaging protocol: Computed tomography of the lumbar spine without contrast. Radiation optimization: All CT scans at this facility use at least one of these dose optimization techniques: automated exposure control; mA and/or kV adjustment per patient size (includes targeted exams where dose is matched to clinical indication); or iterative reconstruction. COMPARISON: CT kidney stone [id number] 02/26/2025 11:57 AM RADIATION DOSE METRICS: Total DLP (mGy-cm): 719.2 FINDINGS: Bones/joints: Vertebral body heights are preserved. There is a 14 degree dextroscoliosis of the lumbar spine centered at L4. The bones are osteopenic. Multilevel spondylosis is noted with disc osteophyte, facet arthropathy, uncovertebral spurring and ligament thickening. There is moderate canal narrowing at L3-L4 and neural foraminal stenosis at multiple levels. Soft tissues: Unremarkable. CT/CT lumbar spine wo con* [id number] IMPRESSION: Lumbar spondylosis, dextroscoliosis.
[2025-04-25 06:38] VITALS: RESP 16
[2025-04-25] MEDS: orphenadrine 30 mg/mL Inj 2 mL 60 MG IM (06:38)
[2025-04-25] MEDS: morphine 4 mg/mL SDV 1 mL IVP (06:38)
[2025-04-25 06:55] LABS: Hematocrit 33.5 % (36-47); Hemoglobin 10.80 g/dL (11.27-16.99); Mean Corpuscular HGB Conc 32.2 g/dL (30-55); Mean Corpuscular Hemoglobin 28.9 pg (27-33); Mean Corpuscular Volume 89.6 fl (85-98); Nucleated Red Blood Cells % 0 %; Platelet Count 194 10^3/cmm (157-399); Red Blood Count 3.74 10^6/uL (3.85-5.65); White Blood Count 5.21 10^3/uL (3.29-11.43)
[2025-04-25 07:10] LABS: Alanine Aminotransferase 14 U/L (0-33); Albumin Level 3.5 g/dL (3.5-5.2); Alkaline Phosphatase 88 U/L (35-105); Anion Gap 11.2 (5-19); Aspartate Amino Transferase 13 U/L (0-32); Blood Urea Nitrogen 31 mg/dL (8-23); Calcium 9.2 mg/dL (8.5-10.5); Carbon Dioxide 29 mmol/L (22-29); Chloride 101 mmol/L (98-107); Creatinine Clr Calc Pharmacy 38.2857; Globulin 2.5 g/dL (1.3-4.6); Glucose 362 mg/dL (65-115); Osmolality Calculated 305 mOsm/kg (285-295); Potassium 4.2 mmol/L (3.5-5.1); Sodium 137 mmol/L (136-145); Total Protein 6.0 g/dL (6.6-8.7)
[2025-04-25 08:49] VITALS: BP 109/90; PULSE 60; RESP 16; O2SAT 93
--- NOTE | 2025-04-25 08:59 | DCPLANNER ---
messaged ortho for er f/u
[2025-04-25 09:13] VITALS: BP 109/90; PULSE 60; RESP 16; O2SAT 95
== END 2025-04-25 09:14 | disposition home or self-care (01) ==
PROVIDERS: Emergency Provider Family Medicine; PCP Family Medicine
DX: M54.16 Radiculopathy, lumbar region (principal)
CPT/HCPCS: 71045; 72131; 80053; 85025; 86140; 96372; 96374; 99285; J1100; J2270; J2360

== ENCOUNTER → 2025-05-01 13:09 | Outpatient (BNVA) | payer MEDICARE, OTHER, SELFPAY | PROVIDERS: PCP Family Medicine; Visit Provider Orthopaedic Surgery | DX: M54.16 Radiculopathy, lumbar region (principal); M54.50 Low back pain, unspecified | CPT/HCPCS: 72110; 99204 ==

== ENCOUNTER → 2025-05-21 13:16 | Outpatient (BNVA) | payer MEDICARE, OTHER, SELFPAY | PROVIDERS: PCP Family Medicine; Visit Provider Nurse Practitioner Family | DX: M79.18 Myalgia, other site (principal); M54.16 Radiculopathy, lumbar region; G89.29 Other chronic pain | CPT/HCPCS: 20553; 99214; J1010; J3490 ==

== ENCOUNTER 2025-05-28 13:32 | Outpatient (CLI) | payer MEDICARE, OTHER, SELFPAY ==
--- NOTE | 2025-05-28 13:39 | MM_ITS ---
WS: [id number] BILATERAL 3D TOMOSYNTHESIS DIGITAL SCREENING MAMMOGRAPHY WITH CAD CLINICAL INFORMATION: SCREENING HISTORY: Screening mammogram. No current complaints. COMPARISON: 2022 TECHNIQUE: Bilateral CC and MLO views. FINDINGS: Scattered fibroglandular densities bilaterally. No suspicious focal mass, asymmetry, calcifications, or architectural distortion. No evidence of malignancy. RIGHT breast biopsy clip. Incidental punctate illnesses and calcifications. Numerous bilateral mole markers. MM/MM scr BI tomosynthesis [id number] IMPRESSION: DENSITY: There are scattered areas of fibroglandular density. BI-RADS: 2 - Benign. FOLLOW UP: 1 Year Follow-up Recommend return to annual screening mammography.
== END 2025-05-28 13:33 | disposition home or self-care (01) ==
LOC: RAD 13:32
PROVIDERS: PCP Family Medicine; Visit Provider Family Medicine
DX: Z12.31 Encounter for screening mammogram for malignant neoplasm of breast (principal); R92.323 Mammographic fibroglandular density, bilateral breasts
CPT/HCPCS: 77063; 77067

== ENCOUNTER 2025-06-28 02:06 | Emergency (ER) | payer MEDICARE, OTHER, SELFPAY ==
[2025-06-28 02:20] VITALS: BP 135/102; PULSE 64; RESP 18; TEMP 36.6; O2SAT 95; BMI 25.8
[2025-06-28 02:28] VITALS: BP 135/102; PULSE 65; RESP 16; O2SAT 93
[2025-06-28 03:33] LABS: Hematocrit 35.1 % (36-47); Hemoglobin 11.30 g/dL (11.27-16.99); Mean Corpuscular HGB Conc 32.2 g/dL (30-55); Mean Corpuscular Hemoglobin 28.8 pg (27-33); Mean Corpuscular Volume 89.5 fl (85-98); Nucleated Red Blood Cells % 0 %; Platelet Count 222 10^3/cmm (157-399); Red Blood Count 3.92 10^6/uL (3.85-5.65); White Blood Count 6.58 10^3/uL (3.29-11.43)
[2025-06-28 03:41] LABS: Add Urine Microscopic? NO
[2025-06-28 03:44] LABS: Alanine Aminotransferase 10 U/L (0-33); Albumin Level 3.8 g/dL (3.5-5.2); Alkaline Phosphatase 112 U/L (35-105); Anion Gap 14.2 (5-19); Aspartate Amino Transferase 14 U/L (0-32); Blood Urea Nitrogen 22 mg/dL (8-23); Calcium 9.3 mg/dL (8.5-10.5); Carbon Dioxide 26 mmol/L (22-29); Chloride 100 mmol/L (98-107); Globulin 2.5 g/dL (1.3-4.6); Glucose 312 mg/dL (65-115); Osmolality Calculated 297 mOsm/kg (285-295); Potassium 4.2 mmol/L (3.5-5.1); Sodium 136 mmol/L (136-145); Total Protein 6.3 g/dL (6.6-8.7)
[2025-06-28 03:55] LABS: Creatinine Clr Calc Pharmacy 41.1889
[2025-06-28 03:59] LABS: Charge for UA Resulting for Rev; Glucose Urine UA 2+ (Normal); Nitrate Urine Negative (Negative); Specific Gravity, Urine 1.000 (1.005-1.030)
--- NOTE | 2025-06-28 04:19 | ED_ITS ---
HPI - Female Genitourinary 2 General: Chief complaint: Urogenital-Female Stated complaint: Can Not Pee Time Seen by Provider: 06/28/25 03:01 History of Present Illness: Patient is an 84-year-old female presenting with urinary difficulties for the past couple of days, worsening today. She reports an associated weight gain of 9 pounds over approximately 3 days. Patient describes the urination as 'irritating' but denies cristina pain or burning sensation. She notes mild back discomfort but is uncertain if this is related to her urinary symptoms or her gardening activities. Patient denies noticing significant new swelling in her legs, though reports one leg is chronically swollen. She denies fever, vomiting, or other associated symptoms. Of note, patient has a history of kidney failure in 2008, raising concern for possible recurrent renal dysfunction. Related Data Home Medications ?Medication ?Instructions ?Recorded ?Confirmed cholecalciferol (vitamin D3) 50 PO 12/24/24 05/01/25 mcg (2,000 unit) tablet (Vitamin D3) Previous Rx's ?Medication ?Instructions ?Recorded flash glucose sensor (FreeStyle #1 kit 11/25/22 Linda 2 Sensor kit) cetirizine 10 mg tablet See Rx Instructions .Route 0 12/30/24 .COMPLEX #30 tabs pen needle, diabetic 31 gauge x #100 ea 01/13/2501/31 (TRUEplus Pen Needle) apixaban 2.5 mg tablet 2.5 mg PO BID #60 tabs 02/12 atorvastatin 40 mg tablet 40 mg PO DAILY #90 tabs 01/17 05/12 febuxostat 40 mg tablet See Rx Instructions .Route 0 02/12/25 .COMPLEX #30 tabs insulin aspart U-100 100 unit/mL See Rx Instructions . Route 02/12/25 (3 mL) subcutaneous pen (Novolog .COMPLEX #30 mL FlexPen U-100 Insulin aspart) methimazole 5 mg tablet See Rx Instructions .Route 0 02/12/25 .COMPLEX #90 tabs pantoprazole 40 mg tablet,delayed See Rx Instructions .Route 02/12/25 release .COMPLEX #90 tabs blood sugar diagnostic (True #100 ea 04/09/25 Metrix Glucose Test Strip) amlodipine 5 mg-valsartan 160 1 tab PO DAILY #90 tabs 04/14/25 mg-hydrochlorothiazide 12.5 mg tablet insulin glargine 100 unit/mL (3 See Rx Instructions .R oute 04/24/25 mL) subcutaneous pen (Lantus .COMPLEX #63 mL Solostar U-100 Insulin) tizanidine 4 mg tablet 4 mg PO BID PRN muscle spast icity 05/21/25 #60 tabs metoprolol succinate 50 mg See Rx Instructions .Route 05/23/25 tablet,extended release 24 hr .COMPLEX #90 tabs hydrocodone 5 mg-acetaminophen 325 See Rx Instructions PO Q4H 30 days 05/26/25 mg tablet #112 tabs phenazopyridine 100 mg tablet 100 mg PO TID PRN dysuri a #10 tabs 06/28/25 Allergies Allergy/AdvReac Type Severity Reaction Status Date / Time aspirin Allergy vomit Verified 05/01/25 15:52 codeine Allergy vomit Verified 05/01/25 15:52 liraglutide (From Victoza) Allergy ADR-Vomitin Verified 05/01/25 15:52 g meperidine (From Demerol) Allergy vomit Verified 05/01/25 15:52 Penicillins Allergy hives Verified 05/01/25 15:52 PFS ED 2 PFSH: Medical History (Updated 06/28/25 @ 04:22 by Michael Grace DO) History of COVID-19 Ectopic gastric mucosa GERD (gastroesophageal reflux disease) Warfarin anticoagulation Environmental and seasonal allergies History of nonmelanoma skin cancer Diabetes Persistent atrial fibrillation History of pacemaker History of staph infection Surgical History History of esophagogastroduodenoscopy (EGD) Family History Other Hypertension Social History Smoking and tobacco/nicotine status: never used tobacco/nicotine Second hand smoke exposure: No Alcohol intake: never Substance/Drug Use: never Lives independently: Yes Household members: children Marital status: / Current occupational status: retired Current gender identity: Female Special paz needs: No Female Reproductive History: Spontaneous abortions: No Physical Exam 2 Const: COMMON NORMALS: no acute distress GENERAL APPEARANCE: cooperative; not ill appearing and not frail appearing HENMT: COMMON NORMALS: normocephalic, atraumatic and Normal external nose present HEAD & SCALP: normocephalic and atraumatic FACE & SINUS: normal facial exam and face symmetric NOSE: Normal external nose present Eye: COMMON NORMALS: Equal, round and reactive pupils present and EOMs intact bilaterally PUPIL: Yes Equal, round and reactive pupils present Neck/C-Spine: GENERAL: Yes trachea midline Chest: CHEST: Yes Symmetrical chest wall rise Resp: COMMON NORMALS: normal respiratory effort, No retractions, No use of accessory muscles and clear to auscultation bilaterally AUSCULTATION: clear to auscultation bilaterally Cardio: COMMON NORMALS: regular rate and regular rhythm RATE: regular rate RHYTHM: regular rhythm GI: COMMON NORMALS: Normal to inspection, nondistended, normoactive bowel sounds present Extremity: COMMON NORMALS: no pedal edema Neuro: DMITRIY COMA SCALE: document GCS findings Fairlee coma scale eye opening: Spontaneous [place] coma scale verbal response: Orientated [place] coma scale motor response: Obey commands Fairlee coma scale total score: 15 S ENSORY EXAM: Yes extremities (intact) Psych: COMMON NORMALS: speech normal SPEECH: Yes normal speech Skin: COMMON NORMALS: no rashes or lesions noted GENERAL SKIN EXAM: no rashes or lesions noted Course 2 Vital Signs: Vital signs: Vital Signs Temperature 98 F 06/28/25 02:20 Pulse Rate 62 06/28/25 04:45 Respiratory Rate 16 06/28/25 02:28 Blood Pressure 135/102 06/28/25 04:45 Pulse Oximetry 90 06/28/25 04:45 Oxygen Delivery Me thod Room Air 06/28/25 02:28 [facility] - Female Medical Decision Making 84-year-old bride female with urinary frequency and dysuria with urgency. Your analysis is negative for infection. Creatinine is normal. Her CRP is three. She does not appear to be fluid overloaded clinically. Bladder scan pre-void, yield 300 mL she appears to have good output on attempted urination. She does have some glucose in her urine, with a serum level of 300. She will watch her sugars more closely. She?ll return for any worsening symptoms. She is prescribed azo for The dysuria. She?s stable for discharge currently. Lab Data 06/28/25 03:16 06/28/25 03:16 Laboratory Results WBC 6.58 10^3/uL (3.29-11.43) 06/28/25 03:16 RBC 3.92 10^6/uL (3.85-5.65) 06/28/25 03:16 Hgb 11.30 g/dL (11.27-16.99) 06/28/25 03:16 Hct 35.1 % (36-47) L 06/28/25 03:16 MCV 89.5 fl (85-98) 06/28/25 03:16 MCH 28.8 pg (27-33) 06/28/25 03:16 MCHC 32.2 g/dL (30-55) 06/28/25 03:16 RDW 12.6 % (12.1-15.1) 06/28/25 03:16 Plt Count 222 10^3/cmm (157-399) 06/28/25 03:16 MPV 9.7 fL (7.4-10.4) 06/28/25 03:16 Neut % (Auto) 56.4 % 06/28/25 03:16 Lymph % (Auto) 28.7 % 06/28/25 03:16 [place] % (Auto) 10.2 % 06/28/25 03:16 Eos % (Auto) 3.6 % 06/28/25 03:16 Baso % (Auto) 0.8 % 06/28/25 03:16 Neut # (Auto) 3.71 10^3/uL (1.8-7.7) 06/28/25 03:16 Lymph # (Auto) 1.9 10^3/uL (0.8-4.8) 06/28/25 03:16 [place] # (Auto) 0.7 10^3/uL (0.2-0.9) 06/28/25 03:16 Eos # (Auto) 0.2 10^3/uL (0.0-0.8) 06/28/25 03:16 Baso # (Auto) 0.1 10^3/uL (0.0-0.1) 06/28/25 03:16 Nucleated RBC % (auto) 0 % 06/28/25 03:16 Nucleated RBCs # 0.0 /100WBC 06/28/25 03:16 Sodium 136 mmol/L (136-145) 06/28/25 03:16 Potassium 4.2 mmol/L (3.5-5.1) 06/28/25 03:16 Chloride 100 mmol/L (98-107) 06/28/25 03:16 Carbon Dioxide 26 mmol/L (22-29) 06/28/25 03:16 Anion Gap 14.2 (5-19) 06/28/25 03:16 BUN 22 mg/dL (8-23) 06/28/25 03:16 Creatinine 1.0 mg/dL (0.5-0.9) H 06/28/25 03:16 GFR Calculation Not Reportable 06/28/25 03:16 Glucose 312 mg/dL (65-115) H 06/28/25 03:16 Calculated Osmolality 297 mOsm/kg (285-295) H 06/28/25 03:16 Calcium 9.3 mg/dL (8.5-10.5) 06/28/25 03:16 Total Bilirubin 0.4 mg/dL (0.15-1.2) 06/28/25 03:16 AST 14 U/L (0-32) 06/28/25 03:16 ALT 10 U/L (0-33) 06/28/25 03:16 Alkaline Phosphatase 112 U/L (35-105) H 06/28/25 03:16 C-Reactive Protein 3.0 mg/L (0.0-4.9) 06/28/25 03:16 Total Protein 6.3 g/dL (6.6-8.7) L 06/28/25 03:16 Albumin 3.8 g/dL (3.5-5.2) 06/28/25 03:16 Globulin 2.5 g/dL (1.3-4.6) 06/28/25 03:16 Urine Color Yellow (Yellow) 06/28/25 03:22 Urine Appearance Clear (CLEAR) 06/28/25 03:22 Urine pH 5 (5-7) 06/28/25 03:22 Ur Specific [place] 1.000 (1.005-1.030) L 06/28/25 03:22 Urine Protein Neg (Negative) 06/28/25 03:22 Urine Glucose (UA) 2+ (Normal) H 06/28/25 03:22 Urine Ketones Negative (Negative) 06/28/25 03:22 Urine Blood Neg (Negative) 06/28/25 03:22 Urine Nitrate Negative (Negative) 06/28/25 03:22 Urine Bilirubin Neg (Negative) 06/28/25 03:22 Urine Urobilinogen Norm mg/dL (Negative) 06/28/25 03:22 Ur Leukocyte Esterase Negative (Negative) 06/28/25 03:22 Amorphous Sediment Not Reportable 06/28/25 03:22 No radiology studies performed this visit Discharge Plan Discharge Patient Disposition: Home Clinical Impression: Dysuria, Hyperglycemia Condition: Stable Prescriptions: New phenazopyridine 100 mg tablet 100 mg PO TID PRN (Reason: dysuria) Qty: 10 0RF No Action tizanidine 4 mg tablet 4 mg PO BID PRN (Reason: muscle spasticity) Qty: 60 0RF cholecalciferol (vitamin D3) [Vitamin D3] 50 mcg (2,000 unit) tablet PO apixaban 2.5 mg tablet 2.5 mg PO BID Qty: 60 5RF atorvastatin 40 mg tablet 40 mg PO DAILY Qty: 90 3RF Rx Instructions: TAKE ONE TABLET BY MOUTH EVERY DAY febuxostat 40 mg tablet See Rx Instructions .ROUTE .COMPLEX Qty: 30 4RF Dose Instruction: TAKE ONE TABLET BY MOUTH EVERY DAY Rx Instructions: TAKE ONE TABLET BY MOUTH EVERY DAY insulin aspart U-100 [Novolog FlexPen U-100 Insulin] 100 unit/mL (3 mL) insulin pen See Rx Instructions .ROUTE .COMPLEX Qty: 30 5RF Dose Instruction: inject using sliding scale THREE TIMES DAILY UP TO 100 units DAILY Rx Instructions: inject using sliding scale THREE TIMES DAILY UP TO 100 units DAILY methimazole 5 mg tablet See Rx Instructions .ROUTE .COMPLEX Qty: 90 1RF Dose Instruction: TAKE ONE TABLET BY MOUTH DAILY Rx Instructions: TAKE ONE TABLET BY MOUTH DAILY pantoprazole 40 mg tablet,delayed release (DR/EC) See Rx Instructions .ROUTE .COMPLEX Qty: 90 2RF Dose Instruction: TAKE ONE TABLET BY MOUTH DAILY Rx Instructions: TAKE ONE TABLET BY MOUTH DAILY vfferjfruo-cxmwrtmqp-rsetfyzyd 5-160-12.5 mg tablet 1 tab PO DAILY Qty: 90 1RF (DME) FreeStyle Linda 2 Sensor Kit See Rx Instructions .ROUTE .COMPLEX Qty: 1 0RF Dose Instruction: DIRECTED Rx Instructions: DIRECTED cetirizine 10 mg tablet See Rx Instructions .ROUTE .COMPLEX Qty: 30 3RF Dose Instruction: TAKE 1 TABLET BY MOUTH EVERY DAY Rx Instructions: TAKE 1 TABLET BY MOUTH EVERY DAY (DME) pen needle, diabetic [TRUEplus Pen Needle] 31 gauge x 5/16 needle See Rx Instructions .ROUTE .COMPLEX Qty: 100 3RF Dose Instruction: USE DIRECTED FIVE TIMES DAILY Rx Instructions: USE DIRECTED FIVE TIMES DAILY (DME) True Metrix Glucose Test Strip Strip See Rx Instructions .ROUTE .COMPLEX Qty: 100 2RF Dose Instruction: USE DIRECTED TO TEST THREE TIMES DAILY Rx Instructions: USE DIRECTED TO TEST THREE TIMES DAILY Lantus Solostar U-100 Insulin 100 unit/mL (3 mL) insulin pen See Rx Instructions .ROUTE .COMPLEX Qty: 63 3RF Dose Instruction: inject 35 units SUBCUTANEOUSLY TWICE DAILY Rx Instructions: Administer 25 units sub-q twice daily. metoprolol succinate 50 mg tablet extended release 24 hr See Rx Instructions .ROUTE .COMPLEX Qty: 90 3RF Dose Instruction: TAKE 1 AND 1/2 TABLETS BY MOUTH DAILY Rx Instructions: TAKE 1 tablet PO daily. hydrocodone-acetaminophen 5-325 mg tablet See Rx Instructions PO Q4H 30 Days Qty: 112 0RF Rx Instructions: take 1/2 to 1 tab orally every 4 hour as needed for pain. Discharge Orders: Discharge ED (Routine); Ordered 06/28/25 Ordered By: Michael Grace Referrals: Diego Saucedo DO [Primary Care Provider, Family Practice] - 4-7 days Patient Instructions: Dysuria (ED), Diabetic Hyperglycemia (ED), Opioid Safety, Pain Management, Patient Portal & Jose Instructions Activity Restrictions/Additional Instructions: Watch your blood sugars closely, as it can affect the emptying of your bladder, and dysuria symptoms. Return for fever, vomiting, increasing pain despite treatment, or other concerning symptoms. Follow-up with your doctor this coming week. Call Monday for an appointment. Print Language: Serbian Coding Level of Care Code ED Swine Extension Field Specialist for Maria Luisa Ingram
[2025-06-28 04:45] VITALS: BP 135/102; PULSE 62; O2SAT 90
== END 2025-06-28 04:46 | disposition home or self-care (01) ==
PROVIDERS: Emergency Provider Emergency Medicine; PCP Family Medicine
DX: R30.0 Dysuria (principal); E11.65 Type 2 diabetes mellitus with hyperglycemia; Z79.4 Long term (current) use of insulin
CPT/HCPCS: 36415; 51798; 80053; 81003; 85025; 86140; 99283

== ENCOUNTER → 2025-07-04 10:26 | Outpatient (BNVA) | payer MEDICARE, OTHER, SELFPAY | PROVIDERS: PCP Family Medicine; Visit Provider Specialist | DX: M17.0 Bilateral primary osteoarthritis of knee (principal) | CPT/HCPCS: 20610; J7327 ==

== ENCOUNTER 2025-08-16 16:33 | Emergency (ER) | payer MEDICARE, OTHER, SELFPAY ==
[2025-08-16 16:33] VITALS: BP 135/69; PULSE 66; RESP 16; TEMP 36.6; O2SAT 98; BMI 28.2
--- NOTE | 2025-08-16 16:36 | XRR_ITS ---
PROCEDURE INFORMATION: Exam: XR Chest Exam date and time: 08/16/2025 4:40 PM Age: 84 years old Clinical indication: Pain; Chest pressure and left-sided; Prior surgery; Surgery date: 6+ months; Surgery type: Right side pacemaker; Additional info: Cp TECHNIQUE: Imaging protocol: Radiologic exam of the chest. Views: 1 view. COMPARISON: CR XR chest 1V portable [id number] 04/25/2025 6:35 AM FINDINGS: Lungs: There is persistent hazy density in the left lower lung follow-up by PA and lateral chest recommended to rule out left retrocardiac pneumonia. Right lung is clear. Pleural spaces: Unremarkable. No pleural effusion. No pneumothorax. Heart/Mediastinum: Mild tortuosity thoracic aorta. No cardiomegaly. Two lead AICD. Bones/joints: Mild right convexity scoliosis. Spurring off the superior aspect distal left clavicle. Upper abdomen: Unremarkable. XR/XR chest 1V portable [id number] IMPRESSION: 1. Persistent hazy increased density in the left lower lung. PA and lateral chest recommended. 2. Two lead AICD.
--- NOTE | 2025-08-16 16:36 | W.ED.CHESTPA ---
HPI - Chest Pain General: Chief Complaint: Chest Pain Stated Complaint: cp Time Seen by Provider: 08/16/25 16:33 Source: patient and EMS Mode of arrival: EMS Limitations: no limitations History of Present Illness: 84-year-old female who states that she has been having chest pain over the last 5 to 6 hours. States it is a sharp pain left side of her chest much worse with movement of her arm and palpation. She states its improved currently a 5 out of 10 much improved with rest. She denies any shortness of breath denies any fevers denies any cough. Denies any radiation of her pain Related Data Home Medications ?Medication ?Instructions ?Recorded ?Confirmed cholecalciferol (vitamin D3) 50 PO 12/24/24 07/04/25 mcg (2,000 unit) tablet (Vitamin D3) Previous Rx's ?Medication ?Instructions ?Recorded flash glucose sensor (FreeStyle #1 kit 11/25/22 Linda 2 Sensor kit) atorvastatin 40 mg tablet 40 mg PO DAILY #90 tabs 02/12/25 febuxostat 40 mg tablet See Rx Instructions .Route 02/12/25 .COMPLEX #30 tabs insulin aspart U-100 100 unit/mL See Rx Instructions .Route 02/12/25 (3 mL) subcutaneous pen (Novolog .COMPLEX #30 mL FlexPen U-100 Insulin aspart) methimazole 5 mg tablet See Rx Instructions .Route 02/12/25 .COMPLEX #90 tabs pantoprazole 40 mg tablet,delayed See Rx Instructions .Route 02/12/25 release .COMPLEX #90 tabs blood sugar diagnostic (True #100 ea 04/09/25 Metrix Glucose Test Strip) amlodipine 5 mg-valsartan 160 1 tab PO DAILY #90 tabs 04/14/25 mg-hydrochlorothiazide 12.5 mg tablet insulin glargine 100 unit/mL (3 See Rx Instructions .Route 04/24/25 mL) subcutaneous pen (Lantus .COMPLEX #63 mL Solostar U-100 Insulin) metoprolol succinate 50 mg See Rx Instructions .Route 05/23/25 tablet,extended release 24 hr .COMPLEX #90 tabs apixaban 2.5 mg tablet 2.5 mg PO BID #60 tabs 07/01/25 mirabegron 25 mg tablet,extended 25 mg PO DAILY #30 tabs 07/09/25 release 24 hr pen needle, diabetic 31 gauge x #100 ea 07/09/25 5/16 (TRUEplus Pen Needle) cetirizine 10 mg tablet See Rx Instructions .Route 07/10/25 .COMPLEX #30 tabs cefdinir 300 mg capsule 300 mg PO BID #14 caps 07/24/25 hydrocodone 5 mg-acetaminophen 325 See Rx Instructions PO Q4H 30 days 07/24/25 mg tablet #112 tabs uibejzjx-cqqfvgjzk-motpamttm 3.5 4 drp otic (ear) Q8H #10 mL 07/24/25 mg-10,000 unit/mL-1 % ear drops,susp Allergies Allergy/AdvReac Type Severity Reaction Status Date / Time aspirin Allergy vomit Verified 07/04/25 10:35 codeine Allergy vomit Verified 07/04/25 10:35 liraglutide (From Victoza) Allergy ADR-Vomitin Verified 07/04/25 10:35 g meperidine (From Demerol) Allergy vomit Verified 07/04/25 10:35 Penicillins Allergy hives Verified 07/04/25 10:35 Review of Systems Card: Reports: chest pain PFSH ED PFSH: Medical History History of COVID-19 Ectopic gastric mucosa GERD (gastroesophageal reflux disease) Warfarin anticoagulation Environmental and seasonal allergies History of nonmelanoma skin cancer Diabetes Persistent atrial fibrillation History of pacemaker History of staph infection Surgical History History of esophagogastroduodenoscopy (EGD) Family History Other Hypertension Social History Smoking and tobacco/nicotine status: never used tobacco/nicotine Second hand smoke exposure: No Alcohol intake: never Substance/Drug Use: never Lives independently: Yes Household members: children Marital status: / Current occupational status: retired Current gender identity: Female Special paz needs: No Female Reproductive History: Spontaneous abortions: No Physical Exam Const: COMMON NORMALS: no acute distress, patient oriented x3 and healthy appearing HENMT: COMMON NORMALS: normocephalic and atraumatic HEAD & SCALP: normocephalic and atraumatic Neck/C-Spine: COMMON NORMALS: full ROM and supple Chest: COMMONS NORMALS: normal inspection of the chest Resp: COMMON NORMALS: normal respiratory effort, No retractions, No use of accessory muscles and clear to auscultation bilaterally AUSCULTATION: clear to auscultation bilaterally Cardio: COMMON NORMALS: regular rate, regular rhythm and No murmurs present (Cardio) RATE: regular rate RHYTHM: regular rhythm GI: COMMON NORMALS: Normal to inspection, nondistended, normoactive bowel sounds present, Soft to palpation and no masses PALPATION: Yes Soft to palpation OTHER: Point tender left side of the chest reproducible with palpation Extremity: COMMON NORMALS: normal to inspection and full ROM Neuro: COMMON NORMALS: patient oriented x3, moves all extremities and no focal motor deficits Psych: COMMON NORMALS: mental status grossly normal, Normal thought process present and cooperative THOUGHT PROCESS: Normal thought process present Skin: COMMON NORMALS: no rashes or lesions noted and no wounds GENERAL SKIN EXAM: no rashes or lesions noted Course Vital Signs: Vital signs: Vital Signs Temperature 97.8 F 08/16/25 16:33 Pulse Rate 64 08/16/25 17:00 Respiratory Rate 15 08/16/25 17:00 Blood Pressure 132/71 08/16/25 17:00 Pulse Oximetry 95 08/16/25 17:00 Oxygen Delivery Me thod Room Air 08/16/25 17:00 MDM - Chest Pain Medical Decision Making Patient presents here with chest pain. Differential includes chest wall pain, ACS, pneumonia. Did review and interpret her chest x-ray showed no acute abnormalities. Lab work here showed no significant abnormalities troponin here is 32 which is not changed from her previous. I do not believe she has ACS. She states she been carrying a lot of heavy bags over Thanksgiving and her pain is reproducible pain likely chest wall pain. She feels much improved after morphine. I did tell her that I would recommend a 2-hour troponin but she states she feels improved and like to go home she is to follow-up with her PCP and return if worsening she understands agrees to plan. EKG time 1638 paced rhythm heart rate [address] elevation QRS 111 QTc 413 Medical Records I reviewed the patient's medical records. Lab Data I reviewed the patient's lab results. 08/16/25 16:42 08/16/25 17:05 Radiology Impressions Chest X-Ray 08/16/25 16:36 IMPRESSION: 1. Persistent hazy increased density in the left lower lung. PA and lateral chest recommended. 2. Two lead AICD. Laboratory Results WBC 6.07 10^3/uL (3.29-11.43) 08/16/25 16:42 RBC 3.75 10^6/uL (3.85-5.65) L 08/16/25 16:42 Hgb 10.90 g/dL (11.27-16.99) L 08/16/25 16:42 Hct 33.5 % (36-47) L 08/16/25 16:42 MCV 89.3 fl (85-98) 08/16/25 16:42 MCH 29.1 pg (27-33) 08/16/25 16:42 MCHC 32.5 g/dL (30-55) 08/16/25 16:42 RDW 12.4 % (12.1-15.1) 08/16/25 16:42 Plt Count 241 10^3/cmm (157-399) 08/16/25 16:42 MPV 10.7 fL (7.4-10.4) H 08/16/25 16:42 Neut % (Auto) 58.8 % 08/16/25 16:42 Lymph % (Auto) 28.3 % 08/16/25 16:42 [place] % (Auto) 8.4 % 08/16/25 16:42 Eos % (Auto) 3.3 % 08/16/25 16:42 Baso % (Auto) 1.0 % 08/16/25 16:42 Neut # (Auto) 3.57 10^3/uL (1.8-7.7) 08/16/25 16:42 Lymph # (Auto) 1.7 10^3/uL (0.8-4.8) 08/16/25 16:42 [place] # (Auto) 0.5 10^3/uL (0.2-0.9) 08/16/25 16:42 Eos # (Auto) 0.2 10^3/uL (0.0-0.8) 08/16/25 16:42 Baso # (Auto) 0.1 10^3/uL (0.0-0.1) 08/16/25 16:42 Nucleated RBC % (auto) 0 % 08/16/25 16:42 Nucleated RBCs # 0.0 /100WBC 08/16/25 16:42 Sodium 139 mmol/L (136-145) 08/16/25 17:05 Potassium 4.4 mmol/L (3.5-5.1) 08/16/25 17:05 Chloride 105 mmol/L (98-107) 08/16/25 17:05 Carbon Dioxide 26 mmol/L (22-29) 08/16/25 17:05 Anion Gap 12.4 (5-19) 08/16/25 17:05 BUN Cancelled 08/16/25 16:42 Creatinine Cancelled 08/16/25 16:42 GFR Calculation Not Reportable 08/16/25 17:05 Glucose Cancelled 08/16/25 16:42 Calculated Osmolality Cancelled 08/16/25 16:42 Calcium 9.2 mg/dL (8.5-10.5) 08/16/25 17:05 Total Bilirubin 0.4 mg/dL (0.15-1.2) 08/16/25 17:05 AST 11 U/L (0-32) 08/16/25 17:05 ALT 9 U/L (0-33) 08/16/25 17:05 Alkaline Phosphatase 104 U/L (35-105) 08/16/25 17:05 Troponin T Baseline 32 ng/L (0-10) H 08/16/25 16:42 Total Protein Cancelled 08/16/25 16:42 Albumin 3.6 g/dL (3.5-5.2) 08/16/25 17:05 Globulin 2.6 g/dL (1.3-4.6) 08/16/25 17:05 All radiology interpretation(s) finalized by discharge Discharge Plan Discharge Patient Disposition: Home Clinical Impression: Atypical chest pain Condition: Stable Prescriptions: No Action cefdinir 300 mg capsule 300 mg PO BID Qty: 14 0RF brfzlhzi-txgbamart-KW 3.5-10,000-1 mg/mL-unit/mL-% drops,suspension 4 drp otic (ear) Q8H Qty: 10 0RF cholecalciferol (vitamin D3) [Vitamin D3] 50 mcg (2,000 unit) tablet PO atorvastatin 40 mg tablet 40 mg PO DAILY Qty: 90 3RF Rx Instructions: TAKE ONE TABLET BY MOUTH EVERY DAY febuxostat 40 mg tablet See Rx Instructions .ROUTE .COMPLEX Qty: 30 4RF Dose Instruction: TAKE ONE TABLET BY MOUTH EVERY DAY Rx Instructions: TAKE ONE TABLET BY MOUTH EVERY DAY insulin aspart U-100 [Novolog FlexPen U-100 Insulin] 100 unit/mL (3 mL) insulin pen See Rx Instructions .ROUTE .COMPLEX Qty: 30 5RF Dose Instruction: inject using sliding scale THREE TIMES DAILY UP TO 100 units DAILY Rx Instructions: inject using sliding scale THREE TIMES DAILY UP TO 100 units DAILY methimazole 5 mg tablet See Rx Instructions .ROUTE .COMPLEX Qty: 90 1RF Dose Instruction: TAKE ONE TABLET BY MOUTH DAILY Rx Instructions: TAKE ONE TABLET BY MOUTH DAILY pantoprazole 40 mg tablet,delayed release (DR/EC) See Rx Instructions .ROUTE .COMPLEX Qty: 90 2RF Dose Instruction: TAKE ONE TABLET BY MOUTH DAILY Rx Instructions: TAKE ONE TABLET BY MOUTH DAILY fbahxoieoj-mrlraautn-oegsfcdaw 5-160-12.5 mg tablet 1 tab PO DAILY Qty: 90 1RF (DME) FreeStyle Linda 2 Sensor Kit See Rx Instructions .ROUTE .COMPLEX Qty: 1 0RF Dose Instruction: DIRECTED Rx Instructions: DIRECTED (DME) True Metrix Glucose Test Strip Strip See Rx Instructions .ROUTE .COMPLEX Qty: 100 2RF Dose Instruction: USE DIRECTED TO TEST THREE TIMES DAILY Rx Instructions: USE DIRECTED TO TEST THREE TIMES DAILY Lantus Solostar U-100 Insulin 100 unit/mL (3 mL) insulin pen See Rx Instructions .ROUTE .COMPLEX Qty: 63 3RF Dose Instruction: inject 35 units SUBCUTANEOUSLY TWICE DAILY Rx Instructions: Administer 25 units sub-q twice daily. metoprolol succinate 50 mg tablet extended release 24 hr See Rx Instructions .ROUTE .COMPLEX Qty: 90 3RF Dose Instruction: TAKE 1 AND 1/2 TABLETS BY MOUTH DAILY Rx Instructions: TAKE 1 tablet PO daily. apixaban 2.5 mg tablet 2.5 mg PO BID Qty: 60 11RF mirabegron 25 mg tablet extended release 24 hr 25 mg PO DAILY Qty: 30 5RF (DME) pen needle, diabetic [TRUEplus Pen Needle] 31 gauge x 5/16 needle See Rx Instructions .ROUTE .COMPLEX Qty: 100 3RF Dose Instruction: USE DIRECTED FIVE TIMES DAILY Rx Instructions: USE DIRECTED FIVE TIMES DAILY cetirizine 10 mg tablet See Rx Instructions .ROUTE .COMPLEX Qty: 30 3RF Dose Instruction: TAKE 1 TABLET BY MOUTH EVERY DAY Rx Instructions: TAKE 1 TABLET BY MOUTH EVERY DAY hydrocodone-acetaminophen 5-325 mg tablet See Rx Instructions PO Q4H 30 Days Qty: 112 0RF Rx Instructions: take 1/2 to 1 tab orally every 4 hour as needed for pain. Discharge Orders: Discharge ED (Routine); Ordered 08/16/25 Ordered By: Joyce Bonner Referrals: Diego Saucedo DO [Primary Care Provider, [facility]] - 4-7 days Discharge Diet: Advance as tolerated Discharge Activity: Resume usual activity Patient Instructions: Chest Wall Pain (ED) Print Language: Irish Coding Level of Care Code ED Hang Gliding Instructor for Chg Fwd Heart Score HEART Score Components History: Slightly Suspicous EKG: Normal Age: 65 or more yrs Risk Factors: 1 or 2 Risk Factors Troponin: Baseline Trop 16-45 ng/L HEART Score RESULT HEART Score: 4
[2025-08-16 16:48] LABS: Hematocrit 33.5 % (36-47); Hemoglobin 10.90 g/dL (11.27-16.99); Mean Corpuscular HGB Conc 32.5 g/dL (30-55); Mean Corpuscular Hemoglobin 29.1 pg (27-33); Mean Corpuscular Volume 89.3 fl (85-98); Nucleated Red Blood Cells % 0 %; Platelet Count 241 10^3/cmm (157-399); Red Blood Count 3.75 10^6/uL (3.85-5.65); White Blood Count 6.07 10^3/uL (3.29-11.43)
[2025-08-16 16:53] VITALS: PULSE 61; RESP 17; O2SAT 95
[2025-08-16 17:00] VITALS: BP 132/71; PULSE 64; RESP 15; O2SAT 95
[2025-08-16 17:05] LABS: Troponin(5th) Baseline 32 ng/L (0-10)
[2025-08-16 17:29] LABS: Alanine Aminotransferase 9 U/L (0-33); Albumin Level 3.6 g/dL (3.5-5.2); Alkaline Phosphatase 104 U/L (35-105); Anion Gap 12.4 (5-19); Aspartate Amino Transferase 11 U/L (0-32); Blood Urea Nitrogen 28 mg/dL (8-23); Calcium 9.2 mg/dL (8.5-10.5); Carbon Dioxide 26 mmol/L (22-29); Chloride 105 mmol/L (98-107); Globulin 2.6 g/dL (1.3-4.6); Glucose 207 mg/dL (65-115); Osmolality Calculated 300 mOsm/kg (285-295); Potassium 4.4 mmol/L (3.5-5.1); Sodium 139 mmol/L (136-145); Total Protein 6.2 g/dL (6.6-8.7)
[2025-08-16 17:30] VITALS: BP 137/69; PULSE 67; O2SAT 96
--- NOTE | 2025-08-16 17:31 | PC.NURSE ---
Pt refused Toradol, states it makes her vomit, pt also states Dilaudid makes pt vomit as well.
[2025-08-16 17:39] VITALS: BP 137/69; PULSE 66; O2SAT 97
--- NOTE | 2025-08-16 18:36 | ECG_ITS ---
[facility] Date: 2025-08[facility]16 Pat Name: Mae Rosa Department: Room: Gender: Female [employer] Operator: : [id number] Requested By: Joyce Bonner Order Number: [id number] Efrain MD: Spenser Aviles M.D. Measurements Intervals [place] Rate: 65 P: -46 SD: 286 QRS: 6 QRSD: 111 T: 26 QT: 402 QTc: 419 Interpretive Statements ELECTRONIC ATRIAL PACEMAKER ATRIAL PACED VENTRICULAR SENSED RHYTHM NONSPECIFIC T WAVE INVERSION, CONSIDER ISCHEMIA Compared to ECG 04/05/2024 20:05:39 NO SIGNIFICANT CHANGE Electronically Signed On 08-16-2025 16:59:27 FORMATION TESTING OPERATOR by Spenser Aviles M.D. [email or web address]
== END 2025-08-16 17:40 | disposition home or self-care (01) ==
PROVIDERS: Emergency Provider Emergency Medicine; PCP Family Medicine
DX: R07.89 Other chest pain (principal); E11.9 Type 2 diabetes mellitus without complications; Z95.0 Presence of cardiac pacemaker; Z79.01 Long term (current) use of anticoagulants; Z85.828 Personal history of other malignant neoplasm of skin
CPT/HCPCS: 36415; 71045; 80053; 84484; 85025; 93005; 99285